=== PATIENT | female | born 1965 | race Caucasian/White ===

== ENCOUNTER 2017-11-24 11:56 | Emergency (ER) | payer OTHER ==
[2017-11-24] MEDS ORDERED: LOPERAMIDE HCL 2 MG CAPSULE ONE (13:17)
[2017-11-24] MEDS ORDERED: NA CHLORIDE 0.9% 1,000 ML ONE (13:17)
[2017-11-24 13:21] LABS: Absolute Lymphocytes (CBC) 0.7 K/uL (0.7-4.9); Absolute Monocytes 0.4 K/uL (0.1-1.3); Absolute Neutrophil 9.5 K/uL (1.8-8.0); Basophils % 0.7 % (0-1.3); Eosinophils % 0.1 % (0-4.4); Hematocrit 40.5 % (36.0-45.0); Lymphocytes % 6.6 % (15.3-44.8); MCH 28.8 pg (27.0-35.0); MCV 87.3 fL (80-100); MPV 8.6 fL (7.6-11.3); Monocytes % 3.5 % (3.3-12.3); RBC Red Blood Cell Count 4.64 M/uL (3.86-4.86)
[2017-11-24 13:37] LABS: Blood Morphology Comment NOT SEEN (NOT SEEN); Platelet Estimate ADEQ; Urine White Blood Cell Casts OK
[2017-11-24 13:38] LABS: Glomerular Filtration Rate > 60 mL/min (>60)
[2017-11-24 14:12] LABS: Albumin 4.4 g/dL (3.2-5.5); Bilirubin Direct 0.1 mg/dL (0-0.2); Bilirubin Total 0.6 mg/dL (0.3-1.2); Potassium 3.8 mEq/L (3.6-5.0); Protein, Total 7.4 g/dL (6.0-8.3)
[2017-11-24 14:17] LABS: Urine Blood 2+ (NEG); Urine Glucose NEGATIVE (NEG); Urine Protein NEGATIVE (NEG); Urine Specific Gravity 1.025 (1.005-1.030); Urine pH 7.5 (5.0-7.0)
[2017-11-24 14:42] LABS: Urine Bacteria <20 /HPF (<20); Urine Culture Reflex Order NOT NEEDED; Urine Mucus NS /HPF (NONE SEEN)
--- NOTE | 2017-11-24 14:58 | ER ---
Nurse's Notes [facility] Name: Marina Espino Age: 52 yrs Sex: Female : 1965 Arrival Date: 11/24/2017 Time: 11:58 Bed 17 Private MD: David Carbone Diagnosis: Diarrhea, unspecified;Dehydration Presentation: 11/24 12:10 Presenting complaint: Patient states: i got diarrhea that started this AM; complaints hj of abd pain and L arm pain; denies fever and chills;. Transition of care: patient was not received from another setting of care. Onset of symptoms was November 24, 2017. Care prior to arrival: None. 12:10 Method Of Arrival: Wheelchair hj 12:10 Acuity: GERRI 3 hj Triage Assessment: 12:12 General: Appears in no apparent distress. uncomfortable, Behavior is calm, cooperative, hj appropriate for age. Pain: Complains of pain in abdomen and left arm. GI: Reports diarrhea. 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 - Social history:: Smoking status: Patient/guardian denies using tobacco. - Hospitalizations: : No recent hospitalization is reported. - History obtained from: caregiver. Screenin:00 Abuse screen: Denies threats or abuse. Nutritional screening: No deficits noted. em Tuberculosis screening: No symptoms or risk factors identified. Fall Risk None identified. Assessment: 12:37 General: Appears in no apparent distress. comfortable, Behavior is calm, cooperative. em Pain: Complains of pain in left upper quadrant Pain currently is 8 out of 10 on a pain scale. Pain began this morning. Neuro: Level of Consciousness is awake, alert, obeys commands, Oriented to person, place, time, situation. Cardiovascular: Capillary refill < 3 seconds Patient's skin is warm and dry. Respiratory: Airway is patent Respiratory effort is even, unlabored, Respiratory pattern is regular, symmetrical. GI: Abdomen is round Abd is non tender X 4 quads Abd is rigid X 4 quads. : Urine is clear. EENT: No signs and/or symptoms were reported regarding the EENT system. Derm: Skin is intact, Skin is pink, warm \T\ dry. Musculoskeletal: Parent/caregiver report the patient having pt is wheelchair bound, has hx of cerebral palsy. 13:00 Reassessment: Patient appears in no apparent distress at this time. I agree with above iw assessment by Willie Min LVN. 13:40 Reassessment: Patient appears in no apparent distress at this time. Patient and/or em family updated on plan of care and expected duration. Pain level reassessed. Patient is alert, oriented x 3, equal unlabored respirations, skin warm/dry/pink. 14:38 Reassessment: Patient appears in no apparent distress at this time. Patient and/or em family updated on plan of care and expected duration. Pain level reassessed. Patient is alert, oriented x 3, equal unlabored respirations, skin warm/dry/pink. 15:20 Reassessment: Patient appears in no apparent distress at this time. Patient and/or em family updated on plan of care and expected duration. Pain level reassessed. Patient is alert, oriented x 3, equal unlabored respirations, skin warm/dry/pink. Vital Signs: 12:12 BP 113 / 61; Pulse 92; Resp 18; Temp 98.5(TE); Pulse Ox 100% on R/A; Weight 58.97 kg; Height 4 ft. 11 in. (149.86 cm); 13:58 BP 137 / 87; Pulse 98; Resp 15; Pulse Ox 99% on R/A; mh5 14:59 BP 133 / 69; Pulse 78; Resp 16; Pulse Ox 99% on R/A; Pain 5/10; em 12:12 Body Mass Index 26.26 (58.97 kg, 149.86 cm) ED Course: 11:58 Patient arrived in ED. rg4 11:58 David Carbone DO is Private Physician. rg4 12:11 Triage completed. 12:12 Arm band placed on left wrist. 12:23 Arlene Amin FNP is [facility]. kav 12:23 Cristobal Burton MD is Attending Physician. kav 12:55 Willie Min LVN is Primary Nurse. em 13:00 Patient has correct armband on for positive identification. Bed in low position. Call em light in reach. Side rails up X2. Adult w/ patient. 13:00 No provider procedures requiring assistance completed. Initial lab(s) drawn, by me, em sent to lab. Inserted saline lock: 20 gauge in left antecubital area, using aseptic technique. Blood collected. 14:02 Straight cath inserted, using sterile technique, 16 Fr. Returned clear yellow urine. iw Patient tolerated well. 14:02 Urine collected: straight cath specimen, clear. iw 14:10 Urine collected: urine yesenia sent. 5 14:14 Urine Microscopic Only [facility] 14:57 David Carbone DO is Referral Physician. kav 15:28 IV discontinued, intact, bleeding controlled, No redness/swelling at site. Pressure em dressing applied. Administered Medications: 13:04 Drug: NS 0.9% 1000 ml Route: IV; Rate: 1 bolus; Site: left antecubital; em 15:10 Follow up: IV Status: Completed infusion; IV Intake: 1000ml em 13:04 Drug: Imodium A-D 4 mg Route: PO; em 15:10 Follow up: Response: No adverse reaction em 15:20 Not Given (Patient Refused): [place] 5 mg-325 mg 1 tabs PO once kav 15:20 Drug: TORadol 30 mg Route: IM; Site: right deltoid; em 15:29 Follow up: Response: Medication administered at discharge. em Intake: 15:10 IV: 1000ml; Total: 1000ml. em Outcome: 14:57 Discharge ordered by MD. kav 15:28 Discharged to home via wheelchair. em 15:28 Condition: good 15:28 Discharge instructions given to patient, Instructed on discharge instructions, follow up and referral plans. Demonstrated understanding of instructions, follow-up care. 15:31 Patient left the ED. em Signatures: Arlene Amin FNP WASHING AND SCREENING PLANT SUPERVISOR kaWillie Zapata LVN LVN em Tanya Rivero RN RN Chauncey Barron RN RN hj Garcia, Rubi [facility] Iveth Lopez mh5 Corrections: (The following items were deleted from the chart) 12:14 12:12 Pulse 92bpm; Resp 18bpm; Pulse Ox 100% RA; Temp 98.5F Temporal; 58.97 kg; Height hj 4 ft. 11 in.; BMI: 26.2; hj
--- NOTE | 2017-11-24 14:58 | EDPHYS ---
Physician Documentation [facility] Name: Marina Espino Age: 52 yrs Sex: Female : 1965 Arrival Date: 11/24/2017 Time: 11:58 Bed 17 Private MD: David Carbone ED Physician Cristobal Burton HPI: 11/24 12:46 This 52 yrs old Female presents to ER via Wheelchair with complaints of kav Diarrhea. 12:46 The patient presents to the emergency department with diarrhea, 2 times today. Onset: kav The symptoms/episode began/occurred acutely, 6 hour(s) ago. Possible causes: unknown. The symptoms are aggravated by nothing. The symptoms are alleviated by nothing. Associated signs and symptoms: The patient has no apparent associated signs or symptoms. Severity of symptoms: At their worst the symptoms were very mild just prior to arrival, in the emergency department the symptoms are unchanged. The patient has not experienced similar symptoms in the past. The patient has not recently seen a physician. pmhx: cerebal palsy. gas dispenser brought to ed for chief c/o diarrhea x 2 since this moning. gas dispenser gave one dose of imodium and patient continued to have diarrhea so, she brought the patient to the ed for further eval and tx. 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 - Social history:: Smoking status: Patient/guardian denies using tobacco. - Hospitalizations: : No recent hospitalization is reported. - History obtained from: caregiver. ROS: 12:48 Constitutional: Negative for fever, chills, and weight loss, Eyes: Negative for injury, kav pain, redness, and discharge, ENT: Negative for injury, pain, and discharge, Neck: Negative for injury, pain, and swelling, Cardiovascular: Negative for chest pain, palpitations, and edema, Respiratory: Negative for shortness of breath, cough, wheezing, and pleuritic chest pain, Back: Negative for injury and pain, : Negative for injury, bleeding, discharge, and swelling, MS/Extremity: Negative for injury and deformity, Skin: Negative for injury, rash, and discoloration, Neuro: Negative for headache, weakness, numbness, tingling, and seizure, Psych: Negative for depression, anxiety, suicide ideation, homicidal ideation, and hallucinations, Allergy/Immunology: Negative for hives, rash, and allergies, Endocrine: Negative for neck swelling, polydipsia, polyuria, polyphagia, and marked weight changes, Hematologic/Lymphatic: Negative for swollen nodes, abnormal bleeding, and unusual bruising. 12:48 Abdomen/GI: Positive for abdominal pain, of the right upper quadrant, left upper quadrant, right lower quadrant and left lower quadrant. Exam: 12:48 Constitutional: This is a well developed, well nourished patient who is awake, alert, kav and in no acute distress. Head/Face: Normocephalic, atraumatic. Eyes: Pupils equal round and reactive to light, extra-ocular motions intact. Lids and lashes normal. Conjunctiva and sclera are non-icteric and not injected. Cornea within normal limits. Periorbital areas with no swelling, redness, or edema. ENT: Nares patent. No nasal discharge, no septal abnormalities noted. Tympanic membranes are normal and external auditory canals are clear. Oropharynx with no redness, swelling, or masses, exudates, or evidence of obstruction, uvula midline. Mucous membranes moist. Neck: Trachea midline, no thyromegaly or masses palpated, and no cervical lymphadenopathy. Supple, full range of motion without nuchal rigidity, or vertebral point tenderness. No Meningismus. Chest/axilla: Normal chest wall appearance and motion. Nontender with no deformity. No lesions are appreciated. Cardiovascular: Regular rate and rhythm with a normal S1 and S2. No gallops, murmurs, or rubs. Normal PMI, no JVD. No pulse deficits. Respiratory: Lungs have equal breath sounds bilaterally, clear to auscultation and percussion. No rales, rhonchi or wheezes noted. No increased work of breathing, no retractions or nasal flaring. Back: No spinal tenderness. No costovertebral tenderness. Full range of motion. Skin: Warm, dry with normal turgor. Normal color with no rashes, no lesions, and no evidence of cellulitis. MS/ Extremity: Pulses equal, no cyanosis. Neurovascular intact. Full, normal range of motion. Neuro: Awake and alert, GCS 15, oriented to person, place, time, and situation. Cranial nerves II-XII grossly intact. Motor strength 5/5 in all extremities. Sensory grossly intact. Cerebellar exam normal. Normal gait. Psych: Awake, alert, with orientation to person, place and time. Behavior, mood, and affect are within normal limits. 12:48 Abdomen/GI: Inspection: abdomen appears normal, Bowel sounds: normal, in all quadrants, Palpation: abdomen is soft and non-tender, in all quadrants. Vital Signs: 12:12 BP 113 / 61; Pulse 92; Resp 18; Temp 98.5(TE); Pulse Ox 100% on R/A; Weight 58.97 kg; hj Height 4 ft. 11 in. (149.86 cm); 13:58 BP 137 / 87; Pulse 98; Resp 15; Pulse Ox 99% on R/A; mh5 14:59 BP 133 / 69; Pulse 78; Resp 16; Pulse Ox 99% on R/A; Pain 5/10; em 12:12 Body Mass Index 26.26 (58.97 kg, 149.86 cm) MDM: 12:23 Patient medically screened. ka 14:56 Data reviewed: vital signs, nurses notes, lab test result(s). ED course: diarrhea has kav abated. 11/24 12:45 Order name: Amylase, Serum formerly [facility] 11/24 12:45 Order name: Basic Metabolic Panel formerly [facility] 11/24 12:45 Order name: CBC with Diff formerly [facility] 11/24 12:45 Order name: Creatinine for Radiology formerly [facility] 11/24 12:45 Order name: Hepatic Function formerly [facility] 11/24 12:45 Order name: Lipase formerly [facility] 11/24 12:45 Order name: Urine Microscopic Only formerly [facility] 11/24 13:37 Order name: CBC with Automated Diff; Complete Time: 13:41 EDMS 11/24 13:41 Interpretation: Normal except: ALVARO% 89.1; LYM% 6.6; NEUT A 9.5. [facility] 11/24 13:37 Order name: CBC Smear Scan; Complete Time: 13:41 EDMS 11/24 13:41 Interpretation: Within normal limits. 11/24 13:39 Order name: Creatinine (Radiology Only); Complete Time: 13:40 EDMS 11/24 13:41 Interpretation: Within normal limits. 11/24 14:13 Order name: Urine Dipstick--Ancillary (enter results) ms 11/24 14:13 Order name: Urine --Ancillary (enter results) ms 11/24 14:13 Order name: Basic Metabolic Panel; Complete Time: 14:54 EDMS 11/24 14:54 Interpretation: Normal except: GFR 67. 11/24 14:13 Order name: Liver (Hepatic) Function; Complete Time: 14:55 EDMS 11/24 14:55 Interpretation: Within normal limits. 11/24 12:45 Order name: IV Saline Lock; Complete Time: 13:26 [facility] 11/24 12:46 Order name: Labs collected and sent; Complete Time: 13:26 [facility] 11/24 12:46 Order name: Urine Dipstick-Ancillary (obtain specimen); Complete Time: 14:14 11/24 14:13 Order name: Amylase Level; Complete Time: 14:55 EDMS 11/24 14:55 Interpretation: Within normal limits. 11/24 14:13 Order name: Lipase; Complete Time: 14:54 EDMS 11/24 14:54 Interpretation: LIP 15. 11/24 14:17 Order name: Urine --Ancillary; Complete Time: 14:55 EDMS 11/24 14:56 Interpretation: Within normal limits. [facility] 11/24 14:17 Order name: Urine Dipstick-Ancillary; Complete Time: 14:55 EDMS 11/24 14:55 Interpretation: Normal except: UBLD 2+; UPH 7.5. [facility] 11/24 14:43 Order name: Urine Microscopic Only; Complete Time: 14:54 EDMS 11/24 14:54 Interpretation: Normal except: URBC 10-20. [facility] Administered Medications: 13:04 Drug: NS 0.9% 1000 ml Route: IV; Rate: 1 bolus; Site: left antecubital; em 15:10 Follow up: IV Status: Completed infusion; IV Intake: 1000ml em 13:04 Drug: Imodium A-D 4 mg Route: PO; em 15:10 Follow up: Response: No adverse reaction em 15:20 Not Given (Patient Refused): [place] 5 mg-325 mg 1 tabs PO once kav 15:20 Drug: TORadol 30 mg Route: IM; Site: right deltoid; em 15:29 Follow up: Response: Medication administered at discharge. em Disposition: 17:30 Co-signature as Attending Physician, Cristobal Burton MD I agree with the assessment and kdr plan of care. Disposition: 11/24/17 14:57 Discharged to Home. Impression: Diarrhea, unspecified, Dehydration. - Condition is Stable. - Discharge Instructions: Diarrhea, Rotavirus Infection, Dehydration, Adult, [id number], Rehydration, Adult. - Medication Reconciliation Form, Thank You Letter, Antibiotic Education, Prescription Opioid Use form. - Follow up: David Carbone DO; When: 2 - 3 days; Reason: Recheck today's complaints, Continuance of care, Re-evaluation by your physician. - Problem is new. - Symptoms have improved. - Notes: Over The Counter Imodium as needed and as directed Signatures: Dispatcher [employer] EDMS Cristobal Burton MD MD kdr Arlene Amin, ROUTE CLERK ROUTE CLERK Willie Jacobo, GAUGE MACHINE OPERATOR GAUGE MACHINE OPERATOR em Chauncey Barron, RN RN hj Corrections: (The following items were deleted from the chart) 13:25 12:45 Urine Test ordered. kav em 13:41 13:41 Within normal limits. kav kav 13:41 13:41 Within normal limits. kav kav 14:54 13:41 OrderId: [id number] PrecursorText: InterpretationText: kav kav 14:54 14:54 Normal except: LIP 15. kav kav 14:55 13:41 OrderId: [id number] PrecursorText: InterpretationText: kav kav 14:55 14:55 Normal except: UBLD 2+. kav kav 14:56 14:56 Within normal limits. kav kav 14:56 14:56 OrderId: [id number] PrecursorText: InterpretationText: kav kav
[2017-11-24] MEDS ORDERED: HYDROCODONE/APAP 5/325 MG TAB ONE (15:31)
[2017-11-24] MEDS ORDERED: KETOROLAC 30 MG/ML INJ ONE (15:40)
== END 2017-11-24 15:31 | disposition home or self-care (01) ==
LOC: ER 11:56
DX: E86.0 Dehydration (principal); E78.5 Hyperlipidemia, unspecified; F32.9 Major depressive disorder, single episode, unspecified; Z88.0 Allergy status to penicillin
CPT/HCPCS: 36415; 51702; 80048; 80076; 81025; 82150; 83690; 85025; 96360; 96361; 96372; 99283; J7030; 81003; 81015

== ENCOUNTER 2018-03-19 13:50 | Emergency (ER) | payer OTHER ==
[2018-03-19 15:47] LABS: Absolute Lymphocytes (CBC) 1.5 K/uL (0.7-4.9); Absolute Monocytes 0.3 K/uL (0.1-1.3); Absolute Neutrophil 3.6 K/uL (1.8-8.0); Basophils % 1.1 % (0-1.3); Eosinophils % 1.9 % (0-4.4); Hematocrit 38.7 % (36.0-45.0); Lymphocytes % 26.5 % (15.3-44.8); MCH 28.9 pg (27.0-35.0); MCV 85.4 fL (80-100); MPV 8.3 fL (7.6-11.3); Monocytes % 4.8 % (3.3-12.3); RBC Red Blood Cell Count 4.53 M/uL (3.86-4.86)
[2018-03-19 16:10] LABS: Albumin 3.6 g/dL (3.4-5.0); Bilirubin Direct 0.2 mg/dL (0-0.2); Bilirubin Total 0.5 mg/dL (0.2-1.0); Potassium 4.2 mmol/L (3.5-5.1); Protein, Total 7.1 g/dL (6.4-8.2)
[2018-03-19 16:33] LABS: Urine Blood 2+ (NEG); Urine Glucose NEGATIVE (NEG); Urine Protein TRACE (NEG)
[2018-03-19 16:34] LABS: Urine Bacteria 20-50 /HPF (<20); Urine Culture Reflex Order NOT NEEDED; Urine RBC 20-50 /HPF (NONE SEEN)
--- NOTE | 2018-03-19 17:02 | RAD REPORT ---
EXAM DESCRIPTION: CT - Abdomen Pelvis W Contrast - 03/19/2018 4:32 pm CLINICAL HISTORY: Dysuria, left upper quadrant pain COMPARISON: CT study December 2016 TECHNIQUE: Biphasic, helical CT imaging of the abdomen and pelvis was performed following 100 ml non -ionic IV contrast. No oral contrast. All CT scans are performed using dose optimization technique as appropriate and may include automated exposure control or mA/KV adjustment according to patient size. FINDINGS: No suspicious findings in the lung bases. The liver, spleen, and pancreas show no suspicious findings. Gallbladder is tightly contracted. No bi liary tree dilatation. Gallstones can be occult. Symmetric renal function is seen with no hydronephrosis or suspicious renal mass. No pyelonephritis o r acute renal parenchymal process. Urinary bladder is contracted. Rodney of the urinary bladder due ap pear slightly thickened and edematous. Cystitis is possible and can be correlated with any UA abnorma lity. Uterus is absent. Ovaries are absent or atrophic. No adnexal mass. Large amount of fluid is seen filling but not dilating the stomach. No acute gastric wall mass or wal l thickening. No acute large or small bowel finding. Moderate stool volume present in the colon. No free air, free fluid or inflammatory stranding. No hernia, mass or bulky lymphadenopathy. No adrenal abnormality. Disc and bony degenerative changes are present. Thickening of the left oblique musculature near the i leum is unchanged from prior imaging. IMPRESSION: Urinary bladder wall thickening and enhancement suspicious for cystitis. Correlation is needed with any clinical findings or UA abnormalities. No pyelonephritis, hydronephrosis or acute renal process. No acute GI finding identifiable. There is no free air, abscess or surgically emergent finding.
--- NOTE | 2018-03-19 17:13 | EDPHYS ---
Physician Documentation [facility] Name: Marina Espino Age: 52 yrs Sex: Female : 1965 Arrival Date: 03/19/2018 Time: 13:53 Bed 20 Private MD: David Carbone ED Physician Arturo Cameron HPI: 03/19 14:31 This 52 yrs old Female presents to ER via Wheelchair with complaints of jmm Abdominal Pain, Urinary Problem. 14:31 The patient presents with abdominal pain in the left upper quadrant, in the left lower jmm quadrant. Onset: The symptoms/episode began/occurred gradually, 1 week(s) ago. The symptoms do not radiate. Associated signs and symptoms: Pertinent positives: dysuria. This is a 52 year old female with a history of cerebral palsy that presents to the ED with left sided abdominal and flank pain beginning 1 week ago. Patient denies vomiting or diarrhea. 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 - Social history:: Smoking status: Patient/guardian denies using tobacco. - Ebola Screening: : No symptoms or risks identified at this time. ROS: 14:31 Constitutional: Negative for fever, chills, and weight loss, Cardiovascular: Negative jmm for chest pain, palpitations, and edema, Respiratory: Negative for shortness of breath, cough, wheezing, and pleuritic chest pain. 14:31 Back: Negative for injury and pain, : Negative for injury, bleeding, discharge, and swelling. 14:31 Abdomen/GI: Positive for abdominal pain, nausea. 14:31 All other systems are negative. Exam: 14:31 Constitutional: This is a well developed, well nourished patient who is awake, alert, jmm and in no acute distress. Head/Face: atraumatic. Chest/axilla: Normal chest wall appearance and motion. Cardiovascular: Regular rate and rhythm. No edema appreciated Respiratory: Normal respirations, no respiratory distress appreciated 14:31 Abdomen/GI: Inspection: abdomen appears normal, Bowel sounds: normal, Palpation: soft, mild abdominal tenderness, in the left upper quadrant and left lower quadrant. 14:31 Skin: Appearance: Color: normal in color. 14:31 Neuro: Orientation: is normal, Mentation: is normal, Memory: is normal. 14:31 Psych: Behavior/mood is pleasant, cooperative. Vital Signs: 14:09 BP 130 / 55; Pulse 105; Resp 20; Temp 99.5; sv 15:36 BP 144 / 81; Pulse 81; Resp 18; Pulse Ox 97% on R/A; Pain 5/10; em 16:56 BP 144 / 86; Pulse 75; Resp 18; Pulse Ox 100% on R/A; em 17:38 BP 130 / 84; Pulse 86; Resp 18; Temp 98.3(O); Pulse Ox 100% on R/A; Pain 4/10; em MDM: 14:15 Patient medically screened. [facility] 17:05 Data reviewed: vital signs, nurses notes, lab test result(s). [facility] 17:09 ED course: Patient is alert and non toxic in appearance in the ED. Patient will be [facility] prescribed oral antibiotics. Family given return precautions. Family understood and agrees with the plan of care. . 03/19 14:30 Order name: Amylase, Serum; Complete Time: 16:25 [facility] 03/19 14:30 Order name: Basic Metabolic Panel; Complete Time: 16:25 [facility] 03/19 14:30 Order name: CBC with Diff; Complete Time: 16:25 [facility] 03/19 14:30 Order name: Creatinine for Radiology; Complete Time: 16:25 [facility] 03/19 14:30 Order name: Hepatic Function; Complete Time: 16:25 [facility] 03/19 14:30 Order name: Lipase; Complete Time: 16:25 [facility] 03/19 14:30 Order name: Urine Microscopic Only; Complete Time: 16:43 [facility] 03/19 14:30 Order name: IV Saline Lock; Complete Time: 15:35 [facility] 03/19 14:30 Order name: Labs collected and sent; Complete Time: 15:35 [facility] 03/19 14:30 Order name: CT Abd/Pelvis - W/Contrast; Complete Time: 17:05 m 03/19 16:02 Order name: Urine Culture ss 03/19 16:11 Order name: Urine Dipstick--Ancillary (enter results); Complete Time: 16:43 eb 03/19 14:30 Order name: Urine Dipstick-Ancillary (obtain specimen); Complete Time: 15:59 [facility] Administered Medications: 17:28 Drug: [place] 5 mg-325 mg 1 tabs Route: PO; em 17:38 Follow up: Response: Medication administered at discharge. em 17:28 Drug: Macrobid 100 mg Route: PO; em 17:38 Follow up: Response: Medication administered at discharge. em Disposition: 03/20 06:38 Co-signature as Attending Physician, Arturo Cameron MD I agree with the assessment and [facility] plan of care. Disposition: 03/19/18 17:12 Discharged to Home. Impression: Cystitis, unspecified, Urinary tract infection, site not specified. - Condition is Stable. - Discharge Instructions: Urinary Tract Infection. - Prescriptions for Tylenol- Codeine #3 300-30 mg Oral Tablet - take 1 tablet by ORAL route every 6 hours As needed; 12 tablet. Macrobid 100 mg Oral Capsule - take 1 capsule by ORAL route every 12 hours for 7 days; 14 capsule. - Medication Reconciliation Form, Thank You Letter, Antibiotic Education, Prescription Opioid Use form. - Follow up: David Carbone DO; When: 2 - 3 days; Reason: Continuance of care. Signatures: Dispatcher [employer] Allie Barrett RN RN sv Anderson, Corey, MD MD cha Mickail, Joel, PA PA [facility] Willie Min, MIXER FOAM RUBBER MIXER FOAM RUBBER em Corrections: (The following items were deleted from the chart) 03/19 17:41 17:12 03/19/2018 17:12 Discharged to Home. Impression: Cystitis, unspecified; Urinary em tract infection, site not specified. Condition is Stable. Forms are Medication Reconciliation Form, Thank You Letter, Antibiotic Education, Prescription Opioid Use. Follow up: David Carbone; When: 2 - 3 days; Reason: Continuance of care. vanessa
--- NOTE | 2018-03-19 17:13 | ER ---
Nurse's Notes [facility] Name: Marina Espino Age: 52 yrs Sex: Female : 1965 Arrival Date: 03/19/2018 Time: 13:53 Bed 20 Private MD: David Carbone Diagnosis: Cystitis, unspecified;Urinary tract infection, site not specified Presentation: 03/19 13:55 Presenting complaint: Patient states: burning with urination and LUQ pain that started sv last week. Transition of care: patient was not received from another setting of care. Onset of symptoms was March 12, 2018. Care prior to arrival: None. 13:55 Method Of Arrival: Wheelchair sv 13:55 Acuity: GERRI 3 sv 16:10 Initial Sepsis Screen: Does the patient meet any 2 criteria? No. Patient's initial em sepsis screen is negative. Does the patient have a suspected source of infection? No. Patient's initial sepsis screen is negative. 16:10 Risk Assessment: Do you want to hurt yourself or someone else? Patient reports no em desire to harm self or others. Triage Assessment: 16:10 General: Appears in no apparent distress. uncomfortable, Behavior is calm, cooperative. em Pain: Complains of pain in back. GI: Abdomen is flat, Bowel sounds present X 4 quads. Abd is soft X 4 quads Abdomen is tender to palpation X 4 quads. 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 - Social history:: Smoking status: Patient/guardian denies using tobacco. - Ebola Screening: : No symptoms or risks identified at this time. Screenin:10 Abuse screen: Denies threats or abuse. Nutritional screening: No deficits noted. em Tuberculosis screening: No symptoms or risk factors identified. Fall Risk None identified. Assessment: 14:40 General: Appears in no apparent distress. comfortable, Behavior is calm, cooperative. em Pain: Complains of pain in back. Neuro: Level of Consciousness is awake, alert, obeys commands, Oriented to person, place, time, situation. Cardiovascular: Capillary refill is > 3 seconds in bilateral legs. Cardiovascular: Denies chest pain. Respiratory: Airway is patent Respiratory effort is even, unlabored, Respiratory pattern is regular, symmetrical. GI: Abdomen is flat, Abd is soft X 4 quads Abdomen is tender to palpation X 4 quads. Reports nausea, Patient currently denies vomiting. : Reports burning with urination, since 2 weeks pain urinary frequency. EENT: Oral mucosa is dry. Derm: Skin is intact, Skin is pink, warm \T\ dry. Musculoskeletal: Range of motion: limited in left hip, left knee, left ankle, right hip, right knee and right ankle paraplegic. 14:45 General: The previous assessment is accurate, call light remains within reach. . ss 15:43 Reassessment: Patient appears in no apparent distress at this time. Patient and/or em family updated on plan of care and expected duration. Pain level reassessed. Patient is alert, oriented x 3, equal unlabored respirations, skin warm/dry/pink. pending CT results, warm blanket given Patient states feeling better. 16:57 Reassessment: Patient appears in no apparent distress at this time. Patient and/or em family updated on plan of care and expected duration. Pain level reassessed. Patient is alert, oriented x 3, equal unlabored respirations, skin warm/dry/pink. Vital Signs: 14:09 BP 130 / 55; Pulse 105; Resp 20; Temp 99.5; sv 15:36 BP 144 / 81; Pulse 81; Resp 18; Pulse Ox 97% on R/A; Pain 5/10; em 16:56 BP 144 / 86; Pulse 75; Resp 18; Pulse Ox 100% on R/A; em 17:38 BP 130 / 84; Pulse 86; Resp 18; Temp 98.3(O); Pulse Ox 100% on R/A; Pain 4/10; em ED Course: 13:53 Patient arrived in ED. sb2 13:53 David Carbone DO is Private Physician. sb2 13:57 Juanito Heaton, ARPAN is Primary Nurse. mb3 14:07 Dionte Bran PA is PHCP. jmm 14:07 Arturo Cameron MD is Attending Physician. m 14:08 Triage completed. sv 14:09 Arm band placed on left wrist. sv 15:18 Willie Min LVN is Primary Nurse. em 15:40 No provider procedures requiring assistance completed. Inserted saline lock: 20 gauge em in left antecubital area, using aseptic technique. Blood collected. 15:40 Initial lab(s) drawn, by me, sent to lab. em 16:10 Patient has correct armband on for positive identification. Placed in gown. Bed in low em position. Call light in reach. Side rails up X2. Adult w/ patient. 16:32 CT completed. Patient moved to CT via stretcher. Patient moved back from CT. cw1 16:33 CT Abd/Pelvis - W/Contrast In Process Unspecified. EDMS 17:10 David Carbone DO is Referral Physician. jmm 17:39 IV discontinued, intact, bleeding controlled, No redness/swelling at site. Pressure em dressing applied. Administered Medications: 17:28 Drug: [place] 5 mg-325 mg 1 tabs Route: PO; em 17:38 Follow up: Response: Medication administered at discharge. em 17:28 Drug: Macrobid 100 mg Route: PO; em 17:38 Follow up: Response: Medication administered at discharge. em Outcome: 17:12 Discharge ordered by MD. m 17:40 Discharged to home via wheelchair, with friend. em 17:40 Condition: good 17:40 Discharge instructions given to patient, friend, Instructed on discharge instructions, follow up and referral plans. medication usage, Demonstrated understanding of instructions, follow-up care, medications, Prescriptions given X 2. 17:41 Patient left the ED. em Addendum: 03/22/2018 07:58 Addendum: Culture Results: Positive urine culture. No further action required. Bacteria i w sensitive to prescribed antibiotic. Signatures: Dispatcher [employer] EDMS Allie Caceres, RN Dionte Mills PA PA [facility] Willie Min LVN CARBONATION EQUIPMENT TENDER em Tanya Rivero RN RN Gabby Ozuna RN RN ss Woodley, Crystal cw1 Renetta Vasquez sb2 Heaton, Juanito, RN RN mb3 Corrections: (The following items were deleted from the chart) 03/19 17:00 14:40 Musculoskeletal: Range of motion: em em
[2018-03-19] MEDS ORDERED: NITROFURAN MACRO 100 MG CAP PO ONE (17:25)
[2018-03-19] MEDS ORDERED: HYDROCODONE/APAP 5/325 MG TAB ONE (17:25)
== END 2018-03-19 17:41 | disposition home or self-care (01) ==
LOC: ER 13:50
DX: N30.90 Cystitis, unspecified without hematuria (principal); N39.0 Urinary tract infection, site not specified; E78.5 Hyperlipidemia, unspecified; F41.9 Anxiety disorder, unspecified; F32.9 Major depressive disorder, single episode, unspecified; Z88.0 Allergy status to penicillin
CPT/HCPCS: 36415; 74177; 80048; 80076; 82150; 83690; 85025; 87077; 87086; 87088; 87186; 99284; Q9967; 81003; 81015

== ENCOUNTER 2018-04-17 19:46 | Emergency (ER) | payer OTHER ==
[2018-04-17 20:50] LABS: Absolute Lymphocytes (CBC) 1.7 K/uL (0.7-4.9); Absolute Monocytes 0.3 K/uL (0.1-1.3); Absolute Neutrophil 2.9 K/uL (1.8-8.0); Basophils % 0.6 % (0-1.3); Eosinophils % 1.1 % (0-4.4); Hematocrit 38.2 % (36.0-45.0); Lymphocytes % 34.6 % (15.3-44.8); MCH 28.9 pg (27.0-35.0); MCV 86.9 fL (80-100); MPV 8.2 fL (7.6-11.3); Monocytes % 5.4 % (3.3-12.3)
[2018-04-17 21:15] LABS: Albumin 3.5 g/dL (3.4-5.0); Bilirubin Direct 0.1 mg/dL (0-0.2); Bilirubin Total 0.4 mg/dL (0.2-1.0); Potassium 4.1 mmol/L (3.5-5.1); Protein, Total 6.7 g/dL (6.4-8.2)
--- NOTE | 2018-04-17 22:45 | RAD REPORT ---
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 TECHNIQUE: Axial 5 mm thick images of the head were obtained without IV contrast. All CT scans are performed using dose optimization technique as appropriate and may include automated exposure control or mA/KV adjustment according to patient size. FINDINGS: No intracranial hemorrhage, mass, edema or shift of mid-line structures. No acute infarcti on changes seen. No abnormal extra-axial fluid collections. Ventricles are normal. No significant atr ophy or chronic ischemic change. Mastoid air cells and visualized portions of the paranasal sinuses are clear. No acute bony findings. Hyperdense material fills the majority of the right globe. This is presumed to be chronic. A mass or aggressive process of the globe is not suspected. Correlation is needed with exam finding. Postsurgic al changes to the left globe noted. No acute hemorrhage or acute globe or orbit finding. IMPRESSION: No acute intracranial finding. Chronic changes to both globes as detailed. Concerns for acute infarction can be addressed with MR imaging.
[2018-04-17] MEDS ORDERED: NA CHLORIDE 0.9% 1,000 ML ONE (22:56)
[2018-04-17 23:39] LABS: Urine Blood 2+ (NEG); Urine Glucose NEGATIVE (NEG); Urine Protein NEGATIVE (NEG); Urine Specific Gravity 1.025 (1.005-1.030)
[2018-04-17 23:50] LABS: Urine Amorphous Sediment 1+ /HPF (NONE SEEN); Urine Bacteria 20-50 /HPF (<20); Urine Culture Reflex Order REFLEXED
--- NOTE | 2018-04-18 00:23 | ER ---
Nurse's Notes [facility] Name: Marina Espino Age: 52 yrs Sex: Female : 1965 Arrival Date: 04/17/2018 Time: 20:02 Bed 30 Private MD: out of town, doctor Diagnosis: Weakness;Dehydration Presentation: 04/17 19:45 Presenting complaint: EMS states: that for the past 2 days pt has been having vision fc problems on and off. States that pt complained that she was losing her vision. Pt is concerned that this has happened in the past but it came back after a few days. Denies any pain, shortness of breath, weakness or n/v. Transition of care: patient was not received from another setting of care. Onset of symptoms was April 15, 2018. Risk Assessment: Do you want to hurt yourself or someone else? Patient reports no desire to harm self or others. Initial Sepsis Screen: Does the patient meet any 2 criteria? No. Patient's initial sepsis screen is negative. Does the patient have a suspected source of infection? No. Patient's initial sepsis screen is negative. Care prior to arrival: None. 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 - Social history:: Smoking status: Patient/guardian denies using tobacco. - Ebola Screening: : Patient negative for fever greater than or equal to 101.5 degrees Fahrenheit, and additional compatible Ebola Virus Disease symptoms Patient denies exposure to infectious person Patient denies travel to an Ebola-affected area in the 21 days before illness onset. Screenin:07 Abuse screen: Denies threats or abuse. Nutritional screening: No deficits noted. fc Tuberculosis screening: No symptoms or risk factors identified. Fall Risk No fall in past 12 months (0 pts). Secondary diagnosis (15 points) impaired mobility, No IV (0 pts). Ambulatory Aid- None/Bed Rest/Nurse Assist (0 pts). Gait- Impaired (20 pts.). Mental Status- Overestimates/Forgets Limitations (15 pts.). Total Hamlin Fall Scale indicates High Risk Score (45 or more points). Fall prevention measures have been instituted. Side Rails Up X 2 Placed Close to Nursing Station Frequent Obs/Assessments Occuring Family Present and informed to notify staff if the need to leave the bedside As available patient and family educated on Fall Prevention Program and Strategies. Assessment: 20:13 General: Appears in no apparent distress. comfortable, Behavior is calm, cooperative. rv Pain: Denies pain. Neuro: Level of Consciousness is awake, alert, obeys commands, Oriented to person, place, time. Cardiovascular: Capillary refill < 3 seconds. Respiratory: Airway is patent. GI: No signs and/or symptoms were reported involving the gastrointestinal system. : No signs and/or symptoms were reported regarding the genitourinary system. EENT: Reports blurred vision in BOTH EYES. Derm: Skin is intact. 21:52 Reassessment: Patient appears in no apparent distress at this time. Patient and/or rv family updated on plan of care and expected duration. Pain level reassessed. Patient is alert, oriented x 3, equal unlabored respirations, skin warm/dry/pink. awaiting CT scan result. 23:55 Reassessment: Patient appears in no apparent distress at this time. Patient and/or rv family updated on plan of care and expected duration. Pain level reassessed. Patient is alert, oriented x 3, equal unlabored respirations, skin warm/dry/pink. PATIENT IS AWAKE. COMFORTABLE LYING ON BED. Vital Signs: 19:45 BP 163 / 85; Pulse 66; Resp 20; Temp 97.8(O); Pulse Ox 100% on R/A; Weight 53.98 kg fc (R); Height 5 ft. 5 in. (165.10 cm) (R); Pain 10/10; 21:51 BP 142 / 75; Pulse 54; Pulse Ox 98% on R/A; rv 22:42 BP 118 / 59; Pulse 68; Pulse Ox 98% on R/A; rv 23:54 BP 139 / 72; Pulse 51; Pulse Ox 100% on R/A; rv 04/18 00:43 BP 153 / 64; rv 04/17 19:45 Body Mass Index 19.80 (53.98 kg, 165.10 cm) ED Course: 04/17 19:45 Arm band placed on Patient placed in an exam room, on a stretcher. 19:45 Patient has correct armband on for positive identification. Bed in low position. Call fc light in reach. Side rails up X2. Pulse ox on. NIBP on. 19:45 No provider procedures requiring assistance completed. 20:02 Patient arrived in ED. 20:02 out of town, doctor is Private Physician. 20:05 Triage completed. 20:15 Michael Lehman MD is Attending Physician. 21:45 CT Head Brain wo Cont In Process Unspecified. EDPR 23:32 Urine Microscopic Only Sent. rv 04/18 00:44 IV discontinued, bleeding controlled, No redness/swelling at site. Pressure dressing rv applied. Administered Medications: 04/17 22:54 Drug: NS 0.9% 1000 ml Route: IV; Rate: 1 bolus; Site: left antecubital; rv Outcome: 04/18 00:23 Discharge ordered by . 00:44 Discharged to home ambulatory. rv 00:44 Condition: stable 00:44 Discharge instructions given to patient, Instructed on discharge instructions, follow up and referral plans. 00:44 Patient left the ED. rv Addendum: 04/21/2018 09:55 Addendum: Culture Results: Positive urine culture. Phone call Attempt #1 left [email or web address] b Signatures: Dispatcher [employer] EDMS Cecilia Walters RN RN Shaneka Schwartz RN ARPAN Michael Lehman MD MD Goyo Box RN RN rv
--- NOTE | 2018-04-18 00:23 | EDPHYS ---
Physician Documentation [facility] Name: Marina Espino Age: 52 yrs Sex: Female : 1965 Arrival Date: 04/17/2018 Time: 20:02 Bed 30 Private MD: out of town, doctor ED Physician Michael Lehman HPI: 04/18 00:40 This 52 yrs old Female presents to ER via EMS with complaints of weakness. gs 00:40 The patient presents to the emergency department with weakness of the entire body, gs generalized weakness. Onset: The symptoms/episode began/occurred 1 week(s) ago. Associated signs and symptoms: Pertinent negatives: altered mental status, fever, headache. Severity of symptoms: At their worst the symptoms were mild in the emergency department the symptoms are unchanged. Current symptoms: Currently, the patient is not experiencing any symptoms. The patient has experienced similar episodes in the past, a few times. 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 - Social history:: Smoking status: Patient/guardian denies using tobacco. - Ebola Screening: : Patient negative for fever greater than or equal to 101.5 degrees Fahrenheit, and additional compatible Ebola Virus Disease symptoms Patient denies exposure to infectious person Patient denies travel to an Ebola-affected area in the 21 days before illness onset. ROS: 04/18 00:40 Constitutional: Negative for fever. gs Eyes: Positive for visual changes says needs to get new glasses. Cardiovascular: Negative for chest pain. Respiratory: Negative for shortness of breath. All other systems are negative. Exam: 00:40 Head/Face: Normocephalic, atraumatic. ENT: Nares patent. No nasal discharge, no gs septal abnormalities noted. Tympanic membranes are normal and external auditory canals are clear. Oropharynx with no redness, swelling, or masses, exudates, or evidence of obstruction, uvula midline. Mucous membranes moist. Neck: Trachea midline, no thyromegaly or masses palpated, and no cervical lymphadenopathy. Supple, full range of motion without nuchal rigidity, or vertebral point tenderness. No Meningismus. Chest/axilla: Normal chest wall appearance and motion. Nontender with no deformity. No lesions are appreciated. Cardiovascular: Regular rate and rhythm with a normal S1 and S2. No gallops, murmurs, or rubs. Normal PMI, no JVD. No pulse deficits. Respiratory: Lungs have equal breath sounds bilaterally, clear to auscultation and percussion. No rales, rhonchi or wheezes noted. No increased work of breathing, no retractions or nasal flaring. Abdomen/GI: Soft, non-tender, with normal bowel sounds. No distension or tympany. No guarding or rebound. No evidence of tenderness throughout. Back: No spinal tenderness. No costovertebral tenderness. Full range of motion. Skin: Warm, dry with normal turgor. Normal color with no rashes, no lesions, and no evidence of cellulitis. MS/ Extremity: Pulses equal, no cyanosis. Neurovascular intact. Full, normal range of motion. 00:40 Constitutional: The patient appears alert, awake. 00:40 Eyes: Pupils: irregularly shaped, cataract surgery. 00:40 Neuro: Exam negative for acute changes. 00:44 ECG was reviewed by the Attending Physician. Vital Signs: 04/17 19:45 BP 163 / 85; Pulse 66; Resp 20; Temp 97.8(O); Pulse Ox 100% on R/A; Weight 53.98 kg fc (R); Height 5 ft. 5 in. (165.10 cm) (R); Pain 10/10; 21:51 BP 142 / 75; Pulse 54; Pulse Ox 98% on R/A; rv 22:42 BP 118 / 59; Pulse 68; Pulse Ox 98% on R/A; rv 23:54 BP 139 / 72; Pulse 51; Pulse Ox 100% on R/A; rv 04/18 00:43 BP 153 / 64; rv 04/17 19:45 Body Mass Index 19.80 (53.98 kg, 165.10 cm) fc MDM: 04/17 20:24 Patient medically screened. 04/18 00:40 Data reviewed: vital signs, nurses notes. Response to treatment: the patient's symptoms gs have markedly improved after treatment. ED course: ddx cad, cva, dehydration. 04/17 20:27 Order name: Basic Metabolic Panel; Complete Time: 22:46 04/17 20:27 Order name: CBC with Diff; Complete Time: 22:46 04/17 20:27 Order name: Hepatic Function; Complete Time: 22:46 04/17 20:27 Order name: Lipase; Complete Time: :46 04/17 20:27 Order name: Urine Microscopic Only; Complete Time: 00:21 04/17 23:35 Order name: Urine Dipstick--Ancillary (enter results); Complete Time: 00:21 al 04/17 20:27 Order name: Urine Test (obtain specimen); Complete Time: 23:31 04/17 20:27 Order name: IV Saline Lock; Complete Time: 21:10 04/17 20:27 Order name: Labs collected and sent; Complete Time: 21:10 04/17 20:27 Order name: EKG; Complete Time: 20:27 04/17 20:27 Order name: CT Head Brain wo Cont; Complete Time: 22:46 04/17 23:35 Order name: Urine --Ancillary (enter results); Complete Time: 00:21 al 04/17 23:52 Order name: Urine Culture EDID 04/17 20:27 Order name: Urine Dipstick-Ancillary (obtain specimen); Complete Time: 23:31 04/17 20:27 Order name: EKG - Nurse/Tech; Complete Time: 21:17 gs EC:44 Rate is 58 beats/min. Rhythm is regular. AK interval is normal. QRS interval is normal. gs T waves are Flattened. Clinical impression: Abnormal EKG without significant change. Interpreted by me. Administered Medications: 04/17 22:54 Drug: NS 0.9% 1000 ml Route: IV; Rate: 1 bolus; Site: left antecubital; rv Disposition: 04/18/18 00:23 Discharged to Home. Impression: Weakness, Dehydration. - Condition is Stable. - Discharge Instructions: Weakness, Fatigue. - Medication Reconciliation Form, Thank You Letter, Antibiotic Education, Prescription Opioid Use form. - Follow up: Private Physician; When: 2 - 3 days; Reason: Re-evaluation by your physician. Signatures: Dispatcher [employer] EDCecilia Hernandez RN RN Michael Lehman MD MD Goyo Box RN RN rv Corrections: (The following items were deleted from the chart) 04/18 00:44 00:23 04/18/2018 00:23 Discharged to Home. Impression: Weakness; Dehydration. Condition rv is Stable. Forms are Medication Reconciliation Form, Thank You Letter, Antibiotic Education, Prescription Opioid Use. Follow up: Private Physician; When: 2 - 3 days; Reason: Re-evaluation by your physician. gs
--- NOTE | 2018-04-18 05:41 | EKG ---
Test Date: 2018-04-17 Test Time: 21:14:35 Manager Grant: MEASUREMENT RESULTS: Intervals: Rate: 58 [place]: 158 QRSD: 76 QT: 418 QTc: 410 [place]: P: 55 [place]: 158 QRS: 75 T: 85 INTERPRETIVE STATEMENTS: Sinus bradycardia Low voltage QRS Nonspecific ST abnormality Abnormal ECG No previous ECG available for comparison Electronically Signed On 04-18-18 05:40:12 CDT by Luis Barrera
== END 2018-04-18 00:44 | disposition home or self-care (01) ==
LOC: ER 19:46
DX: E86.0 Dehydration (principal); F41.9 Anxiety disorder, unspecified; E78.5 Hyperlipidemia, unspecified; F32.9 Major depressive disorder, single episode, unspecified; Z88.0 Allergy status to penicillin
CPT/HCPCS: 36415; 70450; 80048; 80076; 81025; 83690; 85025; 87086; 87088; 93005; J7030; 81003; 81015; 87077; 87186; 99284

== ENCOUNTER 2018-07-02 15:55 | Emergency (ER) | payer OTHER ==
[2018-07-02 17:09] LABS: Absolute Lymphocytes (CBC) 1.4 K/uL (0.7-4.9); Absolute Monocytes 0.3 K/uL (0.1-1.3); Absolute Neutrophil 5.4 K/uL (1.8-8.0); Basophils % 0.5 % (0-1.3); Eosinophils % 1.4 % (0-4.4); Hematocrit 40.1 % (36.0-45.0); Lymphocytes % 19.7 % (15.3-44.8); MCH 29.7 pg (27.0-35.0); MPV 8.6 fL (7.6-11.3); Monocytes % 4.6 % (3.3-12.3); RBC Red Blood Cell Count 4.61 M/uL (3.86-4.86)
--- NOTE | 2018-07-02 17:19 | RAD REPORT ---
EXAM DESCRIPTION: Rosa Blanton (2 Views)07/02/2018 4:43 pm CLINICAL HISTORY: Cough COMPARISON: September 2017 FINDINGS: The lungs appear clear of acute infiltrate. The heart is normal size IMPRESSION: No acute abnormalities displayed
[2018-07-02 17:27] LABS: Albumin 3.9 g/dL (3.4-5.0); Bilirubin Total 0.8 mg/dL (0.2-1.0); Potassium 3.8 mmol/L (3.5-5.1); Protein, Total 7.6 g/dL (6.4-8.2)
--- NOTE | 2018-07-02 19:01 | ER ---
Nurse's Notes [facility] Name: Marina Espino Age: 52 yrs Sex: Female : 1965 Arrival Date: 07/02/2018 Time: 15:58 Bed 13 Private MD: Diagnosis: Acute bronchitis;Acute pharyngitis Presentation: 07/02 15:58 Presenting complaint: Patient states: cough and not eating over the last 2 days. Pt aa5 denies pain. Pt states "I just don't feel hungry". Transition of care: patient was not received from another setting of care. Onset of symptoms was June 2018. Risk Assessment: Do you want to hurt yourself or someone else? Patient reports no desire to harm self or others. Initial Sepsis Screen: Does the patient meet any 2 criteria? No. Patient's initial sepsis screen is negative. Does the patient have a suspected source of infection? No. Patient's initial sepsis screen is negative. Care prior to arrival: None. 15:58 Method Of Arrival: EMS: [facility] aa5 15:58 Acuity: GERRI 3 aa5 Historical: - Allergies: 16:00 PENICILLINS; aa5 - PMHx: 16:00 Anxiety; Cerebral Palsy; Depression; Hyperlipidemia; aa5 - PSHx: 16:00 eye surg; aa5 - Immunization history:: Flu vaccine is not up to date. - Social history:: Smoking status: Patient/guardian denies using tobacco. - Ebola Screening: : No symptoms or risks identified at this time. Screenin:12 Abuse screen: no apparent signs noted. Nutritional screening: No deficits noted. em Tuberculosis screening: No symptoms or risk factors identified. Fall Risk Secondary diagnosis (15 points) impaired mobility, Ambulatory Aid- None/Bed Rest/Nurse Assist (0 pts). Gait- Impaired (20 pts.). Total Hamlin Fall Scale indicates Low Risk Score (25-44 pts). Fall prevention measures have been instituted. Side Rails Up X 2 Frequent Obs/Assesments occuring Family Present and informed to notify staff if they need to leave bedside. Assessment: 16:16 General: Appears in no apparent distress. comfortable, Behavior is calm, cooperative. em Pain: Denies pain. Neuro: Level of Consciousness is awake, alert, obeys commands, Oriented to person, place, time, situation. Cardiovascular: Denies chest pain, Heart tones S1 S2 present Capillary refill < 3 seconds Patient's skin is warm and dry. Respiratory: Reports cough that is productive, Airway is patent Respiratory effort is even, unlabored, Respiratory pattern is regular, symmetrical. GI: Abdomen is flat, non-distended, Bowel sounds present X 4 quads. Abd is soft and non tender X 4 quads. Reports decreased appetite Patient currently denies nausea, vomiting. : No signs and/or symptoms were reported regarding the genitourinary system. EENT: Oral mucosa is dry. Throat is clear is pink. Derm: Skin is intact. Musculoskeletal: Range of motion: limited in left hip, left knee, left ankle, right hip, right knee and right ankle. 16:16 Reassessment: I agree with assessment completed by Willie Min LVN. aa5 17:00 Reassessment: Patient appears in no apparent distress at this time. Patient and/or em family updated on plan of care and expected duration. Pain level reassessed. Patient is alert, oriented x 3, equal unlabored respirations, skin warm/dry/pink. Patient denies pain at this time. 18:03 Reassessment: Patient appears in no apparent distress at this time. Patient and/or em family updated on plan of care and expected duration. Pain level reassessed. Patient is alert, oriented x 3, equal unlabored respirations, skin warm/dry/pink. pending completion of liter NS bolus. Vital Signs: 16:00 BP 141 / 86; Pulse 96; Resp 16 S; Temp 98.9(O); Pulse Ox 99% on R/A; Weight 53.98 kg aa5 (R); Height 4 ft. 9 in. (144.78 cm) (R); Pain 0/10; 17:00 BP 154 / 94; Pulse 95; Resp 18; Pulse Ox 97% on R/A; Pain 0/10; em 17:54 BP 142 / 92; Pulse 86; Resp 19; Pulse Ox 98% on R/A; Pain 0/10; em 18:34 BP 164 / 89; Pulse 84; Resp 16; Pulse Ox 99% on R/A; em 16:00 Body Mass Index 25.75 (53.98 kg, 144.78 cm) aa5 ED Course: 15:58 Patient arrived in ED. aa5 15:59 Mickail, Dionte, PA is PHCP. [facility] 15:59 Michael Lehman MD is Attending Physician. [facility] 15:59 Triage completed. aa5 15:59 Arm band placed on. aa5 16:02 Willie Min LVN is Primary Nurse. em 16:12 Patient has correct armband on for positive identification. Placed in gown. Bed in low em position. Call light in reach. Side rails up X2. Adult w/ patient. 16:41 Chest Pa And Lat (2 Views) XRAY In Process Unspecified. EDMS 17:30 Urine collected: straight cath specimen, cloudy. Straight cath inserted, using sterile 5 technique, 16 Fr. Specimen obtained. 17:31 Initial lab(s) drawn, by wv, sent to lab. Flu and/or RSV swab sent to lab. Inserted [facility] saline lock: 22 gauge in right antecubital area, using aseptic technique. Blood collected. 17:31 Influenza Screen (a \\T\\ B) Sent. [facility] 18:59 changed diaper and gown . [facility] 19:32 No provider procedures requiring assistance completed. IV discontinued, intact, ao bleeding controlled, No redness/swelling at site. Pressure dressing applied. Administered Medications: 17:49 Drug: NS 0.9% 1000 ml Route: IV; Rate: 1 bolus; Site: right antecubital; em 19:00 Follow up: IV Status: Completed infusion; IV Intake: 1000ml em 19:28 Drug: Decadron - Dexamethasone 10 mg Route: IVP; Site: right antecubital; ao 19:31 Follow up: Response: Medication administered at discharge. ao Intake: 19:00 IV: 1000ml; Total: 1000ml. em Outcome: 19:00 Discharge ordered by . [facility] 19:32 Discharged to home via wheelchair. ao 19:32 Condition: stable 19:32 Discharge instructions given to patient, friend, Instructed on discharge instructions, follow up and referral plans. Demonstrated understanding of instructions, follow-up care, Prescriptions given X 1. 19:34 Patient left the ED. ao Signatures: Dispatcher [employer] EDAZ Dionte Bran PA PA [facility] Willie Min, NYA BURLAP SPREADER em Stephanie Warren RN ARPAN [facility] Domingo Saeed RN RN ao Martinez, Maria [facility] Corrections: (The following items were deleted from the chart) 17:38 16:16 GI: Abdomen is flat, Patient currently denies nausea, vomiting, em aa5
--- NOTE | 2018-07-02 19:01 | EDPHYS ---
Physician Documentation [facility] Name: Marina Espino Age: 52 yrs Sex: Female : 1965 Arrival Date: 07/02/2018 Time: 15:58 Bed 13 Private MD: ED Physician Michael Lehman HPI: 07/02 16:11 This 52 yrs old Female presents to ER via EMS with complaints of Cough, jmm Decreased Appetite. 16:11 The patient or guardian reports cough. Onset: The symptoms/episode began/occurred jmm gradually, 2 day(s) ago. Associated signs and symptoms: Pertinent positives: fever, sore throat. This is a 52 year old female with a history of cerebral palsy that presents to the ED with cough, congestion, sore throat beginning approx 2 days ago. States having a fever. . Historical: - Allergies: 16:00 PENICILLINS; aa5 - PMHx: 16:00 Anxiety; Cerebral Palsy; Depression; Hyperlipidemia; aa5 - PSHx: 16:00 eye surg; aa5 - Immunization history:: Flu vaccine is not up to date. - Social history:: Smoking status: Patient/guardian denies using tobacco. - Ebola Screening: : No symptoms or risks identified at this time. ROS: 16:11 Eyes: Negative for injury, pain, redness, and discharge. jmm 16:11 Cardiovascular: Negative for chest pain, palpitations, and edema, Abdomen/GI: Negative for abdominal pain, nausea, vomiting, diarrhea, and constipation. 16:11 MS/Extremity: Negative for injury and deformity, Skin: Negative for injury, rash, and discoloration, Neuro: Negative for headache, weakness, numbness, tingling, and seizure. 16:11 Constitutional: Positive for fever, malaise. 16:11 ENT: Positive for sinus congestion, sore throat. 16:11 Respiratory: Positive for cough. 16:11 All other systems are negative. Exam: 16:11 Head/Face: atraumatic. jmm 16:11 Chest/axilla: Normal chest wall appearance and motion. Cardiovascular: Regular rate and rhythm. No edema appreciated Respiratory: Normal respirations, no respiratory distress appreciated Abdomen/GI: Non distended, soft 16:11 Constitutional: The patient appears in no acute distress, alert, awake. 16:11 ENT: Posterior pharynx: erythema, that is mild. 16:11 Neck: ROM/movement: is normal. 16:11 Skin: Appearance: Color: normal in color. 16:11 Neuro: Orientation: is normal, Mentation: is normal, Memory: is normal. 16:11 Psych: Behavior/mood is pleasant, cooperative. Vital Signs: 16:00 BP 141 / 86; Pulse 96; Resp 16 S; Temp 98.9(O); Pulse Ox 99% on R/A; Weight 53.98 kg aa5 (R); Height 4 ft. 9 in. (144.78 cm) (R); Pain 0/10; 17:00 BP 154 / 94; Pulse 95; Resp 18; Pulse Ox 97% on R/A; Pain 0/10; em 17:54 BP 142 / 92; Pulse 86; Resp 19; Pulse Ox 98% on R/A; Pain 0/10; em 18:34 BP 164 / 89; Pulse 84; Resp 16; Pulse Ox 99% on R/A; em 16:00 Body Mass Index 25.75 (53.98 kg, 144.78 cm) aa5 MDM: 16:11 Patient medically screened. [place] 18:29 Data reviewed: vital signs, nurses notes. Counseling: I had a detailed discussion with [place] the patient and/or guardian regarding: the historical points, exam findings, and any diagnostic results supporting the discharge/admit diagnosis, lab results, radiology results, the need for outpatient follow up, to return to the emergency department if symptoms worsen or persist or if there are any questions or concerns that arise at home. 07/02 16:17 Order name: CBC with Diff; Complete Time: 17:17 [place] 07/02 16:17 Order name: CMP; Complete Time: 17:29 [place] 07/02 16:17 Order name: Influenza Screen (a \T\ B); Complete Time: 17:40 [place] 07/02 16:17 Order name: Chest Pa And Lat (2 Views) XRAY; Complete Time: 17:27 [place] 07/02 17:39 Order name: Urine Dipstick--Ancillary (enter results) 07/02 17:39 Order name: Urine --Ancillary (enter results) 07/02 16:17 Order name: Saline Lock; Complete Time: 17:03 [place] 07/02 16:17 Order name: Urine Dipstick-Ancillary (obtain specimen); Complete Time: 17:31 [place] Administered Medications: 17:49 Drug: NS 0.9% 1000 ml Route: IV; Rate: 1 bolus; Site: right antecubital; em 19:00 Follow up: IV Status: Completed infusion; IV Intake: 1000ml em 19:28 Drug: Decadron - Dexamethasone 10 mg Route: IVP; Site: right antecubital; ao 19:31 Follow up: Response: Medication administered at discharge. ao Disposition: 07/02/18 19:00 Discharged to Home. Impression: Acute bronchitis, Acute pharyngitis. - Condition is Stable. - Discharge Instructions: Acute Bronchitis, Adult, Pharyngitis. - Prescriptions for Zithromax Z- Raad 250 mg Oral Tablet - take 1 tablet by ORAL route as directed for 5 days Day 1 - take two (2) tablets one time. Day 2, 3, 4 , 5 take one (1) tablet once daily.; 6 tablet. - Medication Reconciliation Form, Thank You Letter, Antibiotic Education, Prescription Opioid Use form. - Follow up: Private Physician; When: 2 - 3 days; Reason: Recheck today's complaints, Continuance of care, Re-evaluation by your physician. Addendum: 07/04/2018 15:35 Co-signature as Attending Physician, Michael Lehman MD. g s Signatures: Dispatcher [employer] EDDionte Scott PA PA Willie Perry, BUS MONITOR BUS MONITOR Stephanie Casas RN RN aa5 Domingo Saeed RN RN ao Starr, Gregory, MD MD Corrections: (The following items were deleted from the chart) 07/02 19:34 19:00 07/02/2018 19:00 Discharged to Home. Impression: Acute bronchitis; Acute ao pharyngitis. Condition is Stable. Forms are Medication Reconciliation Form, Thank You Letter, Antibiotic Education, Prescription Opioid Use. Follow up: Private Physician; When: 2 - 3 days; Reason: Recheck today's complaints, Continuance of care, Re-evaluation by your physician. vanessa
[2018-07-02] MEDS ORDERED: DEXAMETHASONE 4 MG/ML VIAL ONE (19:22)
[2018-07-02 20:58] LABS: Urine Blood 3+ (NEG); Urine Glucose NEGATIVE (NEG); Urine Protein 1+ (NEG); Urine pH 5.5 (5.0-7.0)
== END 2018-07-02 19:34 | disposition home or self-care (01) ==
LOC: ER 15:55
DX: J20.9 Acute bronchitis, unspecified (principal); J02.9 Acute pharyngitis, unspecified; Z88.0 Allergy status to penicillin
CPT/HCPCS: 36415; 51702; 71046; 80053; 81003; 81025; 85025; 87804; 96361; 96374; 99284

== ENCOUNTER 2018-11-30 19:09 | Emergency (ER) | payer OTHER ==
--- NOTE | 2018-11-30 20:25 | RAD REPORT ---
EXAM DESCRIPTION: RAD - Shoulder Left 2 View - 11/30/2018 8:16 pm CLINICAL HISTORY: Left shoulder pain FINDINGS: No fracture or dislocation is seen.
--- NOTE | 2018-11-30 20:28 | RAD REPORT ---
EXAM DESCRIPTION: RAD - Foot Right 3 View - 11/30/2018 8:16 pm CLINICAL HISTORY: Right foot pain status post injury FINDINGS: No fracture or dislocation is seen Osteoporosis. Pes planus deformity
--- NOTE | 2018-11-30 21:17 | ER ---
Nurse's Notes [facility] Name: Marina Espino Age: 53 yrs Sex: Female : 1965 Arrival Date: 11/30/2018 Time: 19:12 Bed 4 Private MD: Diagnosis: Contusion of left shoulder Presentation: 11/30 19:14 Presenting complaint: Patient states: she was trying to transfer from her bed to her aa1 wheelchair and fell onto the floor. Denies hitting head or LOC. C/O L shoulder pain and pain to R foot/ankle. No obvious injury noted. Transition of care: patient was not received from another setting of care. Onset of symptoms was November 30, 2018. Risk Assessment: Do you want to hurt yourself or someone else? Patient reports no desire to harm self or others. Initial Sepsis Screen: Does the patient meet any 2 criteria? No. Patient's initial sepsis screen is negative. Does the patient have a suspected source of infection? No. Patient's initial sepsis screen is negative. Care prior to arrival: None. 19:14 Method Of Arrival: EMS: [facility] aa1 19:14 Acuity: GERRI 4 aa1 Triage Assessment: 19:15 General: Appears in no apparent distress. comfortable, Behavior is calm, cooperative, aa1 appropriate for age. Historical: - Allergies: 19:15 PENICILLINS; aa1 - Home Meds: 19:15 Ambien 10 mg Oral tab 1 tab nightly [Active]; clorazepate dipotassium 7.5 mg Oral tab 1 aa1 tab qhs p rn [Active]; paroxetine HCl 12.5 mg Oral Tb24 1 tab once daily [Active]; pravastatin 20 mg Oral tab 1 tab nightly [Active]; 19:20 paroxetine HCl 25 mg Oral Tb24 2 tabs nightly [Active]; cc3 - PMHx: 19:15 Anxiety; Cerebral Palsy; Depression; Hyperlipidemia; aa1 - PSHx: 19:15 eye surg; aa1 - Immunization history:: Flu vaccine is not up to date. - Social history:: Smoking status: Patient/guardian denies using tobacco. - Ebola Screening: : No symptoms or risks identified at this time. Screenin:20 Abuse screen: Denies threats or abuse. Denies injuries from another. Nutritional cc3 screening: No deficits noted. Tuberculosis screening: No symptoms or risk factors identified. Fall Risk Ambulatory Aid- Crutches/Cane/Walker (15 pts). Gait- Impaired (20 pts.). Mental Status- Oriented to own ability (0 pts). 19:51 Abuse screen: Denies threats or abuse. Nutritional screening: No deficits noted. jd3 Tuberculosis screening: No symptoms or risk factors identified. Fall Risk Fall in past 12 months (25 points). Ambulatory Aid- None/Bed Rest/Nurse Assist (0 pts). Gait- Impaired (20 pts.). Mental Status- Oriented to own ability (0 pts). Total Hamlin Fall Scale indicates Low Risk Score (25-44 pts). Fall prevention measures have been instituted. Side Rails Up X 2 Placed close to Nursing Station Frequent Obs/Assesments occuring Family Present and informed to notify staff if they need to leave bedside. Assessment: 19:49 General: Appears in no apparent distress. uncomfortable, Behavior is calm, cooperative, jd3 appropriate for age. Pain: Complains of pain in left shoulder Quality of pain is described as aching. Neuro: Level of Consciousness is awake, alert, obeys commands, Oriented to person, place, time, situation, Appropriate for age Speech. Cardiovascular: Heart tones present Capillary refill < 3 seconds Patient's skin is warm and dry. Respiratory: Airway is patent Respiratory effort is even, unlabored, Respiratory pattern is regular, symmetrical, Breath sounds are clear bilaterally. GI: No signs and/or symptoms were reported involving the gastrointestinal system. : No signs and/or symptoms were reported regarding the genitourinary system. EENT: No signs and/or symptoms were reported regarding the EENT system. Derm: Skin is intact, Skin is dry, Skin is normal, Skin temperature is warm. Musculoskeletal: Range of motion: limited range of motion due to chronic condition. 20:25 Reassessment: Patient appears in no apparent distress at this time. Patient and/or cc3 family updated on plan of care and expected duration. Pain level reassessed. Patient is alert, oriented x 3, equal unlabored respirations, skin warm/dry/pink. 21:25 Reassessment: Patient appears in no apparent distress at this time. Patient and/or cc3 family updated on plan of care and expected duration. Pain level reassessed. Patient is alert, oriented x 3, equal unlabored respirations, skin warm/dry/pink. Dr. Lehman discharged the patient home, no prescription given. No IV cannula in situ. Patient left ER vitally stable by wheelchair escorted by her friend. Vital Signs: 19:15 BP 146 / 86; Pulse 79; Resp 18; Temp 98.8; Pulse Ox 100% on R/A; Weight 49.44 kg (R); aa1 Pain 4/10; 20:18 BP 169 / 92; Pulse 64; Resp 16; Pulse Ox 99% on R/A; mt 21:12 BP 153 / 87; Pulse 66; Resp 18 S; Pulse Ox 99% on R/A; cc3 ED Course: 19:12 Patient arrived in ED. aa1 19:14 Michael Lehman MD is Attending Physician. 19:15 Triage completed. aa1 19:15 Arm band placed on left wrist. Patient placed in an exam room, on a stretcher. aa1 19:20 Patient has correct armband on for positive identification. Placed in gown. Bed in low cc3 position. Call light in reach. Side rails up X2. Pulse ox on. NIBP on. 19:33 Mary Caballero is Primary Nurse. cc3 19:52 Patient has correct armband on for positive identification. Placed in gown. Bed in low jd3 position. Call light in reach. Side rails up X2. Adult w/ patient. 20:16 Shoulder Left (2 View) XRAY In Process Unspecified. EDMS 20:16 Foot Right 3 View XRAY In Process Unspecified. EDMS 21:25 No provider procedures requiring assistance completed. Patient did not have IV access cc3 during this emergency room visit. Administered Medications: No medications were administered Outcome: 21:16 Discharge ordered by . 21:25 Discharged to home via wheelchair, with friend. cc3 21:25 Condition: stable 21:25 Discharge instructions given to patient, Instructed on discharge instructions, follow up and referral plans. Demonstrated understanding of instructions, follow-up care. 21:33 Patient left the ED. cc3 Signatures: Dispatcher [employer] EDMS Brianna Barrett RN RN aa1 Nan Segura nc Michael Lehman MD MD Brad Null RN RN jd3 Mary Caballero cc3
--- NOTE | 2018-11-30 21:17 | EDPHYS ---
Physician Documentation [facility] Name: Marina Espino Age: 53 yrs Sex: Female : 1965 Arrival Date: 11/30/2018 Time: 19:12 Bed 4 Private MD: ED Physician Michael Lehman HPI: 12/01 02:42 This 53 yrs old Female presents to ER via EMS with complaints of Fall Injury. gs 02:42 Details of fall: The patient fell from an upright position. Onset: The symptoms/episode gs began/occurred yesterday. Severity of symptoms: At their worst the symptoms were moderate, in the emergency department the symptoms are unchanged. 02:46 Associated injuries: The patient sustained anterior aspect of left shoulder, right gs foot. The patient has experienced similar episodes in the past, several times. Historical: - Allergies: 11/30 19:15 PENICILLINS; aa1 - Home Meds: 19:15 Ambien 10 mg Oral tab 1 tab nightly [Active]; clorazepate dipotassium 7.5 mg Oral tab 1 aa1 tab qhs p rn [Active]; paroxetine HCl 12.5 mg Oral Tb24 1 tab once daily [Active]; pravastatin 20 mg Oral tab 1 tab nightly [Active]; 19:20 paroxetine HCl 25 mg Oral Tb24 2 tabs nightly [Active]; cc3 - PMHx: 19:15 Anxiety; Cerebral Palsy; Depression; Hyperlipidemia; aa1 - PSHx: 19:15 eye surg; aa1 - Immunization history:: Flu vaccine is not up to date. - Social history:: Smoking status: Patient/guardian denies using tobacco. - Ebola Screening: : No symptoms or risks identified at this time. ROS: 12/01 02:46 All other systems are negative. gs Exam: 02:46 Eyes: Pupils equal round and reactive to light, extra-ocular motions intact. Lids and gs lashes normal. Conjunctiva and sclera are non-icteric and not injected. Cornea within normal limits. Periorbital areas with no swelling, redness, or edema. ENT: Nares patent. No nasal discharge, no septal abnormalities noted. Tympanic membranes are normal and external auditory canals are clear. Oropharynx with no redness, swelling, or masses, exudates, or evidence of obstruction, uvula midline. Mucous membranes moist. Neck: Trachea midline, no thyromegaly or masses palpated, and no cervical lymphadenopathy. Supple, full range of motion without nuchal rigidity, or vertebral point tenderness. No Meningismus. Chest/axilla: Normal chest wall appearance and motion. Nontender with no deformity. No lesions are appreciated. Cardiovascular: Regular rate and rhythm with a normal S1 and S2. No gallops, murmurs, or rubs. Normal PMI, no JVD. No pulse deficits. Respiratory: Lungs have equal breath sounds bilaterally, clear to auscultation and percussion. No rales, rhonchi or wheezes noted. No increased work of breathing, no retractions or nasal flaring. Abdomen/GI: Soft, non-tender, with normal bowel sounds. No distension or tympany. No guarding or rebound. No evidence of tenderness throughout. Back: No spinal tenderness. No costovertebral tenderness. Full range of motion. Neuro: Awake and alert, GCS 15, oriented to person, place, time, and situation. Cranial nerves II-XII grossly intact. Motor strength 5/5 in all extremities. Sensory grossly intact. Cerebellar exam normal. Normal gait. 02:46 Constitutional: The patient appears alert, awake. 02:46 Musculoskeletal/extremity: Extremities: noted in the right foot: pain, Circulation is intact in all extremities. Joints: the left shoulder and anterior aspect of left shoulder displays tenderness. Vital Signs: 11/30 19:15 BP 146 / 86; Pulse 79; Resp 18; Temp 98.8; Pulse Ox 100% on R/A; Weight 49.44 kg (R); aa1 Pain 4/10; 20:18 BP 169 / 92; Pulse 64; Resp 16; Pulse Ox 99% on R/A; mt 21:12 BP 153 / 87; Pulse 66; Resp 18 S; Pulse Ox 99% on R/A; cc3 MDM: 19:23 Patient medically screened. 12/01 02:42 Data reviewed: vital signs, nurses notes, lab test result(s), radiologic studies. 02:46 Differential diagnosis: contusion, fracture, sprain, strain. Response to treatment: the patient's symptoms have mildly improved after treatment, and as a result, I will discharge patient. 11/30 19:24 Order name: Shoulder Left (2 View) XRAY; Complete Time: 21:14 11/30 19:24 Order name: Foot Right 3 View XRAY; Complete Time: 21:14 Administered Medications: No medications were administered Disposition: 11/30/18 21:16 Discharged to Home. Impression: Contusion of left shoulder. - Condition is Stable. - Discharge Instructions: Contusion. - Medication Reconciliation Form, Thank You Letter, Antibiotic Education, Prescription Opioid Use form. - Follow up: Private Physician; When: 1 - 2 days; Reason: Re-evaluation by your physician. Signatures: Dispatcher [employer] Brianna Franco RN RN aa1 Michael Lehman MD MD Mary Caballero cc3 Corrections: (The following items were deleted from the chart) 11/30 21:33 21:16 11/30/2018 21:16 Discharged to Home. Impression: Contusion of left shoulder. cc3 Condition is Stable. Forms are Medication Reconciliation Form, Thank You Letter, Antibiotic Education, Prescription Opioid Use. Follow up: Private Physician; When: 1 - 2 days; Reason: Re-evaluation by your physician. 12/01 02:47 02:42 Associated injuries: The patient sustained left leg, [facility] 02:47 02:42 The patient has experienced similar episodes in the past, a few times, [facility] 02:47 02:42 The patient has been recently seen by a physician: RECENT PELVIC FRACTURE LAST MONTH gs 02:47 02:42 Constitutional: Negative for fever, gs 02:47 02:42 All other systems are negative, [facility] 02:48 02:42 Constitutional: The patient appears alert, awake, [facility] 02:48 02:42 Head/Face: Normocephalic, atraumatic. Eyes: Pupils equal round and reactive to light, extra-ocular motions intact. Lids and lashes normal. Conjunctiva and sclera are non-icteric and not injected. Cornea within normal limits. Periorbital areas with no swelling, redness, or edema. ENT: Nares patent. No nasal discharge, no septal abnormalities noted. Tympanic membranes are normal and external auditory canals are clear. Oropharynx with no redness, swelling, or masses, exudates, or evidence of obstruction, uvula midline. Mucous membranes moist. Neck: Trachea midline, no thyromegaly or masses palpated, and no cervical lymphadenopathy. Supple, full range of motion without nuchal rigidity, or vertebral point tenderness. No Meningismus. Chest/axilla: Normal chest wall appearance and motion. Nontender with no deformity. No lesions are appreciated. Cardiovascular: Regular rate and rhythm with a normal S1 and S2. No gallops, murmurs, or rubs. Normal PMI, no JVD. No pulse deficits. Respiratory: Lungs have equal breath sounds bilaterally, clear to auscultation and percussion. No rales, rhonchi or wheezes noted. No increased work of breathing, no retractions or nasal flaring. Abdomen/GI: Soft, non-tender, with normal bowel sounds. No distension or tympany. No guarding or rebound. No evidence of tenderness throughout. Back: No spinal tenderness. No costovertebral tenderness. Full range of motion. Skin: Warm, dry with normal turgor. Normal color with no rashes, no lesions, and no evidence of cellulitis. Neuro: Awake and alert, GCS 15, oriented to person, place, time, and situation. Cranial nerves II-XII grossly intact. Motor strength 5/5 in all extremities. Sensory grossly intact. Cerebellar exam normal. Normal gait. gs 02:48 02:42 Musculoskeletal/extremity: Extremities: noted in the left wilson: ecchymosis, gs tenderness, Perfusion: the patient is normally perfused throughout, Joints: the left hip and right hip displays tenderness, gs
== END 2018-11-30 21:33 | disposition home or self-care (01) ==
LOC: ER 19:09
DX: S40.012A Contusion of left shoulder, initial encounter (principal); W19.XXXA Unspecified fall, initial encounter; Y93.9 Activity, unspecified; Y92.9 Unspecified place or not applicable; Z88.0 Allergy status to penicillin; F32.9 Major depressive disorder, single episode, unspecified; F41.9 Anxiety disorder, unspecified; E78.5 Hyperlipidemia, unspecified
CPT/HCPCS: 99283

== ENCOUNTER 2018-12-07 19:09 | Observation (INO) | payer OTHER ==
[2018-12-07] MEDS ORDERED: NA CHLORIDE 0.9% 1,000 ML ONE (19:54)
[2018-12-07 20:11] LABS: Absolute Monocytes 0.3 K/uL (0.1-1.3); Absolute Neutrophil 3.5 K/uL (1.8-8.0); Basophils % 0.7 % (0-1.3); Hematocrit 39.4 % (36.0-45.0); Lymphocytes % 33.9 % (15.3-44.8); Monocytes % 4.8 % (3.3-12.3); RBC Red Blood Cell Count 4.52 M/uL (3.86-4.86)
[2018-12-07 20:27] LABS: ALT/SGPT 17 U/L (12-78); AST/SGOT 14 U/L (15-37); Albumin 3.8 g/dL (3.4-5.0); Alkaline Phosphatase 129 U/L (45-117); BUN Blood Urea Nitrogen 16 mg/dL (7-18); Bicarbonate 31 mmol/L (21-32); Bilirubin Direct < 0.1 mg/dL (0-0.2); Bilirubin Total 0.3 mg/dL (0.2-1.0); Glucose Level 92 mg/dL (74-106); Lipase 52 U/L (73-393); Potassium 4.2 mmol/L (3.5-5.1); Sodium Level 143 mmol/L (136-145)
[2018-12-07 21:34] LABS: Urine Blood 1+ (NEG); Urine Glucose NEGATIVE (NEG)
[2018-12-07 21:35] LABS: Urine Protein NEGATIVE (NEG); Urine pH 8.5 (5.0-7.0)
[2018-12-07 22:18] LABS: Urine Bacteria >50 /HPF (<20); Urine RBC NONE SEEN /HPF (NONE SEEN)
[2018-12-07 22:19] LABS: Urine Culture Reflex Order REFLEXED
--- NOTE | 2018-12-08 01:01 | ER ---
Nurse's Notes [facility] Name: Marina Espino Age: 53 yrs Sex: Female : 1965 Arrival Date: 12/07/2018 Time: 19:20 Bed 16 Private MD: Diagnosis: Fecal impaction Presentation: 12/07 19:30 Presenting complaint: EMS states: patient complaints of right upper quadrant abdominal rr5 pain and constipation. history of fall 1 week ago. swelling and rigid at right upper quadrant when palpated. Transition of care: patient was not received from another setting of care. Onset of symptoms was December 07, 2018. Risk Assessment: Do you want to hurt yourself or someone else? Patient reports no desire to harm self or others. Initial Sepsis Screen: Does the patient meet any 2 criteria? No. Patient's initial sepsis screen is negative. Does the patient have a suspected source of infection? No. Patient's initial sepsis screen is negative. Note patient had a cerebral palsy and depression. last bowel movement 1 week ago. vitals by EMS 160/110 HR 84bpm, O2sat 100%. Note history of fall 1 week ago brought here and discharge as per EMS. Care prior to arrival: None. 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 - Social history:: Smoking status: Patient/guardian denies using tobacco, Patient/guardian denies using alcohol, street drugs. - Ebola Screening: : Patient negative for fever greater than or equal to 101.5 degrees Fahrenheit, and additional compatible Ebola Virus Disease symptoms Patient denies exposure to infectious person Patient denies travel to an Ebola-affected area in the 21 days before illness onset. Screenin:00 Abuse screen: Denies threats or abuse. Denies injuries from another. Nutritional rr5 screening: No deficits noted. Tuberculosis screening: No symptoms or risk factors identified. Fall Risk IV access (20 points). Ambulatory Aid- Crutches/Cane/Walker (15 pts). Gait- Impaired (20 pts.). Mental Status- Oriented to own ability (0 pts). Total Hamlin Fall Scale indicates High Risk Score (45 or more points). Fall prevention measures have been instituted. Side Rails Up X 2 Placed Close to Nursing Station Frequent Obs/Assessments Occuring Family Present and informed to notify staff if the need to leave the bedside As available patient and family educated on Fall Prevention Program and Strategies. Assessment: 19:30 General: Appears in no apparent distress. uncomfortable, Behavior is calm, cooperative, rr5 appropriate for age. 19:30 Pain: Complains of pain in right upper quadrant Pain radiates to back Pain currently is rr5 5 out of 10 on a pain scale. Quality of pain is described as aching, Pain began gradually, Is intermittent. Neuro: Level of Consciousness is awake, alert, obeys commands, Oriented to person, place, time, situation, Appropriate for age Reports I have cerebral palsy. Cardiovascular: Capillary refill < 3 seconds Patient's skin is warm and dry. Respiratory: Airway is patent Respiratory effort is even, unlabored, Respiratory pattern is regular, symmetrical. GI: Abdomen is round Bowel sounds present X 4 quads. Abdomen is tender to palpation in right upper quadrant Abd is rigid in right upper quadrant Reports constipation. : No signs and/or symptoms were reported regarding the genitourinary system. EENT: No signs and/or symptoms were reported regarding the EENT system. Derm: Skin is intact, Skin temperature is warm. Musculoskeletal: Capillary refill < 3 seconds, Range of motion: limited in upper and lower extremities. 19:30 Derm: redness at heel area noted. rr5 20:10 Reassessment: oral contrast consumed. CT staff informed. rr5 21:00 Reassessment: Patient appears in no apparent distress at this time. Patient is alert, rr5 oriented x 3, equal unlabored respirations, skin warm/dry/pink. Patient states feeling better. Patient states symptoms have improved. 22:05 Reassessment: back from CT scan. no complaints made. rr5 23:00 Reassessment: impacted stool reviewed by the ED provider for soap carlitos enema ordered. rr5 12/08 00:00 Reassessment: Patient appears in no apparent distress at this time. Patient is alert, rr5 oriented x 3, equal unlabored respirations, skin warm/dry/pink. soap Carlitos enema done. patient tolerated well. pako care and linen changed. 00:15 Reassessment: stool small in amount removed and cleaned. rr5 00:55 Reassessment: manual extraction tried by Kristina DOUGHERTY. negative for output. rr5 01:25 Reassessment: rita from [facility] spoke Harish phone and said they rr5 will call us back to do doctor to doctor endorsement. 02:35 Reassessment: Patient appears in no apparent distress at this time. Patient is alert, rr5 oriented x 3, equal unlabored respirations, skin warm/dry/pink. no complaints made. agreed for admission. Patient states symptoms have improved. Vital Signs: 12/07 19:30 BP 156 / 55; Pulse 82; Resp 18; Temp 98; Pulse Ox 98% ; Weight 49.44 kg; Height 4 ft. 9 rr5 in. (144.78 cm); Pain 5/10; 20:30 BP 141 / 70; Pulse 80; Resp 17; Pulse Ox 100% ; rr5 21:00 BP 135 / 90; Pulse 76; Resp 17; Pulse Ox 99% ; rr5 22:00 BP 121 / 73; Pulse 76; Resp 17; Pulse Ox 98% ; rr5 23:00 BP 118 / 70; Pulse 70; Resp 17; Pulse Ox 98% ; rr5 12/08 00:00 BP 116 / 76; Pulse 79; Resp 16; Pulse Ox 99% ; rr5 01:00 BP 119 / 63; Pulse 73; Resp 18; Pulse Ox 98% ; rr5 02:15 BP 112 / 67; Pulse 65; Resp 17; Temp 98.1; Pulse Ox 100% ; rr5 12/07 19:30 Body Mass Index 23.59 (49.44 kg, 144.78 cm) rr5 ED Course: 12/07 19:20 Patient arrived in ED. rr5 19:20 Clint Rock, ARPAN is Primary Nurse. rr5 19:23 Arturo Acevedo PA is PHCP. cp 19:23 Brad Okeefe MD is Attending Physician. cp 19:30 Arm band placed on. rr5 19:35 Patient has correct armband on for positive identification. Placed in gown. Bed in low rr5 position. Call light in reach. Side rails up X2. Pulse ox on. NIBP on. 19:37 Triage completed. rr5 19:55 Inserted saline lock: 20 gauge in left antecubital area, using aseptic technique. Blood rr5 collected. 22:05 CT Abd/Pelvis - W/Contrast: give oral contrast In Process Unspecified. EDMS 12/08 00:42 Served as a granite polisher during rectal exam. ed1 01:00 Carlos Diaz MD is Hospitalizing Provider. cp 02:30 Patient admitted, IV remains in place. intact, No redness/swelling at site. rr5 Administered Medications: 12/07 19:58 Drug: NS 0.9% 500 ml Route: IV; Rate: bolus; Site: left antecubital; rr5 21:00 Follow up: Response: No adverse reaction; IV Status: Completed infusion; IV Intake: rr5 500ml 21:00 Drug: NS 0.9% 500 ml Route: IV; Rate: 250 ml/hr; Site: left antecubital; rr5 23:05 Follow up: Response: No adverse reaction; IV Status: Completed infusion; IV Intake: rr5 500ml Intake: 21:00 IV: 500ml; Total: 500ml. rr5 23:05 IV: 500ml; Total: 1000ml. rr5 12/08 00:40 voided freely diaper changed done rr5 02:05 voided freely diaper changed done rr5 Output: 12/07 20:30 Urine: 300ml (Voided); Total: 300ml. rr5 22:28 Urine: 500ml (Voided); Total: 800ml. rr5 12/08 00:40 voided freely diaper changed done rr5 02:05 voided freely diaper changed done rr5 Outcome: 01:01 Decision to Hospitalize by Provider. cp 02:29 Admitted to Med/surg accompanied by tech, via stretcher, room 216, with chart, Report rr5 called to : Condition: stable 02:29 Instructed on the need for admit. 02:57 Patient left the ED. rr5 Signatures: Dispatcher [employer] Nora Velasquez, RN RN ed1 Arturo Acevedo PA PA cp Roque, Raymond, RN RN rr5
--- NOTE | 2018-12-08 01:01 | EDPHYS ---
Physician Documentation [facility] Name: Marina Espino Age: 53 yrs Sex: Female : 1965 Arrival Date: 12/07/2018 Time: 19:20 Bed 16 Private MD: ED Physician Brad Okeefe HPI: 12/07 19:50 This 53 yrs old Female presents to ER via EMS with complaints of Abdominal cp Pain, Constipation. 19:50 The patient presents with abdominal pain that is diffuse, constipation. Onset: The cp symptoms/episode began/occurred gradually, and became worse today. Associated signs and symptoms: Pertinent positives: nausea, Pertinent negatives: blood in stools, chest pain, diarrhea, dysuria, fever, vomiting. The symptoms are described as achy. Severity of pain: in the emergency department the pain is unchanged despite home interventions. Family reports patient has not had bowel movement for over 1 week. 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 - Social history:: Smoking status: Patient/guardian denies using tobacco, Patient/guardian denies using alcohol, street drugs. - Ebola Screening: : Patient negative for fever greater than or equal to 101.5 degrees Fahrenheit, and additional compatible Ebola Virus Disease symptoms Patient denies exposure to infectious person Patient denies travel to an Ebola-affected area in the 21 days before illness onset. ROS: 20:00 Constitutional: Negative for body aches, chills, fever, poor PO intake. cp 20:00 Eyes: Negative for injury, pain, redness, and discharge. cp 20:00 Cardiovascular: Negative for chest pain, edema. 20:00 Respiratory: Negative for cough, shortness of breath, wheezing. 20:00 Abdomen/GI: Positive for abdominal pain, nausea, constipation, Negative for vomiting, diarrhea, black/tarry stool, rectal bleeding. 20:00 Back: Negative for radiated pain. 20:00 : Negative for urinary symptoms. 20:00 Neuro: Negative for altered mental status. 20:00 All other systems are negative. Exam: 20:10 Constitutional: The patient appears in no acute distress, alert, awake, non-toxic, well cp developed, uncomfortable. 20:10 Head/Face: Normocephalic, atraumatic. cp 20:10 Eyes: Periorbital structures: appear normal, Conjunctiva: normal, no exudate, no injection, Sclera: no appreciated abnormality, Lids and lashes: appear normal, bilaterally. 20:10 ENT: External ear(s): are unremarkable, Nose: is normal, Mouth: Lips: moist, Oral mucosa: moist, Posterior pharynx: Airway: no evidence of obstruction, patent. 20:10 Chest/axilla: Inspection: normal, Palpation: is normal, no crepitus, no tenderness. 20:10 Cardiovascular: Rate: normal, Rhythm: regular, Edema: is not appreciated, JVD: is not appreciated. 20:10 Respiratory: the patient does not display signs of respiratory distress, Respirations: normal, no use of accessory muscles, no retractions, no splinting, no tachypnea, Breath sounds: are clear throughout, no decreased breath sounds, no stridor, no wheezing. 20:10 Abdomen/GI: Inspection: abdomen appears normal, Bowel sounds: active, all quadrants, Palpation: soft, in all quadrants, moderate abdominal tenderness, in the right upper quadrant and left upper quadrant, rebound tenderness, is not appreciated, involuntary guarding, is not appreciated. 20:10 Back: pain, is absent. 20:10 Musculoskeletal/extremity: Extremities: the patient is contracted, diffusely. 20:10 Skin: cellulitis, is not appreciated, no rash present. 20:10 Neuro: Orientation: no acute changes, Mentation: no acute changes. Vital Signs: 19:30 BP 156 / 55; Pulse 82; Resp 18; Temp 98; Pulse Ox 98% ; Weight 49.44 kg; Height 4 ft. 9 rr5 in. (144.78 cm); Pain 5/10; 20:30 BP 141 / 70; Pulse 80; Resp 17; Pulse Ox 100% ; rr5 21:00 BP 135 / 90; Pulse 76; Resp 17; Pulse Ox 99% ; rr5 22:00 BP 121 / 73; Pulse 76; Resp 17; Pulse Ox 98% ; rr5 23:00 BP 118 / 70; Pulse 70; Resp 17; Pulse Ox 98% ; rr5 04 00:00 BP 116 / 76; Pulse 79; Resp 16; Pulse Ox 99% ; rr5 01:00 BP 119 / 63; Pulse 73; Resp 18; Pulse Ox 98% ; rr5 02:15 BP 112 / 67; Pulse 65; Resp 17; Temp 98.1; Pulse Ox 100% ; rr5 0403 19:30 Body Mass Index 23.59 (49.44 kg, 144.78 cm) rr5 MDM: 12/07 19:23 Patient medically screened. cp 12/08 00:00 Data reviewed: vital signs, nurses notes, lab test result(s), radiologic studies, CT cp scan. 00:59 Physician consultation: Carlos Diaz MD was contacted at 00:59, regarding admission, cp to the medical/surgical unit. patient's condition. 12/07 19:39 Order name: Basic Metabolic Panel; Complete Time: 21:06 cp / 21:06 Interpretation: Normal except: CL 108; GFR 55. cp 12/07 19:39 Order name: CBC with Diff; Complete Time: 21:06 cp 12/07 19:39 Order name: Creatinine for Radiology; Complete Time: 21:06 cp 12/07 19:39 Order name: Hepatic Function; Complete Time: 21:06 cp 12/07 19:39 Order name: Lipase; Complete Time: 21:06 cp 12/07 19:41 Order name: Urine Microscopic Only; Complete Time: 22:36 cp 12/07 22:36 Interpretation: Normal except: UBACT >50; SQEPI 10-20; BUD PRESENT. cp 12/07 19:39 Order name: IV Saline Lock; Complete Time: 19:59 cp 12/07 19:39 Order name: Labs collected and sent; Complete Time: 19:59 cp 12/07 19:41 Order name: CT Abd/Pelvis - W/Contrast: give oral contrast cp 12/07 21:17 Order name: Urine Dipstick--Ancillary (enter results); Complete Time: 22:11 ar5 12/07 22:11 Interpretation: Normal except: UBLD 1+; UPH 8.5; UESTR TRACE. 12/07 21:17 Order name: Urine --Ancillary (enter results); Complete Time: 22:11 ar5 12/07 22:20 Order name: Urine Culture [facility] 12/07 19:41 Order name: Urine Dipstick-Ancillary (obtain specimen); Complete Time: 22:09 12/07 19:41 Order name: Urine Test (obtain specimen); Complete Time: 22:09 12/07 23:03 Order name: Misc. Order: Soap suds enema; Complete Time: 01:15 ed1 Administered Medications: 12/07 19:58 Drug: NS 0.9% 500 ml Route: IV; Rate: bolus; Site: left antecubital; rr5 21:00 Follow up: Response: No adverse reaction; IV Status: Completed infusion; IV Intake: rr5 500ml 21:00 Drug: NS 0.9% 500 ml Route: IV; Rate: 250 ml/hr; Site: left antecubital; rr5 23:05 Follow up: Response: No adverse reaction; IV Status: Completed infusion; IV Intake: rr5 500ml Disposition: 12/08/18 01:01 Hospitalization ordered by Carlos Diaz for Observation. Preliminary diagnosis is Fecal impaction. - Bed requested for Telemetry/MedSurg (observation). - Status is Observation. rr5 - Condition is Stable. - Problem is new. - Symptoms are unchanged. UTI on Admission? No Addendum: 12/09/2018 11:42 Co-signature as Attending Physician, Brad Okeefe MD I agree with the assessment and w a plan of care. Signatures: Dispatcher [employer] EDMS Nora Millan RN RN ed1 Arturo Acevedo PA PA cp Garcia, Cindy, RN ARPAN Brad Okeefe MD MD wa Roque, Raymond RN RN rr5 Corrections: (The following items were deleted from the chart) 12/08 01:37 01:01 Hospitalization Ordered by Carlos Diaz MD for Observation. Preliminary cg diagnosis is Fecal impaction. Bed requested for Telemetry/MedSurg (observation). Status is Observation. Condition is Stable. Problem is new. Symptoms are unchanged. UTI on Admission? No. cp 02:57 01:37 12/08/2018 01:01 Hospitalization Ordered by Carlos Diaz MD for Observation. rr5 Preliminary diagnosis is Fecal impaction. Bed requested for Telemetry/MedSurg (observation). Status is Observation. Condition is Stable. Problem is new. Symptoms are unchanged. UTI on Admission? No. cg
[2018-12-08] MEDS ORDERED: ONDANSETRON 4 MG/2 ML VIAL IV PRN (01:15)
--- NOTE | 2018-12-08 01:26 | P.HP ---
Certification for Inpatient Patient admitted to: Observation With expected LOS: <2 Midnights Practitioner: I am a practitioner with admitting privileges, knowledge of patient current condition, hospital course, and medical plan of care. Services: Services provided to patient in accordance with Admission requirements found in Title 42 Section 412.3 of the Code of Federal Regulations Patient History Date of Service: 12/08/18 Reason for admission: constipation History of Present Illness: Ms Espino is a 53 years old woman with history of cerebral palsy, depression/ anxiety, who last week fell. Since so, she has not had bowel movements (1 week) . Today, she start having abdominal pain, diffuse, she denied fever or chills. No nausea or vomiting either. Lab work shows normal WBC count, CT abd/pelvis remarkable for fecal distention with moderate to severe stool burden. Allergies Penicillins Allergy (Unverified 12/11/16 23:59) Unknown Home medications list reviewed: Yes - Past Medical/Surgical History -: cerebal palsy -: depression -: anxiety -: hyperlipidemia -: hysterectomy -: appendectomy - Family History Family History: Reviewed- Non-Contributory - Social History Smoking Status: Never smoker Alcohol use: No CD- Drugs: No Place of Residence: Home Review of Systems 10-point ROS is otherwise unremarkable Physical Examination - Physical Exam General: Alert, In no apparent distress HEENT: Atraumatic, PERRLA, Mucous membr. moist/pink, Sclerae nonicteric Neck: Supple, 2+ carotid pulse no bruit, No LAD, Without JVD or thyroid abnormality Respiratory: Clear to auscultation bilaterally, Normal air movement Cardiovascular: Regular rate/rhythm, Normal S1 S2 Gastrointestinal: Hypoactive, Distended Musculoskeletal: No tenderness Integumentary: No rashes Neurological: Normal affect, Other (cerebral palsy), Abnormal speech, Abnormal tone Lymphatics: No axilla or inguinal lymphadenopathy - Studies Laboratory Data (last 24 hrs) 12/07/18 19:55: Creatinine 1.05 12/07/18 19:55: WBC 5.9, Hgb 12.9, Hct 39.4, Plt Count 218 12/07/18 19:55: Sodium 143, Potassium 4.2, BUN 16, Creatinine 1.04, Glucose 92, Total Bilirubin 0.3, AST 14 L, ALT 17, Alkaline Phosphatase 129 H, Lipase 52 L Assessment and Plan - Problems (Diagnosis) (1) Constipation Current Visit: Yes Status: Acute (2) Cerebral palsy Current Visit: Yes Status: Acute Qualifiers: Cerebral palsy type: unspecified type Qualified Code(s): G80.9 - Cerebral palsy, unspecified (3) Depression Current Visit: Yes Status: Acute Qualifiers: Depression Type: unspecified Qualified Code(s): F32.9 - Major depressive disorder, single episode, unspecified (4) Anxiety Current Visit: Yes Status: Acute - Plan The patient received fleet enema in ER without success. Will admit the patient under observation, will order barium enema. Continue symptomatic medication. - Advance Directives Does patient have a Living Will: No Does patient have a Durable POA for Healthcare: No - Code Status/Comfort Care Code Status Assessed: Yes Code Status: Full Code
[2018-12-08] MEDS: NA CHLORIDE 0.9% 1,000 ML IV SCH ×3 (03:11→20:33)
[2018-12-08 04:02] VITALS: BMI 23.6
[2018-12-08 06:04] LABS: Absolute Lymphocytes (CBC) 1.8 K/uL (0.7-4.9); Absolute Monocytes 0.3 K/uL (0.1-1.3); Absolute Neutrophil 3.2 K/uL (1.8-8.0); Basophils % 0.5 % (0-1.3); Hematocrit 34.1 % (36.0-45.0); Lymphocytes % 32.8 % (15.3-44.8); Monocytes % 5.4 % (3.3-12.3); RBC Red Blood Cell Count 3.96 M/uL (3.86-4.86)
[2018-12-08 06:20] LABS: Potassium 3.8 mmol/L (3.5-5.1)
[2018-12-08] MEDS ORDERED: CLORAZEPATE DIPOTASSIUM PO PRN (08:55)
[2018-12-08] MEDS: PAROXETINE HCL PO SCH ×2 (09:00)
--- NOTE | 2018-12-08 10:12 | RAD REPORT ---
EXAM DESCRIPTION: CT - Abdomen Pelvis W Contrast - 12/07/2018 10:33 pm CLINICAL HISTORY: The patient is 53 years old and is Female; Constipation; abd pain TECHNIQUE: Axial computed tomography images of the abdomen and pelvis with intravenous contrast. S agittal and coronal reformatted images were created and reviewed. This CT exam was performed using one or more of the following dose reduction techniques: automated exposure control, adjustment of t he mA and/or kV according to patient size, and/or use of iterative reconstruction technique. COMPARISON: None. FINDINGS: LUNG BASES: Dependent subsegmental atelectasis versus scarring. No consolidation, pleur al effusion or pneumothorax. MEDIASTINUM: Small hiatal hernia. ABDOMEN: LIVER: Unremarkable. No mass. GALLBLADDER AND BILE DUCTS: Unremarkable. No calcified stones. No ductal dilation. PANCREAS: Unremarkable. No mass. No ductal dilation. SPLEEN: Unremarkable. No splenomegaly. ADRENALS: Unremarkable. No mass. KIDNEYS AND URETERS: Unremarkable. No solid mass. No hydronephrosis. STOMACH AND BOWEL: Enteric contrast is seen within the stomach and throughout the proximal and mid small bowel. Large bowel is not opacified. Fecal distention of the rectum measuring 5.5 cm. There is dlkazchu-iq-snoijr stool burden th roughout the large bowel. Marked redundancy of the sigmoid. No mucosal thickening. PELVIS: APPENDIX: Postsurgical changes of the right lower quadrant suggestive of prior appendectomy. BLADDER: Unremarkable. No mass. REPRODUCTIVE: Unremarkable as visualized. ABDOMEN and PELVIS: INTRAPERITONEAL SPACE: Unremarkable. No free air. No significant fluid collection. BONES/JOINTS: Advanced multilevel degenerative changes. Dextroscoliosis of the lumbar spine osteopenia Acetabular osteophytes bilaterally. No acute fracture. No dislocation. SOFT TISSUES: Fat-containing umbilical hernia. VASCULATURE: Unremarkable. No abdominal aortic aneurysm. LYMPH NODES: Unremarkable. No enlarged lymph nodes. IMPRESSION: 1. Fecal distention of the rectum and moderate to severe stool burden. Correlate for c onstipation or fecal impaction. No pneumoperitoneum. 2. Bibasilar atelectasis versus chronic lung changes. 3. Prior appendectomy. 4. Dextroscoliosis Electronically signed by: Erwin aKy DO 12/07/2018 10:12 PM CDT Due to temporary technical issues with the PACS/Fluency reporting system, reports are being signed by the in house radiologist as a courtesy to ensure prompt reporting. The interpreting radiologist is f ully responsible for the content of the report.
[2018-12-08] MEDS ORDERED: BISACODYL 10 MG RECTAL SUPP PR ONE (11:36)
[2018-12-08] MEDS ORDERED: MAGNESIUM CITRATE 300 ML BOT PO SCH (12:00)
[2018-12-08] MEDS: POLYETHYL GLY 3350 17 GM/DOSE PO SCH (13:44)
--- NOTE | 2018-12-08 17:10 | PN ---
Subjective: The patient is seen and examined. Chart reviewed and case discussed with RN and Dr. Satya chino, Radiology. The patient has history of cerebral palsy. Complains of some abdominal distention and constipation. Medications: List reviewed. Physical Examination: Vital Signs: Temperature 98.4, heart rate 67, blood pressure 141/73, respirations 15, O2 96% on room air. General: Awake, alert, oriented x3. Some mild distress. CV: S1, S2. Regular rate and rhythm. Peripheral pulses present. Respiratory: Moving air well bilaterally. No wheezing or stridor. Gastrointestinal: Abdomen is distended, mild tenderness to palpation. No rebound or guarding. Bienvenido l sounds positive. Extremities: No clubbing, cyanosis, or edema. Neuro: Nonfocal. The patient does have altered speech due to her cerebral palsy. Laboratory Data: Sodium 144, potassium 3.8, chloride 109, CO2 30, BUN 13, creatinine 0.87, glucose 9 0, calcium 8.3. WBC 5.5, H and H 11.6 and 34.1, platelets 200. CT scan of the abdomen and pelvis sh ows fecal distention of the rectum and hncunrfb-vb-qyfmyd stool burden. Bibasilar atelectasis. Dext roscoliosis. Assessment And Plan: A 53-year-old female with: 1.Constipation. The patient unable to have barium enema. I spoke with radiologist. He does not fe el that this will be successful given the amount of stool that is present. We will give trial of mag nesium citrate enema, Fleet enema, and stool softeners. We will avoid any narcotics. 2.Cerebral palsy, stable. 3.Major depressive disorder, in remission. We will continue home medications as appropriate. 4.Generalized anxiety disorder. Plan: We will start on stool softeners and adjust as needed. /GRETCHEN Voice ID: [id number] Report ID: [id number]
[2018-12-08] MEDS: ZOLPIDEM TARTRATE 10 MG TABLET PO SCH (20:32)
[2018-12-08] MEDS: DOCUSATE NA 100 MG CAP PO SCH (20:32)
[2018-12-08] MEDS: ATORVASTATIN 10 MG TAB PO SCH (20:33)
[2018-12-09] MEDS: NA CHLORIDE 0.9% 1,000 ML IV SCH (04:40)
[2018-12-09 06:14] LABS: Absolute Lymphocytes (CBC) 1.1 K/uL (0.7-4.9); Absolute Monocytes 0.3 K/uL (0.1-1.3); Absolute Neutrophil 5.1 K/uL (1.8-8.0); Basophils % 0.5 % (0-1.3); Eosinophils % 0.4 % (0-4.4); Hematocrit 38.3 % (36.0-45.0); Lymphocytes % 17.4 % (15.3-44.8); Monocytes % 4.3 % (3.3-12.3); RBC Red Blood Cell Count 4.45 M/uL (3.86-4.86)
[2018-12-09 07:03] LABS: Potassium 4.2 mmol/L (3.5-5.1)
[2018-12-09] MEDS: D5 0.45 NS 1,000 ML IV SCH ×2 (07:54→21:20)
[2018-12-09] MEDS ORDERED: D50W 25 GM/50 ML SYRINGE IV PRN (08:00)
[2018-12-09] MEDS: PAROXETINE HCL PO SCH ×2 (09:00)
[2018-12-09] MEDS: POLYETHYL GLY 3350 17 GM/DOSE PO SCH ×2 (09:00→10:56)
[2018-12-09] MEDS: DOCUSATE NA 100 MG CAP PO SCH ×3 (09:00→21:00)
--- NOTE | 2018-12-09 10:21 | RAD REPORT ---
EXAM DESCRIPTION: RAD - Abdomen Single View - 12/09/2018 10:09 am CLINICAL HISTORY: Constipation, abdominal pain COMPARISON: December 07 CT study FINDINGS: No bowel obstruction, free air or pneumatosis. Compared to the CT study, there has been killian bstantial reduction in the amount of stool volume in the colon. There is a thin coating of contrast m aterial on the daniel of the colon indicating the CT contrast from December 07 has reached the distal re ctum. No extravasation of contrast. IMPRESSION: Large stool volume in the colon seen December 07 CT study has substantially reduced in volum e. No extravasation of contrast. No obstruction.
[2018-12-09] MEDS: ATORVASTATIN 10 MG TAB PO SCH (21:00)
[2018-12-09] MEDS: ZOLPIDEM TARTRATE 10 MG TABLET PO SCH (21:00)
[2018-12-09 23:53] VITALS: BP 149/76; TEMP 98.4
[2018-12-10 02:44] VITALS: O2SAT 97
--- NOTE | 2018-12-10 05:07 | DS ---
Date of Discharge: 12/09/2018 Discharge Diagnoses: 1.Constipation. 2.Cerebral palsy. 3.Major depressive disorder. 4.Generalized anxiety disorder. 5.Hypoglycemia, corrected. Hospital Course: The patient is a 53-year-old female with history of cerebral palsy, who comes into the hospital for diffuse abdominal pain. No fever, chills, nausea, or vomiting. CT scan showed ceca l distention and wnigwggj-fg-peypxm stool burden. The patient was started on stool softeners, magnes ium citrate, Dulcolax, MiraLAX, and Colace. The patient had improvement in her symptoms and she was able to have 2 large bowel movements. Repeat abdominal x-ray showed improvement in her stool burden. The patient was then cleared for discharge. The patient was scheduled for a swallow evaluation, bu t she was in the hospital, unable to have it done while she was here. She did not have any difficult y swallowing. No choking episodes. The patient will have Speech Therapy evaluation and swallow func tioning reschedule. The patient is to follow up with primary care physician in 2-3 days. Return to ER for worsening condition. Diet: High-fiber diet. Activity: Transfer to wheelchair. Fall precautions. Medications: As per medication reconciliation list. Physical Examination: General: Awake, alert, and oriented x3. No acute distress. CV: S1, S2. No murmurs. Respiratory: Moving air well bilaterally. Abdomen: Soft, nondistended. Positive bowel sounds. Extremities: No clubbing, cyanosis, edema. Neurologic: The patient has cerebral palsy, dysarthria. SA/MODL Voice ID: [id number] Report ID: [id number]
== END 2018-12-09 23:45 | disposition home or self-care (01) ==
LOC: ER 19:09 → ERHOLD 12-08 01:18 → 2ND 12-08 02:30
PROVIDERS: ADMIT Internal Medicine; ATTEND Family Medicine
DX: K59.00 Constipation, unspecified (principal); G80.9 Cerebral palsy, unspecified; F33.40 Major depressive disorder, recurrent, in remission, unspecified; F41.9 Anxiety disorder, unspecified; E78.5 Hyperlipidemia, unspecified; E16.2 Hypoglycemia, unspecified; Z88.0 Allergy status to penicillin; Z90.89 Acquired absence of other organs; Z90.710 Acquired absence of both cervix and uterus
CPT/HCPCS: 96361; 87088; 85025 ×3; 87086; 80048 ×3; 36415 ×2; 81025; 82962; 80076; 87077; 87186; 83690; 74177; 74018; 96360; 99285; Q9967; J7030 ×5; G0378 ×2; 81003; 81015

== ENCOUNTER 2019-04-23 12:02 | Emergency (ER) | payer OTHER ==
[2019-04-23] MEDS ORDERED: NA CHLORIDE 0.9% 500 ML ONE (12:44)
[2019-04-23 12:50] LABS: Absolute Lymphocytes (CBC) 1.6 K/uL (0.7-4.9); Basophils % 0.8 % (0-1.3); Hematocrit 38.8 % (36.0-45.0); Lymphocytes % 30.5 % (15.3-44.8); MPV 8.8 fL (7.6-11.3); RBC Red Blood Cell Count 4.48 M/uL (3.86-4.86)
[2019-04-23 12:54] LABS: ALT/SGPT 19 U/L (12-78); AST/SGOT 19 U/L (15-37); Albumin 3.8 g/dL (3.4-5.0); Alkaline Phosphatase 125 U/L (45-117); BUN Blood Urea Nitrogen 16 mg/dL (7-18); Bicarbonate 32 mmol/L (21-32); Bilirubin Direct < 0.1 mg/dL (0-0.2); Bilirubin Total 0.3 mg/dL (0.2-1.0); Glucose Level 95 mg/dL (74-106); Lipase 112 U/L (73-393); Potassium 3.9 mmol/L (3.5-5.1); Protein, Total 6.9 g/dL (6.4-8.2); Sodium Level 144 mmol/L (136-145)
[2019-04-23 13:04] LABS: Urine Bacteria >50 /HPF (<20); Urine Culture Reflex Order NOT NEEDED; Urine RBC <5 /HPF (NONE SEEN)
[2019-04-23 13:17] LABS: Urine Blood 2+ (NEG); Urine Glucose NEGATIVE (NEG); Urine Protein NEGATIVE (NEG)
--- NOTE | 2019-04-23 13:44 | ER ---
Nurse's Notes [facility] Name: Marina Espino Age: 53 yrs Sex: Female : 1965 Arrival Date: 04/23/2019 Time: 12:03 Bed 15 Private MD: Diagnosis: Urinary tract infection, site not specified Presentation: 04/23 12:06 Presenting complaint: EMS states: Pt report difficulty urinating, denies N/V/D, pain or ph chills. Transition of care: patient was not received from another setting of care. Onset of symptoms was April 23, 2019. Risk Assessment: Do you want to hurt yourself or someone else? Patient reports no desire to harm self or others. Initial Sepsis Screen: Does the patient meet any 2 criteria? No. Patient's initial sepsis screen is negative. Does the patient have a suspected source of infection? Yes: Dysuria/Frequency/Urgency/UTI. Care prior to arrival: None. 12:06 Method Of Arrival: EMS: [facility] ph 12:06 Acuity: GERRI 3 ph Historical: - Allergies: 12:06 PENICILLINS; ph - Home Meds: 12:06 Ambien 10 mg Oral tab 1 tab nightly [Active]; clorazepate dipotassium 7.5 mg Oral tab 1 ph tab qhs p rn [Active]; paroxetine HCl 12.5 mg Oral Tb24 1 tab once daily [Active]; paroxetine HCl 25 mg Oral Tb24 2 tabs nightly [Active]; pravastatin 20 mg Oral tab 1 tab nightly [Active]; - PMHx: 12:06 Anxiety; Cerebral Palsy; Depression; Hyperlipidemia; ph - PSHx: 12:06 Hysterectomy; Appendectomy; ph - Immunization history:: Adult Immunizations unknown. - Social history:: Smoking status: Patient/guardian denies using tobacco. - Ebola Screening: : No symptoms or risks identified at this time. Screenin:09 Abuse screen: Denies threats or abuse. Denies injuries from another. Nutritional ph screening: No deficits noted. Tuberculosis screening: No symptoms or risk factors identified. Fall Risk No fall in past 12 months (0 pts). Secondary diagnosis (15 points) impaired mobility, IV access (20 points). Ambulatory Aid- Crutches/Cane/Walker (15 pts). Gait- Impaired (20 pts.). Mental Status- Oriented to own ability (0 pts). Total Hamlin Fall Scale indicates High Risk Score (45 or more points). Fall prevention measures have been instituted. Side Rails Up X 2 Placed Close to Nursing Station Frequent Obs/Assessments Occuring As available patient and family educated on Fall Prevention Program and Strategies. Assessment: 12:34 General: Appears in no apparent distress. comfortable, well groomed, Behavior is calm, ph cooperative, appropriate for age. Pain: Denies pain. Neuro: Level of Consciousness is awake, alert, obeys commands, Oriented to person, place, time, situation. Cardiovascular: Capillary refill is > 3 seconds Patient's skin is warm and dry. Respiratory: Airway is patent Respiratory effort is even, unlabored. GI: Patient currently denies abdominal pain, diarrhea, nausea, vomiting. : Reports inability to void, states, " Only a little comes out" Denies pain in suprapubic area. Derm: Skin is intact, Skin is pink, warm \\T\\ dry. 13:30 Reassessment: Patient appears in no apparent distress at this time. Patient and/or ph family updated on plan of care and expected duration. Pain level reassessed. Patient is alert, oriented x 3, equal unlabored respirations, skin warm/dry/pink. 14:37 Reassessment: Patient appears in no apparent distress at this time. Patient and/or ph family updated on plan of care and expected duration. Pain level reassessed. Patient is alert, oriented x 3, equal unlabored respirations, skin warm/dry/pink. Pt d/c home w/ SO. Vital Signs: 12:08 BP 135 / 65; Pulse 77; Resp 18; Temp 98.9(O); Pulse Ox 100% on R/A; Weight 49.9 kg; ph 12:56 BP 150 / ???; Pulse 86; Resp 18; Pulse Ox 100% on R/A; ph 14:37 BP 141 / 72; Pulse 81; Resp 18; Temp 97.8; Pulse Ox 99% on R/A; ph ED Course: 12:03 Patient arrived in ED. ph 12:04 Arturo Acevedo PA is PHCP. cp 12:04 Michael Lehman MD is Attending Physician. cp 12:07 Triage completed. ph 12:09 Arm band placed on Patient placed in an exam room, on a stretcher, on pulse oximetry. ph 12:09 Patient has correct armband on for positive identification. Bed in low position. Call ph light in reach. Side rails up X 1. Pulse ox on. NIBP on. Door closed. Noise minimized. Warm blanket given. 12:10 France Lopez, RN is Primary Nurse. ph 12:22 Initial lab(s) drawn, by az, sent to lab. Inserted saline lock: 22 gauge in right 3 antecubital area, using aseptic technique. Blood collected. 14:38 No provider procedures requiring assistance completed. IV discontinued, intact, ph bleeding controlled, No redness/swelling at site. Pressure dressing applied. Administered Medications: 12:48 Drug: NS 0.9% 500 ml Route: IV; Rate: bolus; Site: right antecubital; ph 14:37 Follow up: Response: No adverse reaction; IV Status: Completed infusion; IV Intake: ph 500ml 14:15 Drug: Rocephin 1 grams Route: IV; Rate: calculated rate; Site: right antecubital; ph 14:37 Follow up: Response: No adverse reaction; IV Status: Completed infusion ph Intake: 14:37 IV: 500ml; Total: 500ml. ph Outcome: 13:43 Discharge ordered by MD. cp 14:38 Discharged to home via wheelchair, with significant other. ph 14:38 Condition: good 14:38 Discharge instructions given to patient, significant other, Instructed on discharge instructions, follow up and referral plans. medication usage, Demonstrated understanding of instructions, follow-up care, medications, Prescriptions given X 2. 14:39 Patient left the ED. ph Signatures: France Lopez, RN RN ph Arturo Acevedo, LADONNA PA Jacklyn Arredondo [facility]
--- NOTE | 2019-04-23 13:44 | EDPHYS ---
Physician Documentation [facility] Name: Marina Espino Age: 53 yrs Sex: Female : 1965 Arrival Date: 04/23/2019 Time: 12:03 Bed 15 Private MD: ED Physician Michael Lehman HPI: 04/23 12:10 This 53 yrs old Female presents to ER via EMS with complaints of Urinary cp Problem. 12:10 The patient presents with urinary symptoms, dysuria, urinary retention. Onset: The cp symptoms/episode began/occurred 4 day(s) ago. Associated signs and symptoms: Pertinent negatives: constipation, cramping, fever. Severity of symptoms: in the emergency department the symptoms are unchanged. Historical: - Allergies: 12:06 PENICILLINS; ph - Home Meds: 12:06 Ambien 10 mg Oral tab 1 tab nightly [Active]; clorazepate dipotassium 7.5 mg Oral tab 1 ph tab qhs p rn [Active]; paroxetine HCl 12.5 mg Oral Tb24 1 tab once daily [Active]; paroxetine HCl 25 mg Oral Tb24 2 tabs nightly [Active]; pravastatin 20 mg Oral tab 1 tab nightly [Active]; - PMHx: 12:06 Anxiety; Cerebral Palsy; Depression; Hyperlipidemia; ph - PSHx: 12:06 Hysterectomy; Appendectomy; ph - Immunization history:: Adult Immunizations unknown. - Social history:: Smoking status: Patient/guardian denies using tobacco. - Ebola Screening: : No symptoms or risks identified at this time. ROS: 12:20 Constitutional: Negative for body aches, chills, fever, poor PO intake. cp 12:20 Eyes: Negative for injury, pain, redness, and discharge. cp 12:20 ENT: Negative for drainage from ear(s), ear pain, sore throat, difficulty swallowing, difficulty handling secretions. 12:20 Cardiovascular: Negative for chest pain. 12:20 Respiratory: Negative for cough, shortness of breath, wheezing. 12:20 Abdomen/GI: Negative for abdominal pain, nausea, vomiting, and diarrhea, anorexia, black/tarry stool, rectal bleeding. 12:20 Back: Negative for pain at rest, pain with movement. 12:20 : Positive for burning with urination, difficulty urinating, Negative for vaginal discharge. 12:20 Neuro: Negative for altered mental status, weakness. 12:20 All other systems are negative. Exam: 12:25 Constitutional: The patient appears in no acute distress, alert, awake, non-toxic, well cp developed, well nourished. 12:25 Head/Face: Normocephalic, atraumatic. cp 12:25 Eyes: Periorbital structures: appear normal, Conjunctiva: normal, no exudate, no injection, Sclera: no appreciated abnormality, Lids and lashes: appear normal. 12:25 ENT: External ear(s): are unremarkable, Nose: is normal, Mouth: Lips: moist, Oral mucosa: moist, Posterior pharynx: Airway: no evidence of obstruction, patent. 12:25 Chest/axilla: Inspection: normal. 12:25 Cardiovascular: Rate: normal. 12:25 Respiratory: the patient does not display signs of respiratory distress, Respirations: normal, no use of accessory muscles, no retractions. 12:25 Abdomen/GI: Inspection: abdomen appears normal, Bowel sounds: active, all quadrants, Palpation: abdomen is soft and non-tender, in all quadrants, rebound tenderness, is not appreciated, involuntary guarding, is not appreciated. 12:25 Back: pain, is absent. Vital Signs: 12:08 BP 135 / 65; Pulse 77; Resp 18; Temp 98.9(O); Pulse Ox 100% on R/A; Weight 49.9 kg; ph 12:56 BP 150 / ???; Pulse 86; Resp 18; Pulse Ox 100% on R/A; ph 14:37 BP 141 / 72; Pulse 81; Resp 18; Temp 97.8; Pulse Ox 99% on R/A; ph MDM: 12:05 Patient medically screened. cp 13:00 Differential diagnosis: pelvic inflammatory disease, urinary tract infection, vaginosis.cp 13:40 Data reviewed: vital signs, nurses notes, lab test result(s), and as a result, I will cp discharge patient. 13:40 Counseling: I had a detailed discussion with the patient and/or guardian regarding: the cp historical points, exam findings, and any diagnostic results supporting the discharge/admit diagnosis, lab results, to return to the emergency department if symptoms worsen or persist or if there are any questions or concerns that arise at home. 08/18 12:05 Order name: Basic Metabolic Panel; Complete Time: 13:27 cp 04/23 13:27 Interpretation: Normal except: CL 108; GFR 63. cp 04/23 12:05 Order name: CBC with Diff; Complete Time: 13:27 cp 04/23 12:05 Order name: Creatinine for Radiology; Complete Time: 13:27 cp 04/23 12:05 Order name: Hepatic Function; Complete Time: 13:27 cp 04/23 12:05 Order name: Lipase; Complete Time: 13:27 cp 04/23 12:05 Order name: Urine Microscopic Only; Complete Time: 13:27 cp 04/23 12:05 Order name: IV Saline Lock; Complete Time: 12:30 cp 04/23 12:05 Order name: Labs collected and sent; Complete Time: 12:30 cp 04/23 12:05 Order name: Urine Dipstick-Ancillary (obtain specimen); Complete Time: 12:47 cp 04/23 12:05 Order name: Urine Test (obtain specimen); Complete Time: 12:47 cp 04/23 12:51 Order name: Urine Dipstick--Ancillary (enter results); Complete Time: 13:27 eb Administered Medications: 12:48 Drug: NS 0.9% 500 ml Route: IV; Rate: bolus; Site: right antecubital; ph 14:37 Follow up: Response: No adverse reaction; IV Status: Completed infusion; IV Intake: ph 500ml 14:15 Drug: Rocephin 1 grams Route: IV; Rate: calculated rate; Site: right antecubital; ph 14:37 Follow up: Response: No adverse reaction; IV Status: Completed infusion ph Disposition: 04/23/19 13:43 Discharged to Home. Impression: Urinary tract infection, site not specified. - Condition is Stable. - Discharge Instructions: Urinary Tract Infection, Adult. - Prescriptions for Zofran 4 mg Oral Tablet - take 1 tablet by ORAL route every 12 hours As needed; 20 tablet. Bactrim DS 800- 160 mg Oral Tablet - take 1 tablet by ORAL route every 12 hours for 7 days; 14 tablet. - Medication Reconciliation Form, Thank You Letter, Antibiotic Education, Prescription Opioid Use form. - Follow up: Private Physician; When: 2 - 3 days; Reason: Recheck today's complaints. - Problem is new. - Symptoms have improved. Addendum: 04/25/2019 15:32 Co-signature as Attending Physician, Michael Lehman MD. g s Signatures: Dispatcher [employer] France Atwood RN RN ph Kristina, LADONNA Morris PA Michael Gonzalez MD MD Corrections: (The following items were deleted from the chart) 04/23 14:39 13:43 04/23/2019 13:43 Discharged to Home. Impression: Urinary tract infection, site ph not specified. Condition is Stable. Forms are Medication Reconciliation Form, Thank You Letter, Antibiotic Education, Prescription Opioid Use. Follow up: Private Physician; When: 2 - 3 days; Reason: Recheck today's complaints. Problem is new. Symptoms have improved. cp
[2019-04-23] MEDS ORDERED: CEFTRIAXONE/SWI 1gm 1 GM/10 ML SYR ONE (14:03)
[2019-04-23 14:51] VITALS: BP 141/72; TEMP 97.8; O2SAT 99
== END 2019-04-23 14:39 | disposition home or self-care (01) ==
LOC: ER 12:02
DX: N39.0 Urinary tract infection, site not specified (principal); E78.5 Hyperlipidemia, unspecified; F32.9 Major depressive disorder, single episode, unspecified; G80.9 Cerebral palsy, unspecified; Z88.0 Allergy status to penicillin
CPT/HCPCS: 96365; 96361; 85025; 80048; 36415; 80076; 83690; 99284; J0696; 81003; 81015

== ENCOUNTER 2020-03-31 14:50 | Emergency (ER) | payer OTHER ==
[2020-03-31 16:04] LABS: Urine Blood 2+ (NEG); Urine Glucose NEGATIVE (NEG); Urine Protein NEGATIVE (NEG); Urine Specific Gravity 1.025 (1.005-1.030); Urine pH 6.5 (5.0-7.0)
[2020-03-31 16:09] LABS: Urine Amorphous Sediment TRACE /HPF (NONE SEEN); Urine Bacteria NONE SEEN /HPF (<20); Urine Culture Reflex Order NOT NEEDED; Urine Mucus 1+ /HPF (NONE SEEN)
[2020-03-31 16:42] LABS: Absolute Lymphocytes (CBC) 1.4 K/uL (0.7-4.9); Basophils % 0.8 % (0-1.3); Hematocrit 37.6 % (36.0-45.0); Lymphocytes % 26.9 % (15.3-44.8); MPV 8.4 fL (7.6-11.3); RBC Red Blood Cell Count 4.34 M/uL (3.86-4.86)
[2020-03-31 16:55] LABS: Potassium 4.1 mmol/L (3.5-5.1)
--- NOTE | 2020-03-31 17:31 | RAD REPORT ---
EXAM DESCRIPTION: CT - Stone Protocol - 03/31/2020 5:21 pm CLINICAL HISTORY: Abdominal pain. COMPARISON: 2018 TECHNIQUE: Computed axial tomography of the abdomen pelvis was obtained without oral or IV contrast. Lack of IV and oral contrast limits evaluation of solid organs, bowel, and vessels. Coronal reformat mary images were obtained and reviewed. All CT scans are performed using dose optimization technique as appropriate and may include automated exposure control or mA/KV adjustment according to patient size. FINDINGS: A renal calculus is not seen. An ureteral calculus is not noted. A bladder calculus is not present. The liver, spleen, pancreas and adrenals appear grossly normal There is no evidence of diverticulitis. Moderate amount of stool throughout colon Small umbilical hernia IMPRESSION: Moderate amount of stool throughout the colon
--- NOTE | 2020-03-31 17:45 | ER ---
Nurse's Notes [facility] Name: Marina Espino Age: 54 yrs Sex: Female : 1965 Arrival Date: 03/31/2020 Time: 14:57 Bed 19 Private MD: Diagnosis: Dysuria Presentation: 03/31 14:58 Chief complaint: EMS states: Pt hx of Cerebral Palsy c/o R flank pain and unable to ca1 urinate since this morning. Toradol 30mg given IV, with reports of pain relief. Coronavirus screen: Patient denies a cough. Patient denies shortness of breath or difficulty breathing. Patient denies measured and/or subjective temperature greater than 100.4F prior to today's visit. Patient denies travel on a cruise ship or to a country the [facility] currently lists as an affected area. Patient denies contact with known and/or suspected case of COVID-19. Proceed with normal triage. Ebola Screen: Patient negative for fever greater than or equal to 101.5 degrees Fahrenheit, and additional compatible Ebola Virus Disease symptoms Patient denies exposure to infectious person. Patient denies travel to an Ebola-affected area in the 21 days before illness onset. No symptoms or risks identified at this time. Initial Sepsis Screen: Does the patient meet any 2 criteria? No. Patient's initial sepsis screen is negative. Does the patient have a suspected source of infection? No. Patient's initial sepsis screen is negative. Risk Assessment: Do you want to hurt yourself or someone else? Patient reports no desire to harm self or others. Onset of symptoms was March 31, 2020. 14:58 Method Of Arrival: EMS: [facility] ca1 14:58 Acuity: GERRI 3 ca1 Triage Assessment: 15:03 General: Appears in no apparent distress. comfortable, Behavior is calm, cooperative, ca1 appropriate for age. Pain: Complains of pain in right mid back and right low back Pain currently is 6 out of 10 on a pain scale. EENT: No signs and/or symptoms were reported regarding the EENT system. Neuro: Level of Consciousness is awake, alert, obeys commands, Oriented to person, place, time, situation. Cardiovascular: Heart tones S1 S2 present Capillary refill < 3 seconds Patient's skin is warm and dry. Respiratory: Airway is patent Respiratory effort is even, unlabored, Respiratory pattern is regular, symmetrical, Breath sounds are clear bilaterally. GI: Abdomen is flat, non-distended, Bowel sounds present X 4 quads. Abd is soft and non tender X 4 quads. : Reports inability to void, since this morning. Derm: Skin is intact, is healthy with good turgor, Skin is pink, warm \T\ dry. Musculoskeletal: Circulation, motion, and sensation intact. Capillary refill < 3 seconds. Historical: - Allergies: 15:03 PENICILLINS; ca1 - Home Meds: 15:03 pravastatin 20 mg Oral tab 1 tab nightly [Active]; zolpidem 10 mg Oral tab 1 tab once ca1 daily [Active]; clorazepate dipotassium 7.5 mg Oral tab 1 tab qhs p rn [Active]; paroxetine HCl 12.5 mg Oral Tb24 1 tab once daily [Active]; - PMHx: 15:03 Anxiety; Cerebral Palsy; Depression; Hyperlipidemia; ca1 - PSHx: 15:03 Hysterectomy; Appendectomy; ca1 - Immunization history:: Adult Immunizations up to date. - Social history:: Smoking status: Patient denies any tobacco usage or history of. Screenin:06 Abuse screen: Denies threats or abuse. Denies injuries from another. Nutritional ca1 screening: No deficits noted. Tuberculosis screening: No symptoms or risk factors identified. Fall Risk Secondary diagnosis (15 points) impaired mobility, IV access (20 points). Total Hamlin Fall Scale indicates Low Risk Score (25-44 pts). Fall prevention measures have been instituted. Side Rails Up X 2 As available Patient and Family Educated on Fall Prevention Program and strategies. Assessment: 15:05 Reassessment: Julia Quinonez [phone]. ca1 15:06 Reassessment: See triage assessment. ca1 16:14 Reassessment: Patient appears in no apparent distress at this time. Patient and/or ca1 family updated on plan of care and expected duration. Pain level reassessed. Patient is alert, oriented x 3, equal unlabored respirations, skin warm/dry/pink. 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 ks7 17:19 Reassessment: Patient appears in no apparent distress at this time. Patient and/or ca1 family updated on plan of care and expected duration. Pain level reassessed. Patient is alert, oriented x 3, equal unlabored respirations, skin warm/dry/pink. 17:55 Reassessment: Patient appears in no apparent distress at this time. Patient is alert, ca1 oriented x 3, equal unlabored respirations, skin warm/dry/pink. 18:05 Reassessment: Caregiver Julia 20 minutes away. will call when she arrives. ks7 Vital Signs: 14:58 BP 136 / 75; Pulse 74; Resp 18 S; Temp 98.2(O); Pulse Ox 100% on R/A; Weight 45.36 kg ca1 (R); Height 5 ft. 0 in. (152.40 cm) (R); Pain 6/10; 16:00 BP 124 / 78; Pulse 65; Resp 15 S; Pulse Ox 100% on R/A; ca1 17:00 BP 132 / 68; Pulse 68; Resp 17; Pulse Ox 100% on R/A; ca1 17:56 BP 132 / 69; Pulse 63; Resp 15 S; Pulse Ox 99% on R/A; ca1 18:24 BP 138 / 66; Pulse 69; Resp 18; Temp 98.3(TE); Pulse Ox 100% on R/A; Pain 0/10; ks7 14:58 Body Mass Index 19.53 (45.36 kg, 152.40 cm) ca1 ED Course: 14:57 Patient arrived in ED. ca1 14:58 Maintain EMS IV. Dressing intact. Good blood return noted. Site clean \T\ dry. Gauge \T\ ca 1 site: g20 LAC. 15:00 Triage completed. ca1 15:03 Dionte Bran PA is PHCP. [facility] [place] 15:03 Arturo Cameron MD is Attending Physician. jmm 15:03 Arm band placed on right wrist. ca1 15:06 Patient has correct armband on for positive identification. Placed in gown. Bed in low ca1 position. Call light in reach. Side rails up X2. Pulse ox on. NIBP on. Warm blanket given. 15:09 Cally Marrufo, ARPAN is Primary Nurse. ca1 15:51 Straight cath inserted, using sterile technique, 18 Fr. Returned cloudy urine. Patient ca1 tolerated well. 17:22 CT Stone Protocol In Process Unspecified. EDMS 18:19 No provider procedures requiring assistance completed. ca1 18:43 IV discontinued, intact, bleeding controlled, No redness/swelling at site. Pressure ks7 dressing applied. Administered Medications: No medications were administered Outcome: 17:44 Discharge ordered by MD. mendez 18:43 Discharged to home via wheelchair, with caregiver Julia pacheco 18:43 Condition: stable 18:43 Discharge instructions given to patient, pipe finisher, Instructed on discharge instructions, Demonstrated understanding of instructions, follow-up care. 18:44 Patient left the ED. ks7 Signatures: Dispatcher [employer] EDMS Dionte Bran PA PA jmm Acob, Cheryl RN RN ca1 Chetna Trammell RN RN ks7 Corrections: (The following items were deleted from the chart) 17:56 17:19 BP 190 / 89; Pulse 77bpm; Resp 17bpm; Spontaneous; Pulse Ox 95% RA; ca1 ca1
--- NOTE | 2020-03-31 17:45 | EDPHYS ---
Physician Documentation [facility] Name: Marina Espino Age: 54 yrs Sex: Female : 1965 Arrival Date: 03/31/2020 Time: 14:57 Bed 19 Private MD: ED Physician Arturo Cameron HPI: 03/31 15:27 This 54 yrs old Female presents to ER via EMS with complaints of Urinary jmm Retention. 15:27 Onset: The symptoms/episode began/occurred acutely, today. Modifying factors: The jmm patient symptoms are alleviated by nothing, the patient symptoms are aggravated by nothing. The patient has experienced similar episodes in the past. This is a 54 year old female with a history of cp, depression, HLP, that presents to the ED with complaints of of being unable to urinate. Patient states she has had similar symptoms in the past. Denies fever or vomiting. Historical: - Allergies: 15:03 PENICILLINS; ca1 - Home Meds: 15:03 pravastatin 20 mg Oral tab 1 tab nightly [Active]; zolpidem 10 mg Oral tab 1 tab once ca1 daily [Active]; clorazepate dipotassium 7.5 mg Oral tab 1 tab qhs p rn [Active]; paroxetine HCl 12.5 mg Oral Tb24 1 tab once daily [Active]; - PMHx: 15:03 Anxiety; Cerebral Palsy; Depression; Hyperlipidemia; ca1 - PSHx: 15:03 Hysterectomy; Appendectomy; ca1 - Immunization history:: Adult Immunizations up to date. - Social history:: Smoking status: Patient denies any tobacco usage or history of. ROS: 15:27 Constitutional: Negative for fever, chills, and weight loss, Cardiovascular: Negative jmm for chest pain, palpitations, and edema, Respiratory: Negative for shortness of breath, cough, wheezing, and pleuritic chest pain. 15:27 : Positive for urinary symptoms. 15:27 All other systems are negative. Exam: 15:27 Constitutional: This is a well developed, well nourished patient who is awake, alert, jmm and in no acute distress. Head/Face: atraumatic. Eyes: EOMI, no conjunctival erythema appreciated ENT: Moist Mucus Membranes Neck: Trachea midline, Supple Chest/axilla: Normal chest wall appearance and motion. Cardiovascular: Regular rate and rhythm. No edema appreciated Respiratory: Normal respirations, no respiratory distress appreciated 15:27 Back: Normal ROM Skin: General appearance color normal MS/ Extremity: Moves all extremities, no obvious deformities appreciated, no edema noted to the lower extremities Neuro: Awake and alert, normal gait Psych: Behavior is normal, Mood is normal, Patient is cooperative and pleasant 15:27 Abdomen/GI: Inspection: abdomen appears normal, Bowel sounds: normal, Palpation: Vital Signs: 14:58 BP 136 / 75; Pulse 74; Resp 18 S; Temp 98.2(O); Pulse Ox 100% on R/A; Weight 45.36 kg ca1 (R); Height 5 ft. 0 in. (152.40 cm) (R); Pain 6/10; 16:00 BP 124 / 78; Pulse 65; Resp 15 S; Pulse Ox 100% on R/A; ca1 17:00 BP 132 / 68; Pulse 68; Resp 17; Pulse Ox 100% on R/A; ca1 17:56 BP 132 / 69; Pulse 63; Resp 15 S; Pulse Ox 99% on R/A; ca1 18:24 BP 138 / 66; Pulse 69; Resp 18; Temp 98.3(TE); Pulse Ox 100% on R/A; Pain 0/10; ks7 14:58 Body Mass Index 19.53 (45.36 kg, 152.40 cm) ca1 MDM: 15:09 Patient medically screened. delfin 17:43 Data reviewed: vital signs, nurses notes. Counseling: I had a detailed discussion with vanessa the patient and/or guardian regarding: the historical points, exam findings, and any diagnostic results supporting the discharge/admit diagnosis, lab results, radiology results, the need for outpatient follow up, to return to the emergency department if symptoms worsen or persist or if there are any questions or concerns that arise at home. ED course: Patient is alert and non toxic in appearance in the ED. Labs and imaging unremarkable. Patient is advised to follow up with pcp and otherwise given strict return precautions. Patient understood and agrees with the plan of care. . 03/31 15:24 Order name: Urine Culture [facility] 03/31 15:25 Order name: Urine Microscopic Only; Complete Time: 16:11 [facility] 03/31 16:00 Order name: Urine Dipstick--Ancillary (enter results); Complete Time: 16:11 03/31 16:12 Order name: BMP; Complete Time: 17:00 [facility] 03/31 16:12 Order name: CBC with Diff; Complete Time: 16:47 [facility] 03/31 16:47 Order name: CT Stone Protocol; Complete Time: 17:43 [facility] 03/31 15:11 Order name: Urine Dipstick-Ancillary (obtain specimen); Complete Time: 15:50 [facility] Administered Medications: No medications were administered Disposition: 04/01 05:35 Co-signature as Attending Physician, Arturo Cameron MD I agree with the assessment and [facility] plan of care. Disposition: 03/31/20 17:44 Discharged to Home. Impression: Dysuria. - Condition is Stable. - Discharge Instructions: Dysuria. - Medication Reconciliation Form, Thank You Letter, Antibiotic Education, Prescription Opioid Use form. - Follow up: Private Physician; When: 2 - 3 days; Reason: Recheck today's complaints, Continuance of care, Re-evaluation by your physician. Signatures: Dispatcher [employer] EDArturo Bird MD MD cha Mickail, Joel, PA PA Cally Sparrow, RN Chetna Cueavs RN RN ks7 Corrections: (The following items were deleted from the chart) 03/31 18:44 17:44 03/31/2020 17:44 Discharged to Home. Impression: Dysuria. Condition is Stable. ks7 Forms are Medication Reconciliation Form, Thank You Letter, Antibiotic Education, Prescription Opioid Use. Follow up: Private Physician; When: 2 - 3 days; Reason: Recheck today's complaints, Continuance of care, Re-evaluation by your physician. vanessa
[2020-03-31 18:55] VITALS: BP 138/66; TEMP 98.3; O2SAT 100
== END 2020-03-31 18:44 | disposition home or self-care (01) ==
LOC: ER 14:50
DX: R30.0 Dysuria (principal); F34.1 Dysthymic disorder; E78.5 Hyperlipidemia, unspecified; Z88.0 Allergy status to penicillin
CPT/HCPCS: 36415; 51702; 74176; 76377; 80048; 81003; 81015; 85025; 87086; 87088; 99284

== ENCOUNTER 2020-09-18 18:08 | Emergency (ER) | payer OTHER ==
--- NOTE | 2020-09-18 21:58 | ER ---
Nurse's Notes [facility] Name: Marina Espino Age: 54 yrs Sex: Female : 1965 Arrival Date: 09/18/2020 Time: 18:11 Bed 13 [facility] MD: Diagnosis: Dermatitis, unspecified;Allergic contact dermatitis Presentation: 09/18 19:16 Chief complaint: Itchy rash on abdomen x 4 days. Coronavirus screen: At this time, the hb client does not indicate any symptoms associated with coronavirus-19. Ebola Screen: No symptoms or risks identified at this time. Initial Sepsis Screen: Does the patient meet any 2 criteria? No. Patient's initial sepsis screen is negative. Does the patient have a suspected source of infection? No. Patient's initial sepsis screen is negative. Risk Assessment: Do you want to hurt yourself or someone else? Patient reports no desire to harm self or others. Onset of symptoms was September 14, 2020. 19:16 Method Of Arrival: Wheelchair 19:16 Acuity: GERRI 4 hb Historical: - Allergies: 19:18 PENICILLINS; hb - Home Meds: 19:18 clorazepate dipotassium 7.5 mg Oral tab 1 tab qhs p rn [Active]; paroxetine HCl 12.5 mg hb Oral Tb24 1 tab once daily [Active]; pravastatin 20 mg Oral tab 1 tab nightly [Active]; zolpidem 10 mg Oral tab 1 tab once daily [Active]; - PMHx: 19:18 Anxiety; Cerebral Palsy; Depression; Hyperlipidemia; hb - PSHx: 19:18 Hysterectomy; Appendectomy; hb - Immunization history:: Adult Immunizations up to date. - Social history:: Smoking status: Patient denies any tobacco usage or history of. - Family history:: not pertinent. Screenin:11 Abuse screen: Denies threats or abuse. Denies injuries from another. Nutritional zb screening: No deficits noted. Tuberculosis screening: No symptoms or risk factors identified. Fall Risk Fall in past 12 months (25 points). Secondary diagnosis (15 points) impaired mobility, cerebral palsy . No IV (0 pts). Ambulatory Aid- None/Bed Rest/Nurse Assist (0 pts). Gait- Impaired (20 pts.). Mental Status- Oriented to own ability (0 pts). Total Hamlin Fall Scale indicates Low Risk Score (25-44 pts). Fall prevention measures have been instituted. Side Rails Up X 2 Placed close to Nursing Station Frequent Obs/Assesments occuring As available Patient and Family Educated on Fall Prevention Program and strategies. Assessment: 19:20 General: Appears in no apparent distress. uncomfortable, Behavior is calm, cooperative, zb appropriate for age. Pain: Complains of pain in abdomen and epigastric area Pain currently is 8 out of 10 on a pain scale. Quality of pain is described as burning, tender, itchy. Neuro: Level of Consciousness is awake, alert, obeys commands, Oriented to person, place, situation. Cardiovascular: Patient's skin is warm and dry. Respiratory: Airway is patent is compromised Respiratory effort is even, unlabored, Respiratory pattern is regular, symmetrical. GI: No signs and/or symptoms were reported involving the gastrointestinal system. : No signs and/or symptoms were reported regarding the genitourinary system. EENT: No signs and/or symptoms were reported regarding the EENT system. Derm: Skin is intact, is healthy with good turgor, Skin is dry, Skin is normal, Skin temperature is warm. Musculoskeletal: Range of motion: limited in right and left legs left hand contracture noted. Swelling present in bilateral feet. Vital Signs: 19:16 BP 124 / 76; Pulse 82; Resp 16; Temp 97.9; Pulse Ox 100% on R/A; Pain 2/10; hb 22:22 BP 146 / 88; Pulse 65; Resp 16; Pulse Ox 100% on R/A; zb ED Course: 18:11 Patient arrived in ED. ag5 19:18 Triage completed. hb 19:18 Arm band placed on. hb 21:17 Arturo Cameron MD is Attending Physician. delfin 21:22 Alexandria Braden, ARPAN is Primary Nurse. zb 22:11 No provider procedures requiring assistance completed. Patient did not have IV access zb during this emergency room visit. 22:13 Patient has correct armband on for positive identification. Bed in low position. Call zb light in reach. Side rails up X 1. Pulse ox on. NIBP on. Door closed. Noise minimized. Warm blanket given. Administered Medications: 22:07 Drug: predniSONE 40 mg Route: PO; zb 22:10 Follow up: Response: No adverse reaction zb 22:08 Drug: Benadryl 25 mg Route: PO; zb 22:10 Follow up: Response: No adverse reaction zb 22:08 Drug: Pepcid 20 mg Route: PO; zb 22:10 Follow up: Response: No adverse reaction zb 22:08 Drug: Bactroban Ointment 2 % 1 application Route: Topical; Site: affected area; zb 22:10 Follow up: Response: No adverse reaction zb Outcome: 21:57 Discharge ordered by . delfin 22:12 Discharged to home via wheelchair. zb 22:12 Condition: stable 22:12 Discharge instructions given to patient, Instructed on discharge instructions, follow up and referral plans. medication usage, Demonstrated understanding of instructions, follow-up care, medications, Prescriptions given X 4. 22:42 Patient left the ED. hb Signatures: Arturo Cameron MD MD cha Baxter, Heather, Karina Billingsley RN 5 Alexandria Braden RN RN zb
--- NOTE | 2020-09-18 21:58 | EDPHYS ---
Physician Documentation [facility] Name: Marina Espino Age: 54 yrs Sex: Female : 1965 Arrival Date: 09/18/2020 Time: 18:11 Bed 13 Private MD: ELSA Physician Arturo Cameron HPI: 09/18 21:52 This 54 yrs old Female presents to ER via Wheelchair with complaints of Rash. delfin 21:52 The patient's rash thought to be caused by Dermatitis Contact allergy. The rash is delfin located on the epigastric area, right upper quadrant and left upper quadrant. The rash can be described as erythematous, raised. Onset: The symptoms/episode began/occurred 4 day(s) ago. Associated signs and symptoms: Pertinent positives: itching. Severity of symptoms: At their worst the symptoms were mild in the emergency department the symptoms are unchanged. It is unknown whether or not the patient has had similar symptoms in the past. Historical: - Allergies: 19:18 PENICILLINS; hb - Home Meds: 19:18 clorazepate dipotassium 7.5 mg Oral tab 1 tab qhs p rn [Active]; paroxetine HCl 12.5 mg hb Oral Tb24 1 tab once daily [Active]; pravastatin 20 mg Oral tab 1 tab nightly [Active]; zolpidem 10 mg Oral tab 1 tab once daily [Active]; - PMHx: 19:18 Anxiety; Cerebral Palsy; Depression; Hyperlipidemia; hb - PSHx: 19:18 Hysterectomy; Appendectomy; hb - Immunization history:: Adult Immunizations up to date. - Social history:: Smoking status: Patient denies any tobacco usage or history of. - Family history:: not pertinent. ROS: 21:52 Constitutional: Negative for fever, chills, and weight loss, Eyes: Negative for injury, delfin pain, redness, and discharge, ENT: Negative for injury, pain, and discharge, Neck: Negative for injury, pain, and swelling, Cardiovascular: Negative for chest pain, palpitations, and edema, Respiratory: Negative for shortness of breath, cough, wheezing, and pleuritic chest pain, Abdomen/GI: Negative for abdominal pain, nausea, vomiting, diarrhea, and constipation, Back: Negative for injury and pain, : Negative for injury, bleeding, discharge, and swelling, MS/Extremity: Negative for injury and deformity, Neuro: Negative for headache, weakness, numbness, tingling, and seizure, Psych: Negative for depression, anxiety, suicide ideation, homicidal ideation, and hallucinations, Allergy/Immunology: Negative for hives, rash, and allergies, Endocrine: Negative for neck swelling, polydipsia, polyuria, polyphagia, and marked weight changes, Hematologic/Lymphatic: Negative for swollen nodes, abnormal bleeding, and unusual bruising. 21:52 Skin: Positive for rash, of the epigastric area, right upper quadrant and left upper quadrant. Exam: 21:52 Constitutional: This is a well developed, well nourished patient who is awake, alert, delfin and in no acute distress. Head/Face: Normocephalic, atraumatic. Eyes: Pupils equal round and reactive to light, extra-ocular motions intact. Lids and lashes normal. Conjunctiva and sclera are non-icteric and not injected. Cornea within normal limits. Periorbital areas with no swelling, redness, or edema. ENT: Nares patent. No nasal discharge, no septal abnormalities noted. Tympanic membranes are normal and external auditory canals are clear. Oropharynx with no redness, swelling, or masses, exudates, or evidence of obstruction, uvula midline. Mucous membranes moist. Neck: Trachea midline, no thyromegaly or masses palpated, and no cervical lymphadenopathy. Supple, full range of motion without nuchal rigidity, or vertebral point tenderness. No Meningismus. Chest/axilla: Normal chest wall appearance and motion. Nontender with no deformity. No lesions are appreciated. Cardiovascular: Regular rate and rhythm with a normal S1 and S2. No gallops, murmurs, or rubs. Normal PMI, no JVD. No pulse deficits. Respiratory: Lungs have equal breath sounds bilaterally, clear to auscultation and percussion. No rales, rhonchi or wheezes noted. No increased work of breathing, no retractions or nasal flaring. Abdomen/GI: Soft, non-tender, with normal bowel sounds. No distension or tympany. No guarding or rebound. No evidence of tenderness throughout. Back: No spinal tenderness. No costovertebral tenderness. Full range of motion. MS/ Extremity: Pulses equal, no cyanosis. Neurovascular intact. Full, normal range of motion. Neuro: Awake and alert, GCS 15, oriented to person, place, time, and situation. Cranial nerves II-XII grossly intact. Motor strength 5/5 in all extremities. Sensory grossly intact. Cerebellar exam normal. Normal gait. Psych: Awake, alert, with orientation to person, place and time. Behavior, mood, and affect are within normal limits. 21:52 Skin: Appearance: Color: normal in color, Temperature: normal temperature, abscess, not appreciated, cellulitis, is not appreciated, induration, is not appreciated, injury, is not appreciated, rash can be described as erythematous, nonspecific, raised. Vital Signs: 19:16 BP 124 / 76; Pulse 82; Resp 16; Temp 97.9; Pulse Ox 100% on R/A; Pain 2/10; hb 22:22 BP 146 / 88; Pulse 65; Resp 16; Pulse Ox 100% on R/A; zb MDM: 21:17 Patient medically screened. [facility] 21:55 Differential diagnosis: impetigo, allergic reaction. Data reviewed: vital signs, nurses [facility] notes. Data interpreted: property assessment monitor: rate is 82 beats/min, rhythm is regular, Pulse oximetry: on room air is 100 %. Counseling: I had a detailed discussion with the patient and/or guardian regarding: the historical points, exam findings, and any diagnostic results supporting the discharge/admit diagnosis. 09/18 21:52 Order name: Ice pack; Complete Time: 22:23 [facility] Administered Medications: 22:07 Drug: predniSONE 40 mg Route: PO; zb 22:10 Follow up: Response: No adverse reaction zb 22:08 Drug: Benadryl 25 mg Route: PO; zb 22:10 Follow up: Response: No adverse reaction zb 22:08 Drug: Pepcid 20 mg Route: PO; zb 22:10 Follow up: Response: No adverse reaction zb 22:08 Drug: Bactroban Ointment 2 % 1 application Route: Topical; Site: affected area; zb 22:10 Follow up: Response: No adverse reaction Disposition: 09/18/20 21:57 Discharged to Home. Impression: Dermatitis, unspecified, Allergic contact dermatitis. - Condition is Stable. - Discharge Instructions: Contact Dermatitis, Rash, Rash, [id number], Contact Dermatitis, Tovo-ma-Ctif. - Prescriptions for Bactroban 2 % Topical Ointment - Apply to affected area 1 application by TOPICAL route every 12 hours; 15 gram. Benadryl 25 mg Oral Capsule - take 1 capsule by ORAL route every 6 hours As needed; 30 tablet. Pepcid 20 mg Oral Tablet - take 1 tablet by ORAL route every 12 hours for 10 days; 20 tablet. Prednisone 20 mg Oral Tablet - take 1 tablet by ORAL route once daily for 5 days; 5 tablet. - Medication Reconciliation Form, Thank You Letter, Antibiotic Education, Prescription Opioid Use form. - Follow up: Private Physician; When: 2 - 3 days; Reason: Recheck today's complaints, Continuance of care, Re-evaluation by your physician. - Problem is new. - Symptoms have improved. Signatures: Arturo Cameron MD MD cha Baxter, Heather, ARPAN RN Alexandria Mijares RN RN zb Corrections: (The following items were deleted from the chart) 22:42 21:57 09/18/2020 21:57 Discharged to Home. Impression: Dermatitis, unspecified; hb Allergic contact dermatitis. Condition is Stable. Forms are Medication Reconciliation Form, Thank You Letter, Antibiotic Education, Prescription Opioid Use. Follow up: Private Physician; When: 2 - 3 days; Reason: Recheck today's complaints, Continuance of care, Re-evaluation by your physician. Problem is new. Symptoms have improved. delfin
[2020-09-18] MEDS ORDERED: predniSONE 20 MG TAB ONE (22:14)
[2020-09-18] MEDS ORDERED: DIPHENHYDRAMINE 25 MG TAB/CAP ONE (22:14)
[2020-09-18] MEDS ORDERED: FAMOTIDINE 20 MG TAB ONE (22:14)
[2020-09-18] MEDS ORDERED: MUPIROCIN 2% OINT 22GM TUBE TOP ONE (22:14)
[2020-09-18 22:57] VITALS: TEMP 97.9; O2SAT 100
[2020-09-18 22:58] VITALS: BP 146/88
== END 2020-09-18 22:42 | disposition home or self-care (01) ==
LOC: ER 18:08
DX: L23.9 Allergic contact dermatitis, unspecified cause (principal); Z88.0 Allergy status to penicillin; E78.5 Hyperlipidemia, unspecified; F41.8 Other specified anxiety disorders
CPT/HCPCS: 99283; J7512

== ENCOUNTER 2022-09-25 17:31 | Emergency (ER) | payer OTHER ==
[2022-09-25 18:02] LABS: Urine Blood 2+ (Negative); Urine Glucose Negative (Negative); Urine Protein Negative (Negative); Urine pH 6.5 (5.0-7.0)
[2022-09-25 18:06] LABS: Absolute Lymphocytes (CBC) 2.3 K/uL (0.7-4.9); Lymphocytes % 34.3 % (15.3-44.8); MCV 86.4 fL (80-100); MPV 8.2 fL (7.6-11.3); RBC Red Blood Cell Count 4.86 M/uL (3.86-4.86)
[2022-09-25 18:12] LABS: Urine Bacteria None Seen /HPF (<20); Urine Mucus Slight /HPF (None Seen)
[2022-09-25 18:23] LABS: Magnesium 2.3 mg/dL (1.6-2.4); Potassium 3.6 mmol/L (3.5-5.1); Troponin High Sensitivity 4.3 pg/mL (<58.9)
--- NOTE | 2022-09-25 18:23 | RAD REPORT ---
EXAM DESCRIPTION: RAD - Chest Single View - 09/25/2022 6:16 pm CLINICAL HISTORY: weakness COMPARISON: Two view chest 07/02/2018 TECHNIQUE: AP portable chest image was obtained 09/25/2022 6:16 pm . FINDINGS: Lung volumes are low accentuating the baseline interstitial pattern. No mass or consolidat ions seen. Interstitial pattern is not clearly different when adjusting for the low lung volumes. No significant failure or volume overload. Heart and vasculature are normal. No measurable pleural effusion and no pneumothorax. No acute bony abnormality seen. No acute aortic findings suspected. IMPRESSION: Limited portable study without acute cardiopulmonary finding.
[2022-09-25] MEDS ORDERED: NA CHLORIDE 0.9% 500 ML ONE (18:28)
[2022-09-25] MEDS ORDERED: NA CHLORIDE 0.9% 1,000 ML ONE (18:46)
--- NOTE | 2022-09-25 19:33 | EDPHYS ---
Physician Documentation [facility] Name: Marina Espino Age: 56 yrs Sex: Female : 1965 Arrival Date: 09/25/2022 Time: 17:32 Bed 8 Private MD: ED Physician Josiah Miller HPI: 09/25 17:50 This 56 yrs old Female presents to ER via EMS with complaints of General Weakness. cp Historical: - Allergies: 17:36 PENICILLINS; ss - Home Meds: 17:36 clorazepate dipotassium 7.5 mg Oral tab 1 tab qhs p rn [Active]; paroxetine HCl 12.5 mg ss Oral Tb24 1 tab once daily [Active]; pravastatin 20 mg Oral tab 1 tab nightly [Active]; zolpidem 10 mg Oral tab 1 tab once daily [Active]; - PMHx: 17:36 Anxiety; Cerebral Palsy; Depression; Hyperlipidemia; ss - Immunization history:: Client reports receiving the 2nd dose of the Covid vaccine. - Social history:: Smoking status: Patient denies any tobacco usage or history of. ROS: 18:00 Constitutional: Positive for poor PO intake, Negative for body aches, chills, fever. cp 18:00 Cardiovascular: Negative for chest pain. cp 18:00 Respiratory: Negative for cough, shortness of breath, wheezing. 18:00 Eyes: Negative for injury, pain, redness, and discharge. cp 18:00 ENT: Negative for drainage from ear(s), ear pain, sore throat, difficulty swallowing, difficulty handling secretions. 18:00 Abdomen/GI: Negative for abdominal pain, nausea, vomiting, and diarrhea, constipation, black/tarry stool, rectal bleeding. 18:00 : Negative for urinary symptoms. cp 18:00 Skin: Negative for cellulitis, rash. 18:00 Neuro: Positive for syncope, weakness. 18:00 All other systems are negative. Exam: 18:05 Constitutional: The patient appears in no acute distress, alert, awake, cp non-diaphoretic, non-toxic, well developed, well nourished. 18:05 Head/Face: Normocephalic, atraumatic. cp 18:05 Eyes: Periorbital structures: appear normal, Conjunctiva: normal, no exudate, no injection, Sclera: no appreciated abnormality, Lids and lashes: appear normal, bilaterally. 18:05 ENT: External ear(s): are unremarkable, Nose: is normal, Mouth: Lips: dry, Oral mucosa: dry, Posterior pharynx: Airway: no evidence of obstruction, patent, swelling, is not appreciated, erythema, is not appreciated, exudate, is not appreciated. 18:05 Neck: ROM/movement: is normal, is supple, without pain, no range of motions limitations, no meningismus. 18:05 Chest/axilla: Inspection: normal. 18:05 Cardiovascular: Rate: normal, Rhythm: regular, Edema: is not appreciated, JVD: is not appreciated. 18:05 Respiratory: the patient does not display signs of respiratory distress, Respirations: normal, no use of accessory muscles, no retractions, labored breathing, is not present, Breath sounds: are clear throughout, no decreased breath sounds, no stridor, no wheezing. 18:05 Abdomen/GI: Inspection: abdomen appears normal, Bowel sounds: active, all quadrants, Palpation: abdomen is soft and non-tender, in all quadrants. 18:05 Back: CVA tenderness, is absent. 18:05 Skin: cellulitis, is not appreciated, no rash present. 18:05 Neuro: Orientation: is normal, Mentation: is normal, Motor: lower extremity paralysis. 18:10 ECG was reviewed by the Attending Physician. cp Vital Signs: 17:33 BP 119 / 61; Pulse 77; Resp 16; Temp 97.3(TE); Pulse Ox 98% on R/A; Weight 61.69 kg; ss Pain 0/10; 18:54 BP 111 / 61; Pulse 71; Pulse Ox 99% on R/A; ll1 19:00 BP 114 / 63; Pulse 70; Resp 15; Temp 98.3; Pulse Ox 100% on R/A; Pain 0/10; pf1 20:00 BP 106 / 65; Pulse 68; Resp 14; Temp 98; Pulse Ox 100% on R/A; Pain 0/10; pf1 MDM: 17:36 Patient medically screened. cp 18:00 Differential Diagnosis sepsis, flu, uti, electrolyte abnormality, cardiac arrythmia. cp 19:32 Data reviewed: vital signs, nurses notes, lab test result(s), EKG, radiologic studies, cp plain films. 19:32 Consideration of Admission/Observation Escalation of care including cp admission/observation considered. Test considered but Not performed: Other Details CT chest/abdomen. Historians other than the Patient: Family Member: significant other. Care significantly affected by the following chronic conditions: cerebral palsy . Counseling: I had a detailed discussion with the patient and/or guardian regarding: the historical points, exam findings, and any diagnostic results supporting the discharge/admit diagnosis, lab results, radiology results, to return to the emergency department if symptoms worsen or persist or if there are any questions or concerns that arise at home. Response to treatment: the patient's symptoms have mildly improved after treatment, and as a result, I will discharge patient. 09/25 17:46 Order name: Basic Metabolic Panel; Complete Time: 18:28 cp 09/25 18:29 Interpretation: Normal except: BUN 27; CRE 1.45; GFR 42. cp 09/25 17:46 Order name: CBC with Diff; Complete Time: 18:28 cp 09/25 17:46 Order name: Magnesium; Complete Time: 18:28 cp 09/25 17:46 Order name: Troponin HS; Complete Time: 18:28 cp 09/25 17:47 Order name: Urine Microscopic Only; Complete Time: 18:28 cp 09/25 19:24 Interpretation: Normal except: URBC 11-20. cp 09/25 18:02 Order name: Urine Dipstick-Ancillary; Complete Time: 18:28 EDMS 09/25 19:31 Interpretation: Normal except: UBLD 2+. cp 09/25 17:46 Order name: XRAY Chest (1 view); Complete Time: 18:28 cp 09/25 17:47 Order name: EKG; Complete Time: 17:49 cp 09/25 17:47 Order name: Cardiac monitoring; Complete Time: 17:57 cp 09/25 17:47 Order name: EKG - Nurse/Tech; Complete Time: 17:57 cp 09/25 17:47 Order name: IV Saline Lock; Complete Time: 17:48 cp 09/25 17:47 Order name: Labs collected and sent; Complete Time: 17:48 cp 09/25 17:47 Order name: O2 Per Protocol; Complete Time: 17:48 cp 09/25 17:47 Order name: O2 Sat Monitoring; Complete Time: 17:48 cp 09/25 17:47 Order name: Urine Dipstick-Ancillary (obtain specimen); Complete Time: 17:57 cp 09/25 17:47 Order name: Cath; Complete Time: 17:57 cp 09/25 18:30 Order name: PO challenge; Complete Time: 18:54 cp EC:10 Rate is 73 beats/min. Rhythm is regular. IL interval is normal. QRS interval is normal. cp QT interval is normal. T waves are Inverted in lead aVR. Interpreted by me. Reviewed by me. Administered Medications: 18:25 Drug: NS 0.9% 500 ml Route: IV; Rate: bolus; Site: left antecubital; ss 18:54 Follow up: Response: No adverse reaction; IV Status: Completed infusion; IV Intake: ll1 500ml 18:53 Drug: NS 0.9% 1000 ml Route: IV; Rate: 1 bolus; Site: right antecubital; ll1 20:00 Follow up: IV Status: Completed infusion; IV Intake: 1000ml pf1 Disposition: 19:16 Co-signature as Attending Physician, Josiah Miller DO I was immediately available on-site ms3 in the Emergency Department for consultation in the care of the patient. Disposition Summary: 09/25/22 19:32 Discharge Ordered Location: Home cp Problem: new cp Symptoms: have improved cp Condition: Stable cp Diagnosis - Weakness cp Followup: cp - With: Private Physician - When: 2 - 3 days - Reason: Recheck today's complaints Discharge Instructions: - Discharge Summary Sheet cp - Weakness cp Forms: - Medication Reconciliation Form cp - Thank You Letter cp - Antibiotic Education cp - Prescription Opioid Use cp Signatures: Dispatcher [employer] EDGabby Jarvis RN RN Arturo Acevedo PA PA cp Tavo Schulz, RN RN ll1 Josiah Miller DO DO ms3 Mirian marrero RN pf1
--- NOTE | 2022-09-25 19:33 | ER ---
Nurse's Notes [facility] Name: Marina Espino Age: 56 yrs Sex: Female : 1965 Arrival Date: 09/25/2022 Time: 17:32 Bed 8 Private MD: Diagnosis: Weakness Presentation: 09/25 17:33 Chief complaint: Patient states: Generalized weakness/ fatigue x 4 days. Also c/o ss decreased appetite and R ear pain. Coronavirus screen: Client denies travel out of the [place] in the last 14 days. Ebola Screen: Patient denies exposure to infectious person. Patient denies travel to an Ebola-affected area in the 21 days before illness onset. Initial Sepsis Screen: Does the patient meet any 2 criteria? No. Patient's initial sepsis screen is negative. Does the patient have a suspected source of infection? No. Patient's initial sepsis screen is negative. Risk Assessment: Do you want to hurt yourself or someone else? Patient reports no desire to harm self or others. Onset of symptoms was August 21, 2023. 17:33 Method Of Arrival: EMS: [facility] 17:33 Acuity: GERRI 3 ss Historical: - Allergies: 17:36 PENICILLINS; ss - Home Meds: 17:36 clorazepate dipotassium 7.5 mg Oral tab 1 tab qhs p rn [Active]; paroxetine HCl 12.5 mg ss Oral Tb24 1 tab once daily [Active]; pravastatin 20 mg Oral tab 1 tab nightly [Active]; zolpidem 10 mg Oral tab 1 tab once daily [Active]; - PMHx: 17:36 Anxiety; Cerebral Palsy; Depression; Hyperlipidemia; ss - Immunization history:: Client reports receiving the 2nd dose of the Covid vaccine. - Social history:: Smoking status: Patient denies any tobacco usage or history of. Screenin:46 [facility] ED Fall Risk Assessment (Adult) Impaired Gait Yes (1 pt) Mobility Assist ll1 Device Used Yes (1 pt) Altered Elimination Yes (1 pt) Score/Fall Risk Level 3 or more points = High Risk Oriented to surroundings, Maintained a safe environment, Educated pt \T\ family on fall prevention, incl call for assistance when getting out of bed, Hourly rounding (assess needs \T\ fall precautionary measures) done, Remained with patient while ambulating. Abuse screen: Denies threats or abuse. Nutritional screening: No deficits noted. Tuberculosis screening: No symptoms or risk factors identified. Assessment: 17:46 General: Appears in no apparent distress. Behavior is calm, cooperative, appropriate ll1 for age. Pain: Denies pain. Neuro: Reports weakness. Cardiovascular: Reports fatigue. GI: Reports decreased appetite. 18:20 Reassessment: No changes from previously documented assessment. Patient and/or family ll1 updated on plan of care and expected duration. Pain level reassessed. 18:54 Reassessment: No changes from previously documented assessment. Patient and/or family ll1 updated on plan of care and expected duration. Pain level reassessed. Patient is alert, oriented x 3, equal unlabored respirations, skin warm/dry/pink. 19:30 General: Appears in no apparent distress. comfortable, well groomed, well developed, pf1 Behavior is calm, cooperative, appropriate for age. 19:30 Pain: Denies pain. Neuro: Level of Consciousness is awake, alert, obeys commands, pf1 Oriented to person, place, time, situation, Reports weakness. Cardiovascular: Capillary refill < 3 seconds Patient's skin is warm and dry. Respiratory: No deficits noted. Airway is patent Trachea midline Respiratory effort is even, unlabored, Respiratory pattern is regular, symmetrical, Breath sounds are clear bilaterally. GI: No deficits noted. : No deficits noted. No signs and/or symptoms were reported regarding the genitourinary system. EENT: No deficits noted. No signs and/or symptoms were reported regarding the EENT system. Vital Signs: 17:33 BP 119 / 61; Pulse 77; Resp 16; Temp 97.3(TE); Pulse Ox 98% on R/A; Weight 61.69 kg; ss Pain 0/10; 18:54 BP 111 / 61; Pulse 71; Pulse Ox 99% on R/A; ll1 19:00 BP 114 / 63; Pulse 70; Resp 15; Temp 98.3; Pulse Ox 100% on R/A; Pain 0/10; pf1 20:00 BP 106 / 65; Pulse 68; Resp 14; Temp 98; Pulse Ox 100% on R/A; Pain 0/10; pf1 ED Course: 17:32 Patient arrived in ED. ss 17:33 Arturo Acevedo PA is PHCP. cp 17:33 Josiah Miller DO is Attending Physician. cp 17:35 Inserted saline lock: 22 gauge in left antecubital area, using aseptic technique. Blood ll1 collected. 17:36 Triage completed. ss 17:36 Tavo Schulz, RN is Primary Nurse. ll1 17:36 Arm band placed on right wrist. ss 17:47 Patient has correct armband on for positive identification. Bed in low position. Call ll1 light in reach. Client placed on continuous cardiac and pulse oximetry monitoring. NIBP monitoring applied. 17:57 Urine Microscopic Only Sent. ll1 18:17 XRAY Chest (1 view) In Process Unspecified. EDMS 20:10 No provider procedures requiring assistance completed. IV discontinued, intact, pf1 bleeding controlled, No redness/swelling at site. Pressure dressing applied. Administered Medications: 18:25 Drug: NS 0.9% 500 ml Route: IV; Rate: bolus; Site: left antecubital; ss 18:54 Follow up: Response: No adverse reaction; IV Status: Completed infusion; IV Intake: ll1 500ml 18:53 Drug: NS 0.9% 1000 ml Route: IV; Rate: 1 bolus; Site: right antecubital; ll1 20:00 Follow up: IV Status: Completed infusion; IV Intake: 1000ml pf1 Medication: 17:47 VIS not applicable for this client. ll1 Intake: 18:54 IV: 500ml; Total: 500ml. ll1 20:00 IV: 1000ml; Total: 1500ml. pf1 Outcome: 19:32 Discharge ordered by MD. cp 20:12 Discharged to home via wheelchair, with family. pf1 20:12 Condition: improved 20:12 Discharge instructions given to patient, family, Instructed on discharge instructions, follow up and referral plans. Demonstrated understanding of instructions, follow-up care. 20:12 Patient left the ED. pf1 Signatures: Dispatcher [employer] EDIN Gabby Ozuna RN RN Arturo Lyn PA PA cp Lewis, Lynsay, RN RN ll1 Mirian marrero RN RN pf1
[2022-09-25 21:11] VITALS: O2SAT 100
[2022-09-25 21:12] VITALS: BP 106/65; TEMP 98
--- NOTE | 2022-09-28 16:59 | EKG ---
Test Date: 2022-09-25 Test Time: 18:03:03 Lube Worker: SUDARSHAN MEASUREMENT RESULTS: Intervals: Rate: 73 AR: 154 QRSD: 80 QT: 412 QTc: 453 [place]: P: 58 AR: 154 QRS: 88 T: 60 INTERPRETIVE STATEMENTS: Normal sinus rhythm Normal ECG Compared to ECG 04/17/2018 21:14:35 Sinus bradycardia no longer present ST (T wave) deviation no longer present Electronically Signed On 09-28-22 16:56:03 DEVELOPMENT MANAGER by Tommy Sutherland
== END 2022-09-25 20:12 | disposition home or self-care (01) ==
LOC: ER 17:31
DX: R53.1 Weakness (principal); R55 Syncope and collapse; F41.9 Anxiety disorder, unspecified; E78.5 Hyperlipidemia, unspecified; G80.9 Cerebral palsy, unspecified; Z88.0 Allergy status to penicillin
CPT/HCPCS: 96361; 93005; 85025; 80048; 36415; 83735; 84484; 71045; 96360; 99284; J7040; J7030; 81003; 81015

== ENCOUNTER 2024-09-03 15:15 | Observation (INO) | payer OTHER ==
--- OUTSIDE RECORDS SUMMARY | 2024-09-03 15:19 | XMS REPORT | Continuity of Care Document ---
Author Name Unknown Address [address] [facility] [address] [place] [address] [facility] Address [address] [facility] [address] [place] [address] Care Team Providers Care Carpenter Railcar Name Role Phone David Carbone DO Primary Care Physician + [phone] MARIELENA VALDOVINOS Attending Clinician Unavailable Marielena Valdovinos PA-C Attending Clinician [phone] Unknown, Attending Attending Clinician UnavailMICHAEL Angeles Attending Clinician Unavailable MICHAEL ESCOBEDO Attending Clinician Unavailable Andrae Woody MD Attending Clinician [phone] Micheal Escobedo DO Attending Clinician +[phone] MAGDY CAMARENA Attending Clinician Unavailable Magdy Camarena MD Attending Clinician [phone] Kamaljit Walsh Attending Clinician +[phone] Unknown, Attending Attending Clinician Unavailab jennifer UNKNOWN, ATTENDING Attending Clinician Unavailab KAMALJIT Jeronimo Attending Clinician Unavailable BARTOLOME DUMONT Attending Clinician Unavailable Bartolome Dumont MD Attending Clinician [phone] Doctor Unassigned, [facility] Attending Clinician U navailable Glo Alexis Attending Clinician [phone] GLO ABRAHAM Attending Clinician Unavailable Suresh Atwood Attending Clinician + [phone] SURESH BUNDY Attending Clinician Unavaila DEEPAK Vidal Attending Clinician Unavailab Deepak Muse Attending Clinician + [phone] Katie Paz Attending Clinician [phone] ANDRAE WOODY Admitting Clinician Unavailable BARTOLOME DUMONT Admitting Clinician Unavailable DEEPAK BARTON Admitting Clinician Unavailab le Payers Payer Name Policy Type Policy Number Effective Date Expirati on Date Source MEDICARE PART A \T\ [id number] 2006 00:00:00 [place] [id number] 2011 00:00:00 Problems Condition Name Condition Details Condition Category Status Onset Date Resolution Date Last Treatment Date Treating Clinician Comments Source Essential hypertensi on Essential hypertensi on Disease Active 11-25 00:00: 00 [facility] Bilateral lower extremity edema Bilateral lower extremity edema Disease Active 11-25 00:00: 00 [facility] Screening examinatio n for STD (sexually transmitte d disease) Screening examinatio n for STD (sexually transmitte d disease) Disease Active 05-31 00:00: 00 [facility] H/O total hysterecto my H/O total hysterecto my Disease Active 05-31 00:00: 00 [facility] Depression , unspecifie d depression type Depression , unspecifie d depression type Disease Active 05-31 00:00: 00 [facility] Generalize d anxiety disorder Generalize d anxiety disorder Disease Active 05-31 00:00: 00 [facility] Obesity, unspecifie d Obesity, unspecifie d Disease Active 05-31 00:00: 00 [facility] BMI 32.0-32.9, adult BMI 32.0-32.9, adult Disease Active 05-31 00:00: 00 [facility] Cerebral palsy, unspecifie d type Cerebral palsy, unspecifie d type Disease Active 05-31 00:00: 00 [facility] Encounter for routine gynecologi mallorie examinatio n Encounter for routine gynecologi mallorie examinatio n Disease Recurre nce 2015-0 12-27 00:00: 00 Overview: Formattin g of this note might be different from the original. 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 [facility] Other specified disorder of intestines Other specified disorder of intestines Disease Active 2005-09 00:00: 00 [facility] Other specified infantile cerebral palsy Other specified infantile cerebral palsy Disease Active 2005-09 00:00: 00 [facility] Allergies, Adverse Reactions, Alerts Allergy Name Allergy Type Status Severity Reaction(s) Onset Date Inactive Date Treating Clinician Comments Source PENICILL INS Drug Class Active Rash 2005-09 00:00: 00 [facility] Penicill ins Propensi ty to adverse reaction s to drug Active Swelling 2005-09 00:00: 00 [facility] Social History Social Habit Start Date Stop Date Quantity Comments Source [facility] of Social function 2024-09-01 00:00:00 2024-09-01 00:00:00 [facility] Alcoholic beverage intake 2024-09-01 00:00:00 2024-09-01 00:00:00 Current non-drinker of alcohol (finding) [facility] Alcohol intake 2023-11-26 00:00:00 2023-11-26 00:00:00 Current non-drinker of alcohol (finding) [facility] Exposure to SARS-CoV-2 (event) 2022-09-20 00:00:00 2022-09-30 20:30:00 Not sure [facility] Tobacco use and exposure 2022-05-25 00:00:00 2022-05-25 00:00:00 Smokeless tobacco non-user [facility] Sex assigned at 1965 00:00:00 1965 00:00:00 [facility] Smoking Status Start Date Stop Date Source Never smoked tobacco [facility] Medications Ordered Medication Name Filled Medication Name Start Date Stop Date Current Medication? Ordering Clinician Indication Dosage Frequency Signature (SIG) Comments Components Source bromphenira mine-pseudo ephedrine-D M 2-30-10 mg/5 mL syrup 2023-09 00:00: 00 09-09 05:59 :00 Yes [id number] 10mL Take 10 mL by mouth 4 (four) times daily as needed for Congestion /Allergies for up to 7 days. [facility] oseltamivir (TAMIFLU) 75 mg capsule 2023-09 00:00: 00 09-07 05:59 :00 Yes [id number] 75mg Take 1 capsule by mouth in the morning and 1 capsule in the evening. Do all this for 5 days. [facility] glycerin/mi neral oil (AGLO ENEMA) (COMPOUNDED ) Enem 225 mL 05-15 00:15: 00 05-14 23:40 :00 No 225mL 225 mL, Rectal, ONCE, 1 dose, On 05/14/24 at 1915, Routine [facility] NaCl 0.9% (NS) bolus infusion 1,000 mL 05-14 22:30: 00 05-14 23:57 :00 No 1000mL at 999 mL/hr, 1,000 mL, IV Infusion, ONCE, 1 dose, On 05/14/24 at 1730, MANA [facility] iopamidol (ISOVUE 370-500 mL) injection 85 mL 05-14 22:00: 00 05-14 22:15 :00 No [id number] 85mL 85 mL, Intravenou s, ONCE, 1 dose, On 05/14/24 at 1715, Routine [facility] ciprofloxac in-dexameth asone 0.3-0.1 % otic drops 04-21 00:00: 00 Yes [id number] 42692 4[drp] Place 4 Drops in right ear in the morning and 4 Drops in the evening. [facility] sulfamethox azole-trime thoprim (BACTRIM DS) 800-160 mg per tablet 03-27 00:00: 00 04-04 04:59 :00 No [id number] 1{tbl} Take 1 tablet by mouth in the morning and 1 tablet in the evening. Do all this for 7 days. [facility] cefdinir 300 mg capsule 2022-09 00:00: 00 09-14 05:59 :00 No [id number] 600mg Take 2 capsules by mouth in the morning for 10 days. [facility] cefTRIAXone (ROCEPHIN) injection 1,000 mg 10-01 05:45: 00 10-01 05:54 :00 No 1000mg 1,000 mg, Intramuscu lar, ONCE, 1 dose, On Wed09/30/22 at 2345, STAT
Re ason for Anti-Infec tive: Documented Infection< br>Documen mary Infection Site: Urine
D uration of Therapy: Other (see Comments) [facility] cefUROXime 500 mg tablet 09-30 00:00: 00 10-06 05:59 :00 No [id number] 500mg Take 1 tablet by mouth in the morning and 1 tablet in the evening. Do all this for 5 days. [facility] clorazepate (TRANXENE) 7.5 mg tablet 05-25 13:34: 39 Yes 7.5mg Take 7.5 mg by mouth 3 (three) times daily. [facility] pravastatin (PRAVACHOL) 20 mg tablet 05-25 13:34: 39 Yes 20mg Take 20 mg by mouth at bedtime. [facility] zolpidem (AMBIEN) 10 mg tablet 05-25 13:34: 39 Yes 10mg Take 10 mg by mouth at bedtime as needed for Insomnia. [facility] paroxetine CR 12.5 mg 24 hr tablet 03-18 00:00: 00 Yes 12.5mg Take 12.5 mg by mouth daily. [facility] DOCUSATE CALCIUM 240 MG ORAL CAP 2005-09 00:00: 00 Yes 1 Cap Oral DAILY [facility] Vital Signs Vital Name Observation Time Observation Value Comments S argenis Systolic blood pressure 2024-09-01 16:23:00 100 mm[Hg] [facility] Diastolic blood pressure 2024-09-01 16:23:00 65 mm[Hg] [facility] Heart rate 2024-09-01 16:23:00 90 /min [facility] Body temperature 2024-09-01 16:23:00 36.61 Pat [facility] Body height 2024-09-01 16:23:00 144.8 cm [facility] Body weight 2024-09-01 16:23:00 61.236 kg [facility] BMI 2024-09-01 16:23:00 29.21 kg/m2 [facility] Oxygen saturation in Arterial blood by Pulse oximetry 2024-09-01 16:23:00 98 /min [facility] Systolic blood pressure 2024-05-15 01:00:00 116 mm[Hg] [facility] Diastolic blood pressure 2024-05-15 01:00:00 67 mm[Hg] [facility] Heart rate 2024-05-15 01:00:00 59 /min [facility] Body temperature 2024-05-15 01:00:00 36.89 Pat [facility] Respiratory rate 2024-05-15 01:00:00 17 /min [facility] Oxygen saturation in Arterial blood by Pulse oximetry 2024-05-15 01:00:00 96 /min [facility] Body height 2024-05-14 21:23:00 144.8 cm [facility] Body weight 2024-05-14 21:23:00 58.968 kg [facility] BMI 2024-05-14 21:23:00 28.13 kg/m2 [facility] Systolic blood pressure 2024-04-21 17:28:00 111 mm[Hg] [facility] Diastolic blood pressure 2024-04-21 17:28:00 69 mm[Hg] [facility] Heart rate 2024-04-21 17:28:00 73 /min [facility] Body temperature 2024-04-21 17:28:00 36.83 Pat [facility] Respiratory rate 2024-04-21 17:28:00 18 /min [facility] Body weight 2024-04-21 17:28:[address] [facility] BMI 2024-04-21 17:28:00 29.21 kg/m2 [facility] Oxygen saturation in Arterial blood by Pulse oximetry 2024-04-21 17:28:00 95 /min [facility] Systolic blood pressure 2024-03-27 22:46:00 117 mm[Hg] [facility] Diastolic blood pressure 2024-03-27 22:46:00 69 mm[Hg] [facility] Heart rate 2024-03-27 22:46:00 54 /min [facility] Body temperature 2024-03-27 22:46:00 36.5 Pat [facility] Respiratory rate 2024-03-27 22:46:00 16 /min [facility] Body weight 2024-03-27 22:46:[address] [facility] BMI 2024-03-27 22:46:00 29.21 kg/m2 [facility] Oxygen saturation in Arterial blood by Pulse oximetry 2024-03-27 22:46:00 99 /min [facility] Systolic blood pressure 2023-11-26 15:18:00 95 mm[Hg] [facility] Diastolic blood pressure 2023-11-26 15:18:00 60 mm[Hg] [facility] Heart rate 2023-11-26 15:18:00 82 /min [facility] Respiratory rate 2023-11-26 15:18:00 18 /min [facility] Body height 2023-11-26 15:18:[address] [facility] Body weight 2023-11-26 15:18:[address] [facility] BMI 2023-11-26 15:18:00 29.43 kg/m2 [facility] Oxygen saturation in Arterial blood by Pulse oximetry 2023-11-26 15:18:00 94 /min [facility] Systolic blood pressure 2023-09-03 21:07:00 112 mm[Hg] [facility] Diastolic blood pressure 2023-09-03 21:07:00 71 mm[Hg] [facility] Heart rate 2023-09-03 21:07:00 68 /min [facility] Body temperature 2023-09-03 21:07:00 36.33 Pat [facility] Respiratory rate 2023-09-03 21:07:00 18 /min [facility] Body height 2023-09-03 21:07:00 144.8 cm [facility] Body weight 2023-09-03 21:07:00 61.236 kg [facility] BMI 2023-09-03 21:07:00 29.21 kg/m2 [facility] Oxygen saturation in Arterial blood by Pulse oximetry 2023-09-03 21:07:00 92 /min [facility] Systolic blood pressure 2022-10-01 06:00:00 112 mm[Hg] [facility] Diastolic blood pressure 2022-10-01 06:00:00 81 mm[Hg] [facility] Heart rate 2022-10-01 06:00:00 72 /min [facility] Respiratory rate 2022-10-01 06:00:00 18 /min [facility] Oxygen saturation in Arterial blood by Pulse oximetry 2022-10-01 06:00:00 91 /min [facility] Body temperature 2022-10-01 02:31:00 37.39 Pat [facility] Body height 2022-10-01 02:31:00 152.4 cm [facility] Body weight 2022-10-01 02:31:00 70.761 kg [facility] BMI 2022-10-01 02:31:00 30.47 kg/m2 [facility] Systolic blood pressure 2022-09-22 19:35:00 111 mm[Hg] [facility] Diastolic blood pressure 2022-09-22 19:35:00 74 mm[Hg] [facility] Heart rate 2022-09-22 19:35:00 74 /min [facility] Body temperature 2022-09-22 19:35:00 36.89 Pat [facility] Respiratory rate 2022-09-22 19:35:00 18 /min [facility] Body weight 2022-09-22 19:35:00 66.225 kg [facility] BMI 2022-09-22 19:35:00 31.59 kg/m2 [facility] Oxygen saturation in Arterial blood by Pulse oximetry 2022-09-22 19:35:00 97 /min [facility] Systolic blood pressure 2022-05-25 18:18:00 91 mm[Hg] [facility] Diastolic blood pressure 2022-05-25 18:18:00 72 mm[Hg] [facility] Heart rate 2022-05-25 18:18:00 83 /min [facility] Body temperature 2022-05-25 18:18:00 36.22 Pat [facility] Respiratory rate 2022-05-25 18:18:00 18 /min [facility] Body height 2022-05-25 18:18:00 144.8 cm [facility] Body weight 2022-05-25 18:18:00 66.225 kg [facility] BMI 2022-05-25 18:18:00 31.59 kg/m2 [facility] Procedures Procedure Date / Time Performed Performing Clinician Source POCT SARS-COV-2 ANTIGEN (BINAX NOW) 2024-09-01 17:07:00 iMmi Agustin [facility] POCT MOLECULAR FLU 2024-09-01 16:34:00 Unknown, Attend [place] [facility] POCT MOLECULAR STREP 2024-09-01 16:33:00 Unknown, Atte bob [facility] URINALYSIS 2024-05-14 22:52:00 Andrae Woody [facility] CT ABDOMEN PELVIS W CONTRAST 2024-05-14 22:09:35 Andrae Woody [facility] LIPASE 2024-05-14 21:55:00 Andrae Woody [facility] COMP. METABOLIC PANEL ([id number]) 2024-05-14 21:55:00 Andrae Woody [facility] CBC WITH DIFF 2024-05-14 21:55:00 Andrae Woody [facility] POCT URINALYSIS 2024-03-27 22:52:00 Glo Abraham [facility] TRANSTHORACIC ECHO (TTE) COMPLETE 2023-12-16 18:29:19 Bartolome Dumont [facility] EKG-12 LEAD 2023-11-26 15:15:07 Doctor Unass igned, [facility] REFERRAL- REQUEST/RESPONSE 2023-10-26 06:01:00 Doctor Unassigned, [facility] ASSIGNMENT OF BENEFITS 2023-09-03 20:55:21 Docto r Unassigned, [facility] POCT URINALYSIS 2023-09-03 00:00:00 Glo Abraham [facility] URINALYSIS 2022-10-01 05:08:00 Suresh Bundy [facility] LIPASE 2022-10-01 03:16:00 Suresh Bundy [facility] BASIC METABOLIC PANEL (NA, K, CL, CO2, GLUCOSE, BUN, CREATININE, CA) 2022-10-01 03:16:00 Gregor [facility] CBC WITH DIFF 2022-10-01 03:16:00 Gregor [facility] COVID-19 (ID NOW RAPID TESTING) 2022-10-01 03:16:00 Gregor [facility] Encounters Start Date/Time End Date/Time Encounter Type Admission Type Attending Clinicians Care Facility Care Department Encounter ID Source 2024-09-01 10:20:00 2024-09-01 10:52:47 Outpatient R MARIELENA VALDOVINOS [facility] [id number] [facility] 2024-09-01 10:20:00 2024-09-01 10:52:47 Urgent Care Marielena Valdovinos Unknown, Attending [facility] 1.2.840.114 350.1.13.10 4.2.7.2.686 [id number] [facility] 2024-05-14 16:20:00 2024-05-14 21:15:00 Emergency MICHAEL RETANA TIMOTHY [facility] [id number] [facility] 2024-05-14 16:20:00 2024-05-14 21:15:00 Emergency Andrae Woody Timothy [facility] 1..840.114 350.1.13.10 4.2.7.2.686 [id number] [facility] 2024-04-21 12:00:00 2024-04-21 13:03:41 Outpatient MAGDY ALONZO [facility] [id number] [facility] 2024-04-21 12:00:00 2024-04-21 13:03:41 Urgent Care Migue Magdy Unknown, Attending [facility] 1.2.840.114 350.1.13.10 4.2.7.2.686 [id number] [facility] 2024-03-27 17:40:00 2024-03-27 18:00:00 Urgent Care Kamaljit Montoya Unknown, Attending [facility] 1.2.840.114 350.1.13.10 4.2.7.2.686 [id number] [facility] 2024-03-27 17:40:00 2024-03-27 17:40:00 Outpatient KAMALJIT LOPEZ [facility] [id number] [facility] 2023-12-16 12:49:28 2023-12-16 23:59:00 Outpatient BARTOLOME HARRIS [facility] [id number] [facility] 2023-12-16 12:49:28 2023-12-16 23:59:00 [facility] 1.840.114 350.1.13.10 4.2.7.2.686 [id number] [facility] 2023-12-08 11:00:00 2023-12-08 11:00:00 Outpatient R JULIA [facility] [id number] [facility] 2023-11-26 10:30:00 2023-11-26 10:59:53 Outpatient Noah DUMONT [facility] [id number] [facility] 2023-11-26 10:30:00 2023-11-26 10:59:53 Office Visit Julia [facility] 1.84.114 350.1.13.10 4.2.7.2.686 [id number] [facility] 2023-10-26 00:00:00 2023-10-26 00:00:00 Orders Only Doctor Unassigned, [facility] 1.840.114 350.1.13.10 4.2.7.2.686 [id number] [facility] 2023-09-03 15:00:00 2023-09-03 15:20:00 Urgent Care Glo Abraham Unknown, Attending [facility] JUAN MANUEL[facility] 1..840.114 350.1.13.10 4.2.7.2.686 [id number] [facility] 2023-09-03 15:00:00 2023-09-03 15:00:00 Outpatient GLO FOFANA [facility] [id number] [facility] 2023-09-03 00:00:00 2023-09-03 00:00:00 Orders Only Doctor Unassigned, [facility] 1.840.114 350.1.13.10 4.2.7.2.686 [id number] [facility] 2022-09-30 20:33:00 2022-10-01 01:31:00 Emergency [facility]or [facility] 1.840.114 350.1.13.10 4.2.7.2.686 [id number] [facility] 2022-09-30 20:33:00 2022-10-01 01:31:00 Emergency X [facility] ERT [id number] [facility] 2022-09-22 13:20:00 2022-09-22 13:49:20 Outpatient GLO FOFAAN [facility] [id number] [facility] 2022-09-22 13:20:00 2022-09-22 13:49:20 Urgent Care Glo Abraham Unknown, Attending [facility] 1.840.114 350.1.13.10 4.2.7.2.686 [id number] [facility] 2022-08-19 10:58:10 2022-08-19 23:59:00 Outpatient DEEPAK BIRD [facility] [id number] [facility] 2022-08-19 10:58:10 2022-08-19 23:59:00 Hospital Encounter Deepak Barton [facility] 1.840.114 350.1.13.10 4.2.7.2.686 [id number] [facility] 2022-07-08 00:00:00 2022-07-08 00:00:00 Outpatient DEEPAK BIRD [facility] [id number] [facility] 2022-05-25 13:00:00 2022-05-25 14:00:23 Outpatient R SUKHJINDER BARTONKATHLEENDesiree [facility] [id number] [facility] 2022-05-25 13:00:00 2022-05-25 14:00:23 Office Visit Margarito Deepak Rivero Katie Juan Miguel [facility] STUDY SPECIALIST [facility] 1.2.840.114 350.1.13.10 4.2.7.2.686 [id number] [facility] Results Test Description Test Time Test Comments Results Result Co mments Source [facility] MOLECULAR [id number] 16:40:41* Test Item Value Reference Range Interpretation Comme nts POCT Molecular Strep (test c ode = 73229-6) Negative Negative Lab Interpretation (test cod e = 17203-4) Normal [facility] Molecular [id number] 16:38:40* Test Item Value Reference Range Interpretation Comme nts POCT Molecular FluA (test co de = 85122-1) Positive Negative A Lab Interpretation (test cod e = 00493-1) [facility] [id number] 22:31:41CT ABDOMEN PELVIS W CONTRAST HISTORY: 58 years-old; Female; Abdominal distension COMPARISON: None. TECHNIQUE AND FINDINGS: Contiguous axial imaging from the level of the lungbases through the pubic symphysis was performed after the uncomplicatedadministration of intravenous Omnipaque contrast. Coronal and sagittalreconstructions were obtained. ?Auto mA and/or iterative reconstructionwere used to reduce radiation dose. FINDINGS: Motion artifact degrades image quality and limits evaluation. LOWERTHORAX: Parenchymal bands are seen at both lung bases. Nocardiomegaly. Small sliding hiatal hernia is noted. LIVER: No focal hepatic lesions. Normal contour. GALLBLADDER AND BILIARY TREE: No intra orextrahepatic biliary ductaldilation. SPLEEN: Unremarkable. PANCREAS: No ductal dilatation or massesADRENAL GLANDS: No adrenal lesions. KIDNEYS: No hydronephrosis, stones, or masses. Homogeneous and symmetricalenhancement. GI TRACT: No dilation or bowel wall thickening. Large amount of stoolburden the rectum is noted. PERITONEUM AND RETROPERITONEUM: No free air or fluid collection. LYMPH NODES: No intra-abdominal or pelvic lymph node enlargement. PELVIS/BLADDER: Bladder is fully distended with no wall thickening. Priorhysterectomy. VESSELS: Mild scattered atherosclerotic calcification of the aorta. BONES AND SOFT TISSUES: No suspicious lytic or sclerotic bony lesions. [facility]. METABOLIC PANEL ([id number])2024-05-14 22:25:37* Test Item Value Reference Range Interpretation Comme nts NA (test code = 0700716397) 140 mmol/L 135-145 K (test code = 3756844474) 3.3 mmol/L 3.5-5.0 L CL (test code = 3160421270) 104 mmol/L 98-108 CO2 TOTAL (test code = 1656978520) 29 mmol/L 23-31 AGAP (test code = 2665379993) 7 2-16 BUN (test code = 5272021585) 19 mg/dL 7-23 GLUCOSE (test code = 7071552365) 97 mg/dL 70-110 CREATININE (test code = 2160-0) 0.90 mg/dL 0.50-1.04 TOTAL BILI (test code = 7156758216) 0.4 mg/dL 0.1-1.1 CALCIUM (test code = 6703135623) 8.8 mg/dL 8.6-10.6 T PROTEIN (test code = 7827453386) 6.6 g/dL 6.3-8.2 ALBUMIN (test code = 0930471354) 3.9 g/dL 3.5-5.0 ALK PHOS (test code = 9222030017) 81 U/L 34-122 ALTv (test code = 1742-6) 22 U/L 5-35 AST(SGOT) (test code = 5702535870) 26 U/L 13-40 eGFR (test code = 17518-4) 73.3 mL/min/1.73m2 CKD-EPI eGFR (2020). Assuming creatinine has been stable day-to-day for at least three months, the eGFR indicates Category G2 (60 - 89 mL/min/1.73 m2) Lab Interpretation (test code = 92528-1) [facility]37* Test Item Value Reference Range Interpretation Comme nts LIPASE (test code = [id number]) 47 U/L 0-220 Lab Interpretation (test cod e = 67477-3) Normal [facility] WITH [id number] 22:14:17* Test Item Value Reference Range Interpretation Comme nts WBC (test code = 6690-2) 6.17 4.30-11.10 RBC (test code = 789-8) 4.21 3.93-5.25 HGB (test code = 718-7) 12.3 g/dL 11.6-15.0 HCT (test code = 4544-3) 37.7 % 35.7-45.2 MCV (test code = 787-2) 89.5 fL 80.6-95.5 MCH (test code = 785-6) 29.2 pg 25.9-32.8 MCHC (test code = 786-4) 32.6 g/dL 31.6-35.1 RDW-SD (test code = 01040-0) 43.4 fL 39.0-49.9 RDW-CV (test code = 788-0) 13.1 % 12.0-15.5 PLT (test code = 777-3) 238 166-358 MPV (test code = 05633-2) 9.9 fL 9.5-12.9 NRBC/100 WBC (test code = 1926519828) 0.0 0.0-10.0 NRBC x10^3 (test code = 4127965217) See_Comment [Automated me ssage] The system which generated this result transmitted reference range: 10*3/?L. The reference range was not used to interpret this result as normal/abnormal. GRAN MAT (NEUT) % (test code = 770-8) 60.6 % IMM GRAN % (test code = 1061427183) 0.20 % LYMPH % (test code = 736-9) 30.0 % MONO % (test code = 5905-5) 6.3 % EOS % (test code = 713-8) 2.4 % BASO % (test code = 706-2) 0.5 % GRAN MAT x10^3(ANC) (test code = 9628320296) 3.74 10*3/uL 1.88-7.09 IMM GRAN x10^3 (test code = 5839211134) 0.00-0.06 LYMPH x10^3 (test code = 731-0) 1.85 10*3/uL 1.32-3.29 MONO x10^3 (test code = 742-7) 0.39 10*3/uL 0.33-0.92 EOS x10^3 (test code = 711-2) 0.15 10*3/uL 0.03-0.39 BASO x10^3 (test code = 704-7) 0.03 10*3/uL 0.01-0.07 [facility] Specific [id number] 22:55:00* Test Item Value Reference Range Interpretation Comme nts POCT U SP GRAV (test code = 3255) 1.015 mg/dl 1.005-1.025 POCT PH U (test code = 3254) 7 mg/dl 5-8 POCT U LEUK EST (test code = 3263) + Negative - Negative POCT U NIT (test code = 3262) Neg Negative - Negati ve POCT U PROT (test code = 3259) Trace Negative - Negative POCT U GLU (test code = 3256) Normal Negative - Negati ve POCT U KETONE (test code = 3258) Neg Negative - Negative POCT U UROBILI (test code = 3260) Normal 0.2-1 POCT U BILI (test code = 3261) Neg Negative - Negative POCT U BLD (test code = 3257) Trace Negative - Negati ve POCT U COLOR (test code = 3266) dark yellow POCT U APPEAR (test code = 3267) cloudy [facility]23-[facility]16 21:54:31* Test Item Value Reference Range Interpretation Comme nts Height (test code = 6218840290) 57 in Weight (test code = 8000551317) 136 lbs Systolic BP (test code = 4155282236) 105 mmHg Diastolic BP (test code = 2337202318) 73 mmHg Heart Rate (test code = 6345572888) 71 bpm Ao root diam (test code = 9368947437) 2.70 cm Aortic root (test code = 7938542012) 2.7 cm Ao root annulus (test code = 2390100172) 2.7 cm BSA (test code = 6187813999) 1.53 m2 LVOT diameter (test code = 7776086456) 1.81 cm LVOT area (test code = 1791874877) 2.60 cm2 LA size (test code = 7456492954) 3.1 cm ACS (test code = 0301666681) 1.91 cm TR Peak Osmel (test code = 2844567015) 162.0 cm/s Triscuspid Valve Regurgitation Peak Gradient (test code = 1893570549) 10.5 mmHg PV PEAK VELOCITY (test code = 3633062299) 91.7 cm/s PV peak gradient (test code = 4083217926) 3.4 mmHg MV E-F slope (test code = 0359362782) 58.70 cm/s MV Peak E Osmel (test code = 1983524318) 91.2 cm/s MV Peak A Osmel (test code = 8969873334) 96.9 cm/s E/A ratio (test code = 2845838085) 0.94 ratio MV valve area p 1/2 method (test code = 9077355199) 3.20 cm2 MV dec slope (test code = 1810208087) 384.30 cm/s2 MV P1/2t max osmel (test code = 4004160658) 90.70 cm/s LVOT stroke volume (test code = 9088184631) 65.10 cm3 LVOT peak osmel (test code = 5637580866) 121.1 cm/s LVOT mn grad (test code = 7217905553) 2.5 mmHg AV LVOT peak gradient (test code = 5114524741) 5.9 mmHg LVOT peak VTI (test code = 9626640305) 25.3 cm LV V1 mean (test code = 4763015491) 71.30 cm/s Aortic valve mean velocity (test code = 9114534726) 84.0 cm/s Ao peak osmel (test code = 9872956861) 139.6 cm/s Ao VTI (test code = 8291766352) 28.4 cm AV area by cont VTI (test code = 9725177346) 2.3 cm2 AV area peak osmel (test code = 5708785581) 2.2 cm2 Ao max PG (test code = 9246615834) 7.80 mm[Hg] AV peak gradient (test code = 4233855269) 7.8 mmHg AV valve area (test code = 7736132877) 2.29 cm2 AV mean gradient (test code = 7952216036) 3.3 mmHg A4C EF (test code = 2679618777) 56.00 % EF(sp4-el) (test code = 4039934652) 58.00 % SV(MOD-sp4) (test code = 4257521909) 23.90 mL SV(sp4-el) (test code = 0464325380) 25.70 mL LAV(MOD-sp4) (test code = 4329737624) 19.40 mL LA Volume Index (BP) (test code = 8186582094) 13.6 mL/m2 LA volume (BP) (test code = 0132781792) 20.8 mL LAV(MOD-sp2) (test code = 9609955444) 21.00 mL MR max PG (test code = 1068250383) 8.70 mm[Hg] MR max osmel (test code = 2370492696) 147.60 cm/s Mr max osmel (test code = 1111642931) 147.6 m/s Radiology Study observation (narrative) (test code = 92743-9) RIVER (test code = RIVER) ?Left?Ventricle: Left ventricle size is normal. Normal wall thickness. Normal wall motion. Normal systolic function with a visually estimated EF of 60 - 65%. Indeterminate diastolic function. ?Right?Ventricle: Right ventricle size is normal. Normal systolic function. ?Tricuspid?Valve: Insufficient tricuspid regurgitation jet to estimate RVSP . ?IVC/SVC: IVC was not well visualized. Left VentricleLeft ventricle size is normal. Normal wall thickness. Normal wall motion. Normal systolic function with a visually estimated EF of 60 - 65%. Indeterminate diastolic function.Right VentricleRight ventricle size is normal. Normal systolic function.Left AtriumLeft atrium size is normal.Right AtriumRight atrium size is normal.IVC/SVCIVC was not well visualized.Mitral ValveMitral valve structure is normal. Trace transvalvular regurgitation.Tricuspid ValveTricuspid valve structure is normal. Trace transvalvular regurgitation. Insufficient tricuspid regurgitation jet to estimate RVSP .Aortic ValveAortic valve structure is normal.Pulmonic ValveNot well visualized.Ascending AortaNormal sized aorta.PericardiumThe pericardium is normal. No pericardial effusion.Study DetailsStudy quality experienced technical difficulty. A complete echocardiogram was performed using 2D, color flow Doppler and spectral Doppler. [facility] Specific [id number] 21:20:00* Test Item Value Reference Range Interpretation Comme nts POCT U SP GRAV (test code = 3255) 1.010 mg/dl 1.005-1.025 POCT PH U (test code = 3254) 7 mg/dl 5-8 POCT U LEUK EST (test code = 3263) + Negative - Negative POCT U NIT (test code = 3262) Negative Negative - Negati ve POCT U PROT (test code = 3259) Trace Negative - Negative POCT U GLU (test code = 3256) Negative Negative - Negati ve POCT U KETONE (test code = 3258) Negative Negative - Negative POCT U UROBILI (test code = 3260) Negative 0.2-1 POCT U BILI (test code = 3261) Negative Negative - Negative POCT U BLD (test code = 3257) 250 Negative - Negati ve POCT U COLOR (test code = 3266) Yellow POCT U APPEAR (test code = 3267) Cloudy Lab Interpretation (test cod e = 33044-2) Abnormal [facility]
[2024-09-03] MEDS ORDERED: ACETAMINOPHEN 325 MG TABLET ONE (16:05)
[2024-09-03] MEDS ORDERED: LEVALBUTEROL 1.25 MG/3 ML NEB ONE (16:05)
[2024-09-03] MEDS ORDERED: NA CHLORIDE 0.9% 1,000 ML ONE ×2 (16:05→18:32)
[2024-09-03 16:09] LABS: Absolute Lymphocytes (CBC) 1.4 K/uL (0.7-4.9); Absolute Monocytes 0.3 K/uL (0.1-1.3); Absolute Neutrophil 3.9 K/uL (1.8-8.0); Basophils % 0.6 % (0-1.3); Eosinophils % 0.9 % (0-4.4); Hematocrit 37.8 % (36.0-45.0); Hemoglobin 12.4 g/dL (12.0-15.0); Lymphocytes % 24.3 % (15.3-44.8); MCHC 32.9 g/dL (32.0-36.0); MCV 88.1 fL (80-100); MPV 8.3 fL (7.6-11.3); Monocytes % 5.7 % (3.3-12.3); Neutrophils % 68.5 % (41.7-73.7); Platelets 185 thou/uL (152-406); RBC Red Blood Cell Count 4.29 M/uL (3.86-4.86); Red Cell Distribution Width 13.8 % (12.1-15.2)
[2024-09-03 16:20] LABS: Anion Gap 12.5 mEq/L (5.0-15.0); Potassium 3.5 mEq/L (3.5-5.1)
--- NOTE | 2024-09-03 16:46 | RAD REPORT ---
EXAM: Chest Single View HISTORY: flu;Cough;Dyspnea COMPARISON: 09/25/2022 FINDINGS: LUNGS/PLEURA: The lungs are clear. No pleural effusions or pneumothorax. No pulmonary edema. MEDIASTINUM: The mediastinal silhouette is within normal limits. CARDIAC: The cardiac silhouette is within normal limits. UPPER ABDOMEN: No significant abnormality. BONES: No acute abnormality. LINES/TUBES/OTHER: N/A IMPRESSION: No evidence of acute cardiopulmonary disease.
[2024-09-03 17:19] LABS: Specific Gravity 1.027 (1.005-1.030); Urine Bacteria <20 /HPF (<20); Urine Bilirubin 1+ (Negative); Urine Blood 1+ (Negative); Urine Clarity Extremely Turbid (Clear); Urine Color Yellow (Yellow); Urine Culture Reflex Order NOT NEEDED; Urine Glucose NEGATIVE (Negative); Urine Ketones 3+ (Negative); Urine Microscopic Reflex YN ORDER UMIC; Urine Mucus Slight /HPF (None Seen); Urine Nitrite NEGATIVE (Negative); Urine Protein 1+ (Negative); Urine Urobilinogen 1+ (Normal); Urine WBC <5 /HPF (<5)
--- NOTE | 2024-09-03 19:05 | ER ---
Nurse's Notes [facility] Name: Marina Espino Age: 58 yrs Sex: Female : 1965 Arrival Date: 09/03/2024 Time: 15:15 Bed 7 Private MD: Diagnosis: Dyspnea, unspecified;Muscle weakness (generalized);Dehydration Presentation: 09/03 15:19 Chief complaint: EMS states: FLU LIKE S/S x3 DAYS, DX WEDNESDAY +FLU. Coronavirus screen: bp chills, fever, shortness of breath, Client presents with at least one sign or symptom that may indicate coronavirus-19. Provider contacted for isolation considerations. Ebola Screen: No symptoms or risks identified at this time. Initial Sepsis Screen: Does the patient meet any 2 criteria? No. Patient's initial sepsis screen is negative. Does the patient have a suspected source of infection? No. Patient's initial sepsis screen is negative. Risk Assessment: Do you want to hurt yourself or someone else? Patient reports no desire to harm self or others. Onset of symptoms is unknown. Care prior to arrival: Medication(s) given: Albuterol Neb x 1, Glucose check: 78. 15:19 Method Of Arrival: EMS: [facility] bp 15:19 Acuity: GERRI 3 bp Triage Assessment: 15:21 General: Appears in no apparent distress. ill, Behavior is calm, cooperative, bp appropriate for age. Pain: Denies pain. EENT: No deficits noted. Neuro: Reports weakness GENERALIZED. Cardiovascular: No deficits noted. Respiratory: Breath sounds are coarse bilaterally. GI: No signs and/or symptoms were reported involving the gastrointestinal system. : No signs and/or symptoms were reported regarding the genitourinary system. Derm: No deficits noted. Musculoskeletal: No deficits noted. Historical: - Allergies: 15:21 PENICILLINS; bp - PMHx: 15:21 Anxiety; Cerebral Palsy; Depression; Hyperlipidemia; bp - Immunization history:: Adult Immunizations up to date. - Infectious Disease History:: Denies. - Social history:: Smoking status: Patient denies any tobacco usage or history of. - Family history:: not pertinent. - Hospitalizations: : No recent hospitalization is reported. Screenin:28 [facility] ED Fall Risk Assessment (Adult) History of falling in the last 3 months, bp including since admission No falls in past 3 months (0 pts) Confusion or Disorientation No (0 pts) Intoxicated or Sedated No (0 pts) Impaired Gait Yes (1 pt) Mobility Assist Device Used No (0 pt) Altered Elimination No (0 pt) Score/Fall Risk Level 0 - 2 = Low Risk Oriented to surroundings. Abuse screen: Denies threats or abuse. Denies injuries from another. Nutritional screening: No deficits noted. Tuberculosis screening: No symptoms or risk factors identified. Assessment: 15:28 General: Appears distressed, ill, Behavior is cooperative, appropriate for age, anxious.bp 17:00 Reassessment: Patient appears in no apparent distress at this time. Patient is alert, bp oriented x 3, equal unlabored respirations, skin warm/dry/pink. 18:00 Reassessment: No changes from previously documented assessment. Patient is alert, bp oriented x 3, equal unlabored respirations, skin warm/dry/pink. Vital Signs: 15:19 BP 110 / 76; Pulse 80; Resp 16; Temp 99.2; Pulse Ox 98% on R/A; bp 16:30 BP 109 / 64; Pulse 93; Resp 17; Pulse Ox 99% ; jj7 18:30 BP 92 / 53; Pulse 83; Resp 14; Pulse Ox 94% ; bp Hudson Coma Score: 20:43 Eye Response: spontaneous(4). Motor Response: obeys commands(6). Verbal Response: bm8 oriented(5). Total: 15. ED Course: 15:19 Patient arrived in ED. bp 15:20 Bam Cornell MD is Attending Physician. rn 15:21 Triage completed. bp 15:21 Arm band placed on. bp 15:28 Patient has correct armband on for positive identification. bp 15:29 Sharif Vásquez, ARPAN is Primary Nurse. bp 15:55 Inserted saline lock: 20 gauge in right hand, using aseptic technique. Blood collected. jj7 Flushed with 10 mL NS. 16:02 CBC with Diff Sent. jj7 16:02 Basic Metabolic Panel Sent. jj7 16:44 XRAY Chest (1 view) In Process Unspecified. EDMS 17:08 Urinalysis w/ reflexes Sent. jj7 19:04 Chico Eubanks MD is Hospitalizing Provider. rn 19:08 Report given to joe dong. jj7 21:25 Provided Education on: ADMISSION EDUCATION. dd2 21:25 No provider procedures requiring assistance completed. Patient admitted, IV remains in dd2 place. Administered Medications: 15:38 CANCELLED (Duplicate Order): ns 0.9% 500 ml 500 ml IV at 1 bolus once; to be given as a rn bolus over 30 minutes 16:13 Drug: Levalbuterol Inhalation 1.25 mg Inhalation once Route: Inhalation; jj7 19:10 Follow up: Response: No adverse reaction dd2 16:13 Drug: Acetaminophen PO 650 mg PO once Route: PO; jj7 19:10 Follow up: Response: No adverse reaction dd2 16:13 Drug: NS 0.9% IV 1000 ml IV at 1 bolus Per protocol; to be given as a bolus over 60 jj7 minutes Route: IV; Rate: 1 bolus; Site: right hand; 19:10 Follow up: Response: No adverse reaction; IV Status: Completed infusion; IV Intake: dd2 1000ml 18:35 Drug: NS 0.9% IV 1000 ml IV at 1000 ml once; to be given as a bolus over 60 minutes bp Route: IV; Rate: 1000 ml; Site: right hand; 19:35 Follow up: Response: No adverse reaction; IV Status: Completed infusion; IV Intake: dd2 1000ml Medication: 15:28 VIS not applicable for this client. bp Intake: 19:10 IV: 1000ml; Total: 1000ml. dd2 19:35 IV: 1000ml; Total: 2000ml. dd2 Outcome: 19:05 Decision to Hospitalize by Provider. rn 21:25 Admitted to Med/surg accompanied by tech, room 221, with chart, dd2 21:25 Condition: stable 21:25 Instructed on the need for admit, Demonstrated understanding of instructions, 21:33 Patient left the ED. dd2 Signatures: Dispatcher [employer] EDMS Bam Cornell MD MD rn Peltier, Brian RN RN Cata Arcos RN RN jZelalem Juarez RN RN bm8 KRIS GARIBAY RN RN dd2
--- NOTE | 2024-09-03 19:05 | EDPHYS ---
Physician Documentation [facility] Name: Marina Espino Age: 58 yrs Sex: Female : 1965 Arrival Date: 09/03/2024 Time: 15:15 Bed 7 Private MD: ED Physician Bam Cornell HPI: 09/03 16:36 This 58 yrs old Female presents to ER via EMS with complaints of Flu Symptoms. rn 16:36 The patient has shortness of breath at rest, with light activity. Onset: The rn symptoms/episode began/occurred 3 day(s) ago. Duration: The symptoms are intermittent. The patient's shortness of breath is aggravated by exertion, light activity. Severity of symptoms: At their worst the symptoms were moderate in the emergency department the symptoms have improved. The patient has not experienced similar symptoms in the past. The patient has not recently seen a physician. Family reports diagnosis of flu 3 days ago, reports cough and shortness of breath for 3 days. No appetite. Generalized weakness. No abdominal pain or diarrhea. No hemoptysis. No chronic lung problems.. Historical: - Allergies: 15:21 PENICILLINS; bp - PMHx: 15:21 Anxiety; Cerebral Palsy; Depression; Hyperlipidemia; bp - Immunization history:: Adult Immunizations up to date. - Infectious Disease History:: Denies. - Social history:: Smoking status: Patient denies any tobacco usage or history of. - Family history:: not pertinent. - Hospitalizations: : No recent hospitalization is reported. ROS: 16:36 Constitutional: Positive for fever and chills Eyes: Negative for injury, pain, redness, rn and discharge, ENT: Positive for nasal congestion Cardiovascular: Negative for chest pain, palpitations, and edema, Respiratory: Positive for cough and shortness of breath Abdomen/GI: Positive for nausea MS/Extremity: Negative for injury and deformity, Skin: Negative for injury, rash, and discoloration, Neuro: Positive for generalized weakness Exam: 16:38 Constitutional: This is a well developed, well nourished patient who is awake, alert, rn and in no acute distress. ENT: Dry mucous membranes, no stridor Cardiovascular: Regular rate and rhythm. No pulse deficits. Respiratory: Mild tachypnea, diminished breath sounds, no stridor or retractions Abdomen/GI: Soft, non-tender MS/ Extremity: Pulses equal, no cyanosis. Neuro: Awake and alert, GCS 15 Vital Signs: 15:19 BP 110 / 76; Pulse 80; Resp 16; Temp 99.2; Pulse Ox 98% on R/A; bp 16:30 BP 109 / 64; Pulse 93; Resp 17; Pulse Ox 99% ; jj7 18:30 BP 92 / 53; Pulse 83; Resp 14; Pulse Ox 94% ; bp Tell Coma Score: 20:43 Eye Response: spontaneous(4). Motor Response: obeys commands(6). Verbal Response: bm8 oriented(5). Total: 15. MDM: 15:20 Medical Screening Exam initiated rn 19:03 Differential diagnosis: Bronchitis pneumonia, Pneumothorax. Data reviewed: vital signs, rn nurses notes, lab test result(s), radiologic studies, plain films, and as a result, I will admit patient. Consideration of Admission/Observation Patient was admitted/placed on observation. Escalation of care including admission/observation considered. Counseling: I had a detailed discussion with the patient and/or guardian regarding the historical points, exam findings, and any diagnostic results supporting the discharge/admit diagnosis, lab results, radiology results, the need for further work-up and treatment in the hospital. Response to treatment: the patient's symptoms have mildly improved after treatment, and as a result, I will admit patient. ED course: Patient flu positive as outpatient, chest x-ray clear, oxygen 93 to 94% but still tachypneic and feels very weak. Minimal improvement after IV fluids. Will observe in hospital to hospitalist service.. 09/03 15:37 Order name: CBC with Diff; Complete Time: 16:47 rn 09/03 15:37 Order name: Basic Metabolic Panel; Complete Time: 16:47 rn 09/03 15:37 Order name: Urinalysis w/ reflexes; Complete Time: 17:24 rn 09/03 20:00 Order name: CBC with Automated Diff EDMS 09/03 20:00 Order name: CBC with Automated Diff EDMS 09/03 20:00 Order name: Comprehensive Metabolic Panel EDWI 09/03 20:00 Order name: Comprehensive Metabolic Panel EDWI 09/03 15:48 Order name: XRAY Chest (1 view); Complete Time: 16:47 rn 09/03 15:37 Order name: IV Start; Complete Time: 16:02 rn Administered Medications: 15:38 CANCELLED (Duplicate Order): ns 0.9% 500 ml 500 ml IV at 1 bolus once; to be given as a rn bolus over 30 minutes 16:13 Drug: Levalbuterol Inhalation 1.25 mg Inhalation once Route: Inhalation; jj7 19:10 Follow up: Response: No adverse reaction dd2 16:13 Drug: Acetaminophen PO 650 mg PO once Route: PO; jj7 19:10 Follow up: Response: No adverse reaction dd2 16:13 Drug: NS 0.9% IV 1000 ml IV at 1 bolus Per protocol; to be given as a bolus over 60 jj7 minutes Route: IV; Rate: 1 bolus; Site: right hand; 19:10 Follow up: Response: No adverse reaction; IV Status: Completed infusion; IV Intake: dd2 1000ml 18:35 Drug: NS 0.9% IV 1000 ml IV at 1000 ml once; to be given as a bolus over 60 minutes bp Route: IV; Rate: 1000 ml; Site: right hand; 19:35 Follow up: Response: No adverse reaction; IV Status: Completed infusion; IV Intake: dd2 1000ml Disposition Summary: 09/03/24 19:05 Hospitalization Ordered Notes: Hospitalization Status: Observation rn Provider: Chico Eubanks rn Location: Telemetry/[facility] (observation) rn Condition: Stable rn Problem: new rn Symptoms: have improved rn Bed/Room Type: Standard rn Room Assignment: 221(09/03/24 20:07) lg3 Diagnosis - Dyspnea, unspecified rn - Muscle weakness (generalized) rn - Dehydration rn Forms: - Medication Reconciliation Form rn - SBAR form rn - Leadership Thank You Letter rn Signatures: Dispatcher [employer] EDaBm Morrow MD MD rn Peltier, Brian RN RN Candelaria Ward RN RN lg3 Cata Franklin RN RN KRIS Norris RN dd2 Corrections: (The following items were deleted from the chart) 15:38 15:37 NS 0.9% IV 500 ml 500 ml IV at 1 bolus once; to be given as a bolus over 30 rn minutes ordered. rn 20:07 19:05 rn lg3
[2024-09-03] MEDS ORDERED: ALBUTEROL 2.5 MG/3 ML NEB SOL NEB PRN (19:55)
[2024-09-03] MEDS ORDERED: ACETAMINOPHEN 500 MG TAB PO PRN (19:55)
--- NOTE | 2024-09-03 20:02 | P.HP ---
Certification for Inpatient Patient admitted to: Observation With expected LOS: <2 Midnights Practitioner: I am a practitioner with admitting privileges, knowledge of patient current condition, hospital course, and medical plan of care. Services: Services provided to patient in accordance with Admission requirements found in Title 42 Section 412.3 of the Code of Federal Regulations Patient History Date of Service: 09/03/24 Reason for admission: Patient is dehydrated not drinking patient history of flu History of Present Illness: Is 58 years of age with a history of cerebral palsy has been sick for the past 3 days apparently had a flu has not been drinking responded to IV fluid boluses here in the ER has been complaining of cough and dyspnea is the reason for admission Allergies Penicillins Allergy (Verified 12/08/18 03:09) Itching/Hives/Rash Home Medications: Clorazepate Dipotassium 1 tab PO BEDTIME PRN 12/08/18 Paroxetine HCl [Paroxetine ER] 1 tab PO DAILY 12/08/18 Paroxetine HCl [Paroxetine ER] 2 tab PO DAILY 12/08/18 Pravastatin Sodium 1 tab PO BEDTIME 12/08/18 Zolpidem Tartrate 1 tab PO BEDTIME 12/08/18 Bisacodyl [Dulcolax] 10 mg RC DAILY PRN #10 supp 12/09/18 Docusate [Colace Cap*] 100 mg PO BID #60 cap 12/09/18 Polyethyl Gly 3350 [Glycolax*] 17 gm PO DAILY #30 udbot 12/09/18 - Past Medical/Surgical History Diabetic: No -: cerebal palsy -: depression -: anxiety -: hyperlipidemia -: hysterectomy -: appendectomy - Social History Alcohol use: No CD- Drugs: No Caffeine use: Yes Review of Systems General: Weakness Respiratory: Cough, Shortness of Breath Physical Examination - Vital Signs Temperature: 99.2 F Blood Pressure: 110/76 Pulse: 80 Respirations: 16 Pulse Ox (%): 98 - Physical Exam General: Alert, Oriented x3 Neck: Supple Respiratory: Clear to auscultation bilaterally Cardiovascular: No edema, Regular rate/rhythm, Normal S1 S2 Gastrointestinal: Normal bowel sounds, Soft and benign - Studies Laboratory Data (last 24 hrs) 09/03/24 09/03/24 15:55 15:55 WBC 5.60 Hgb 12.4 Hct 37.8 Plt Count 185 Sodium 140 Potassium 3.5 BUN 18 Creatinine 0.85 Glucose 73 L Assessment and Plan - Problems (Diagnosis) (1) Dehydration Current Visit: Yes Status: Acute Plan: Patient is 58 years of age with a history of palsy apparently was doing well until 3 days ago contracted a flu has not been drinking respond to IV fluids here in the emergency room her chest x-ray is normal chemistries and labs are all normal planing a little dyspnea although her vital signs are all stable patient does not smoke dense of any infection appears to be little concentrated to admit for observation start on IV fluids possible discharge a.m. his chest x- ray is clear home she lives with a friend unable to walk however can eat and drink - Advance Directives Does patient have a Living Will: No Does patient have a Durable POA for Healthcare: No
[2024-09-03] MEDS: NA CHLORIDE 0.9% 1,000 ML IV SCH (22:23)
[2024-09-03 22:29] VITALS: BMI 31.7
[2024-09-03 23:56] VITALS: O2SAT 94
[2024-09-04 04:54] LABS: Absolute Lymphocytes (CBC) 1.2 K/uL (0.7-4.9); Absolute Monocytes 0.3 K/uL (0.1-1.3); Absolute Neutrophil 3.9 K/uL (1.8-8.0); Basophils % 0.4 % (0-1.3); Eosinophils % 0.8 % (0-4.4); Hematocrit 31.3 % (36.0-45.0); Hemoglobin 10.6 g/dL (12.0-15.0); Lymphocytes % 21.3 % (15.3-44.8); MCH 29.5 pg (27.0-35.0); MCHC 33.8 g/dL (32.0-36.0); MCV 87.5 fL (80-100); MPV 8.2 fL (7.6-11.3); Monocytes % 5.6 % (3.3-12.3); Neutrophils % 71.9 % (41.7-73.7); Nucleated Red Blood Cells % 0.1 % (0-0); Platelets 173 thou/uL (152-406); RBC Red Blood Cell Count 3.58 M/uL (3.86-4.86)
[2024-09-04 05:03] LABS: Albumin 2.7 g/dL (3.4-5.0); Anion Gap 9.7 mEq/L (5.0-15.0); Bilirubin Total 0.4 mg/dL (0.2-1.0); Globulin 2.7 g/dL (2.3-3.5); Potassium 3.7 mEq/L (3.5-5.1); Protein, Total 5.4 g/dL (6.4-8.2)
--- NOTE | 2024-09-04 09:55 | P.PN ---
Date of Service: 09/04/24 Ms. Espino is a 58-year-old female with a past medical history of cerebral palsy, hyperlipidemia, anxiety and depression. The patient has shortness of breath at rest, with light activity. The symptoms/episode began/occurred 3 day(s) ago. Duration: The symptoms are intermittent. The patient's shortness of breath is aggravated by exertion, light activity. She has a very weak cough. At their worst, the symptoms were moderate. The patient has not experienced similar symptoms in the past. The patient has recently seen a physician and given Tamiflu. Review of Systems 10-point ROS is otherwise unremarkable General: Unremarkable Eyes: Unremarkable ENT: Unremarkable Respiratory: Weak cough Cardiovascular: Unremarkable Gastrointestinal: Unremarkable Musculoskeletal: Unremarkable Integumentary: Unremarkable Neurological: Unremarkable Lymphatics: Unremarkable Vitals Reviewed Mild hypotension - Physical Exam General: Alert, Oriented x3, Cooperative, mild respiratory distress secondary week cough HEENT: Atraumatic, Normocephalic Neck: Supple Respiratory: Rhonchi to auscultation bilaterally, Normal air movement, weak cough Cardiovascular: No edema, Regular rate/rhythm, Normal S1 S2 Capillary refill: <2 Seconds Gastrointestinal: Soft and benign, without hepatosplenomegaly Musculoskeletal: Paraplegia secondary to cerebral palsy Integumentary: No rashes, No breakdown Neurological: Normal affect, generalized weakness, slurred speech, weak cough Lymphatics: No axilla or inguinal lymphadenopathy Assessment and plan Influenza complicated by weakness secondary to cerebral palsy Gentle hydration CPT every 4 hours Nebs every 4 hours Will hold Tamiflu secondary to antiepileptics O2 as needed Pulmonary toilet/high risk for pneumonia VTE/GI prophylaxis
--- NOTE | 2024-09-04 12:22 | P.DS ---
Admission Date: 09/03/24 Discharge Date: 09/04/24 Disposition: ROUTINE DISCHARGE Discharge Condition: FAIR Reason for Admission: Patient is dehydrated not drinking patient history of flu Brief History of Present Illness: Ms. Espino is a 58-year-old female with a past medical history of cerebral palsy, hyperlipidemia, anxiety and depression. The patient has shortness of breath at rest, with light activity. The symptoms/episode began/occurred 3 day(s) ago. Duration: The symptoms are intermittent. The patient's shortness of breath is aggravated by exertion, light activity. She has a very weak cough. At their worst, the symptoms were moderate. The patient has not experienced similar symptoms in the past. The patient has recently seen a physician and given Tamiflu. 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 Recommended to all that chest physiotherapy is important to decrease risk of pneumonia. They will help her at home. Patient denies seizure activity in the past and has been on benzodiazepines "forever" secondary to spasms. Will give her dose of tamiflu for today. She has all other medications that were prescribed at Urgent care on Wednesday. Encourage hydration. Hold HCTZ for a few days. Return to ED immediately for worsening symptoms. Follow up with PCP next week. Vital Signs/Physical Exam: Temp Pulse Resp BP Pulse Ox 97.4 F 67 12 96/43 L 96 09/04/24 08:00 09/04/24 08:00 09/04/24 08:00 09/04/24 08:00 09/04/24 08:00 General: Alert, In no apparent distress, Oriented x3, Other (paraplegia) HEENT: Atraumatic, Normocephalic Neck: Supple Respiratory: Normal air movement, Other (weak cough) Cardiovascular: No edema, Regular rate/rhythm, Normal S1 S2 Capillary refill: <2 Seconds Gastrointestinal: Hypoactive Musculoskeletal: No clubbing, No swelling Integumentary: No rashes Neurological: Normal affect, Abnormal speech, Abnormal strength, Abnormal tone Lymphatics: No axilla or inguinal lymphadenopathy External genitalia: Deferred Rectal: Deferred Laboratory Data at Discharge: WBC 5.50 thou/uL (4.3-10.9) 09/04/24 04:07 Hgb 10.6 g/dL (12.0-15.0) L D 09/04/24 04:07 Hct 31.3 % (36.0-45.0) L 09/04/24 04:07 Plt Count 173 thou/uL (152-406) 09/04/24 04:07 Sodium 142 mEq/L (136-145) 09/04/24 04:07 Potassium 3.7 mEq/L (3.5-5.1) 09/04/24 04:07 BUN 13 mg/dL (7-18) 09/04/24 04:07 Creatinine 0.72 mg/dL (0.55-1.02) 09/04/24 04:07 Glucose 76 mg/dL (74-106) 09/04/24 04:07 Total Bilirubin 0.4 mg/dL (0.2-1.0) 09/04/24 04:07 AST 45 U/L (15-37) H 09/04/24 04:07 ALT 42 U/L (13-56) 09/04/24 04:07 Alkaline Phosphatase 55 U/L (45-117) 09/04/24 04:07 Home Medications: Clorazepate Dipotassium 1 tab PO BEDTIME PRN 12/08/18 Paroxetine HCl [Paroxetine ER] 1 tab PO DAILY 12/08/18 Paroxetine HCl [Paroxetine ER] 2 tab PO DAILY 12/08/18 Pravastatin Sodium 1 tab PO BEDTIME 12/08/18 Zolpidem Tartrate 1 tab PO BEDTIME 12/08/18 Bisacodyl [Dulcolax] 10 mg RC DAILY PRN #10 supp 12/09/18 Docusate [Colace Cap*] 100 mg PO BID #60 cap 12/09/18 Polyethyl Gly 3350 [Glycolax*] 17 gm PO DAILY #30 udbot 12/09/18 Physician Discharge Instructions: 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 Recommended to all that chest physiotherapy is important to decrease risk of pneumonia. They will help her at home. Patient denies seizure activity in the past and has been on benzodiazepines "forever" secondary to spasms. Will give her dose of tamiflu for today. She has all other medications that were prescribed at Urgent care on Wednesday. Encourage hydration. Hold HCTZ for a few days. Return to ED immediately for worsening symptoms. Follow up with PCP next week. Diet: Regular Activity: Ad scarlet Followup: David Carbone DO [Primary Care Provider] -
[2024-09-04] MEDS ORDERED: OSELTAMIVIR 75 MG CAP PO ONE (12:24)
[2024-09-04 12:33] LABS: SARS-CoV-2 Antigen CONTROL BLUE LINE VIS/BG OK; SARS-CoV-2 Antigen Rapid Res Negative (Negative)
[2024-09-04 14:00] VITALS: BP 108/63; TEMP 97.3
== END 2024-09-04 13:29 | disposition home or self-care (01) ==
LOC: ER 15:15 → 2ND 19:55
PROVIDERS: ADMIT Internal Medicine Sleep Medicine; ATTEND Internal Medicine
DX: E86.0 Dehydration (principal); M62.81 Muscle weakness (generalized); R06.00 Dyspnea, unspecified; G80.9 Cerebral palsy, unspecified; F41.9 Anxiety disorder, unspecified; E78.5 Hyperlipidemia, unspecified; F32.A Depression, unspecified; Z88.0 Allergy status to penicillin; Z11.52 Encounter for screening for COVID-19
CPT/HCPCS: 96361; 85025 ×2; 81001; 80048; 36415; 80053; 87807; 87804 ×2; 71045; 96360; 99285; 87811; J7614; J7030 ×4; G0378 ×3